=== PATIENT | female | born 1985 | race Caucasian/White ===

== ENCOUNTER 2020-02-08 09:41 | Emergency (ER) | payer OTHER, SELFPAY ==
[2020-02-08 09:49] VITALS: BP 140/61; PULSE 91; RESP 18; TEMP 36.7; O2SAT 97; BMI 43.4
--- NOTE | 2020-02-08 10:02 | XR_ITS ---
EXAMINATION: XR FOOT, RIGHT CLINICAL INFORMATION: Pain and swelling COMPARISON: None TECHNIQUE: AP, lateral, and oblique views of the right foot. FINDINGS: Bones of the midfoot are well aligned. No tarsal, metatarsal or phalangeal fracture. No significant degenerative changes are noted within the foot. No focal soft tissue swelling. No radiopaque foreign body. No gross ankle joint effusion. XR/XR foot RT min 3V IMPRESSION: Normal right foot.
--- NOTE | 2020-02-08 10:26 | ED_ITS ---
HPI - General Adult General Chief complaint: General Medical Stated complaint: R FOOT PAIN NKI Time Seen by Provider: 02/08/20 10:02 Source: patient Mode of arrival: ambulatory Limitations: no limitations History of Present Illness HPI narrative: Pain to the plantar aspect of the right foot on and off for couple months worse over the past couple of days. Denies any injury. Saw her primary care doctor several months ago got better with NSAIDs. Did not have any x-rays. Pain mostly to the plantar aspect of the foot no radiation of the pain. No calf pain. No leg swelling. No foot swelling. MD complaint: Pain to the plantar aspect of the right foot on and off for couple of month Onset (ago): month(s) Severity: moderate Relieving factors: none Exacerbating factors: none Associated symptoms: denies other symptoms Related Data Previous Rx's Medication Instructions Recorded naproxen 500 mg PO BID PRN #14 tab 02/08/20 prednisone 40 mg PO DAILY 5 Days #10 tab 02/08/20 Allergies Allergy/AdvReac Type Severity Reaction Status Date / Time No Known Allergies Allergy Verified 02/08/20 09:51 [No Known Allergies*] Review of Systems Review of Systems: Constitutional: No Weight loss, No Fever ENT/Mouth: No Hearing loss, No Ear Pain, No Nasal Congestion, No Sinus Pain, No Hoarseness, No sore throat, No Rhinorrhea, No Swallowing Difficulty Eyes: No Eye Pain, No Swelling, No Redness, No Foreign Body, No Discharge, No Vision Changes Cardiovascular: No Chest Pain Respiratory: No Cough, Musculoskeletal: No joint pain, No Myalgias, No Joint Swelling Skin: No Skin Lesions, No rash Neuro: No Weakness Psych: No Social Issues, Heme/Lymph: No Bruising, No Bleeding,No Lymphadenopathy Endocrine: No Polyuria, No Polydipsia, No Temperature Intolerance Yes all other systems are reviewed and are negative [facility] Past Medical History Attestation statement: The following information was validated with the patient. Medical History (Updated 02/08/20 @ 10:42 by Yariel Varghese NP) Arthritis Asthma Social History Social History Advance Directives: No Advance Directives Information Provided: No Physical Exam Vital Signs: Vital Signs: Last Vital Signs Temp 98.0 F 02/08/20 09:49 Pulse 91 02/08/20 09:49 Resp 18 11/14/20 09:49 BP 140/61 H 11/14/20 09:49 Pulse Ox 97 02/08/20 09:49 Body Mass Index 43.4 Reviewed Const: General: cooperative and healthy appearing; No acute distress or intoxicated appearing Nutritional Appearance: average body habitus Orientation/consciousness: patient oriented x3 HENMT: Head: Yes normal to inspection Ears: hearing grossly normal bilaterally Eyes: General: appearance normal, both eyes and all related structures Visual Perez: normal visual perez by confrontation Chest: Chest palpation & inspection: normal inspection of the chest Resp: Effort & Inspection: normal respiratory effort Skin: General skin exam: no rashes or lesions noted Neuro: General: patient oriented x3 Extrem: Other: Slight tender palpation over the mid plantar aspect of the right foot. No obvious erythema, induration or open wounds. General: Yes normal to inspection Discharge Plan Discharge Clinical Impression: Plantar fasciitis Instructions: Plantar Fasciitis (ED), Plantar Fasciitis Exercises (ED) Additional Instructions: Prescription sent to your pharmacy Prescriptions: New naproxen 500 mg tablet 500 mg PO BID PRN (Reason: pain) Qty: 14 RF: 0 prednisone 20 mg tablet 40 mg PO DAILY 5 Days Qty: 10 RF: 0
== END 2020-02-08 10:55 | disposition home or self-care (01) ==
PROVIDERS: Emergency Provider Emergency Medicine; PCP Nurse Practitioner Family
DX: M72.6 Necrotizing fasciitis (principal); M79.672 Pain in left foot; M79.671 Pain in right foot
CPT/HCPCS: 73630; 99283

== ENCOUNTER 2020-03-09 14:53 | Emergency (ER) | payer OTHER, SELFPAY ==
[2020-03-09 16:01] VITALS: BP 129/82; PULSE 99; RESP 16; TEMP 36.9; O2SAT 98; BMI 45.7
--- NOTE | 2020-03-09 16:07 | ED.BACK ---
HPI - Back Pain/Injury General Chief Complaint: Back Pain/Injury <KELLY Palmer - Last Filed: 03/09/20 18:03> Stated Complaint: back pain - work injury 03/01/20 <KELLY Palmer - Last Filed: 03/09/20 18:03> Time Seen by Provider: 03/09/20 16:07 <KELLY Palmer - Last Filed: 03/09/20 18:03> Source: patient <KELLY Palmer Last Filed: 03/09/20 18:03> Mode of arrival: ambulatory <KELLY Palmer Last Filed: 03/09/20 18:03> Limitations: no limitations <KELLY Palmer Last Filed: 03/09/20 18:03> History of Present Illness HPI Narrative: 35 y/o female presenting with work related back injury that occurred on 03/01. She states that when she went to lift a 50lb box on that day she had immediate low back pain. She has been out of work since. She states the pain has been worsening making it difficult to walk, sleep, and get comfortable. She reports new onset of urinary incontinence x3 in the last 2 days. She denies numbness or tingling but reports the pain radiates down into her buttocks and posterior legs to the knee. <KELLY Palmer - Last Filed: 03/09/20 18:03> MD elicited complaint: back pain and back injury <KELLY Palmer Last Filed: 03/09/20 18:03> Onset (ago): day(s) (8) <KELLY Palmer - Last Filed: 03/09/20 18:03> Timing: progressively worsening <KELLY Palmer Last Filed: 03/09/20 18:03> Severity: severe <KELLY Palmer Last Filed: 03/09/20 18:03> Pain scale (0-10): 10 <KELLY Palmer Last Filed: 03/09/20 18:03> Similar Symptoms Previously: No <KELLY Palmer Last Filed: 03/09/20 18:03> Quality: sharp <KELLY Palmer Last Filed: 03/09/20 18:03> Location: lumbar spine <KELLY Palmer Last Filed: 03/09/20 18:03> Radiation: buttocks, left upper leg and right upper leg <KELLY Palmer Last Filed: 03/09/20 18:03> Exacerbating factors: movement, supine positioning, walking and coughing/sneezing <KELLY Palmer Last Filed: 03/09/20 18:03> Relieving factors: immobilization <KELLY Palmer - Last Filed: 03/09/20 18:03> Context: while lifting <KELLY Palmer Last Filed: 03/09/20 18:03> Associated symptoms: difficulty walking and urinary incontinence <KELLY Palmer Last Filed: 03/09/20 18:03> Treatments prior to arrival: NSAIDS <KELLY Palmer Last Filed: 03/09/20 18:03> Work related injury: Yes <KELLY Palmer Last Filed: 03/09/20 18:03> Related Data Home Medications: Previous Rx's Medication Instructions Recorded naproxen 500 mg PO BID PRN #14 tab 02/08/20 prednisone 40 mg PO DAILY 5 Days #10 tab 02/08/20 <KELLY Palmer Last Filed: 03/09/20 18:03> Allergies/Adverse Reactions: Allergies Allergy/AdvReac Type Severity Reaction Status Date / Time No Known Allergies Allergy Verified 02/08/20 09:51 [No Known Allergies*] <KELYL Palmer Last Filed: 03/09/20 18:03> Review of Systems Review of Systems: Constitutional: No Fever, No Chills Cardiovascular: No Chest Pain, No SOB Respiratory: No Cough, No Sputum, No Wheezing, No dyspnea Gastrointestinal: No Nausea, No Vomiting, No Diarrhea, No abdominal Pain Genitourinary: No Dysuria, No Urinary Frequency, No Hematuria, +urinary incontinence Musculoskeletal: + joint pain, + Myalgias Skin: No Skin Lesions, No rash Neuro: + Weakness, No Numbness, No Dizziness, No Headache Psych: No Anxiety/Panic, No Depression Heme/Lymph: No Bruising, No Lymphadenopathy Endocrine: No Polyuria, No Polydipsia <KELLY Palmer - Last Filed: 03/09/20 18:03> FORMERLY [facility], [facility] Past Medical History Attestation statement: The following information was validated with the patient. <KELLY Palmer - Last Filed: 03/09/20 18:03> Medical History: Medical History Arthritis Asthma <KELLY Palmer - Last Filed: 03/09/20 18:03> Surgical History: Surgical History (Updated 03/09/20 @ 16:06 by Mara Gurrola) H/O knee surgery H/O tubal ligation Hx of cholecystectomy Hx of shoulder surgery S/P foot surgery <KELLY Palmer - Last Filed: 03/09/20 18:03> Social History Social History: Social History Smoking Status: Never smoker Use of substances other than those prescribed or required for medical reasons: No Advance Directives: No Advance Directives Information Provided: Yes <KELLY Palmer - Last Filed: 03/09/20 18:03> Physical Exam Vital Signs: Vital Signs: Last Vital Signs Temp 98.6 F 03/09/20 18:48 Pulse 83 03/09/20 18:48 Resp 17 03/09/20 18:48 BP 105/57 L 03/09/20 18:48 Pulse Ox 97 03/09/20 18:48 Body Mass Index 45.7 Appearance: Alert. Oriented X3. Appears uncomfortable. HEENT: normal inspection CVS: Normal heart rate and rhythm. Pulses normal. Respiratory: No respiratory distress. Skin: Skin warm and dry. Normal skin color. Normal skin turgor. No rashes. Back: lumbar tenderness throughout, with SI joint tenderness bilaterally Extremities: bilateral LE weakness due to pain, unable to assess DTR due to patient positioning and pain. Neuro: Oriented X 3. Ambulates with slow but steady gait. Normal rectal tone <KELLY Palmer - Last Filed: 03/09/20 18:03> Vital Signs: Last Vital Signs Temp 98.6 F 03/09/20 18:48 Pulse 83 03/09/20 18:48 Resp 17 03/09/20 18:48 BP 105/57 L 03/09/20 18:48 Pulse Ox 97 03/09/20 18:48 Body Mass Index 45.7 <Sheyla Willett NP - Last Filed: 03/09/20 22:03> Course Course Course Narrative: 35 y/o female presenting with severe LBP and urinary incontinence. Need to r/o cauda equina syndrome. STAT MRI ordered for now. Signed out to Sheyla MAYORGA. <KELLY Palmer - Last Filed: 03/09/20 18:03> MDM - Back Pain/Injury MDM Narrative Medical decision making narrative: r/o cauda equina <KELLY Palmer - Last Filed: 03/09/20 18:03> Differential Diagnosis Differential diagnosis: Likely lumbar radiculopathy, sciatica and strain of lumbar region <KELLY Palmer - Last Filed: 03/09/20 18:03> Likely lumbar radiculopathy, strain of lumbar region and thoracic back pain <Sheyla Willett NP - Last Filed: 03/09/20 22:03> Medical Records Attestation: I reviewed the patient's medical records. <Sheyla Willett NP - Last Filed: 03/09/20 22:03> Lab Data Attestation: I reviewed the patient's lab results. <Sheyla Willett NP - Last Filed: 03/09/20 22:03> Imaging Data Lumbar MRI: Attestation: I personally reviewed and interpreted this imaging study as follows: <Sheyla Willett NP - Last Filed: 03/09/20 22:03> Radiologist's impression: EXAMINATION: MR LUMBAR SPINE WITHOUT CONTRAST CLINICAL INFORMATION: Severe lower back pain. Incontinence. COMPARISON: CT abdomen and pelvis from 06/01/2019. TECHNIQUE: MRI of the lumbar spine was obtained using routine sequences without contrast. FINDINGS: Minimal degenerative retrolisthesis of L4 on L5 and L5 on S1. Otherwise, normal anatomic alignment. The vertebral body heights are maintained. Moderate degenerative disc disease at L5-S1 with partial loss of disc height and desiccation. The remaining intervertebral discs are of normal height and signal. Mild Modic type II discogenic endplate change at T11-T12 and T12-L1. No suspicious marrow edema. The conus medullaris terminates at the level of L1. The distal spinal cord is normal in appearance. Moderate subcutaneous edema within the soft tissues of the back from the level of T12-L5. Otherwise, no Significant abnormalities of the paraspinal musculature. There is scarring of the upper pole of the right kidney. Small T2 hyperintense physiologic follicles associated with the ovaries. Otherwise, limited evaluation of the intra-abdominal structures without significant abnormalities. The abdominal aorta is of normal contour and caliber. AXIAL SPINAL LEVELS: L1-L2: Normal annular contour. There is moderate bilateral facet joint arthropathy. There is no neural foraminal stenosis. There is no spinal canal stenosis. L2-L3: Normal annular contour. There is moderate bilateral facet joint arthropathy. There is no neural foraminal stenosis. There is no spinal canal stenosis. L3-L4: Shallow diffuse disc bulge. There is moderate bilateral facet joint arthropathy. There is mild right in the left neural foraminal stenosis. There is no spinal canal stenosis. L4-L5: Shallow diffuse disc bulge. There is moderate bilateral facet joint arthropathy. There is mild right and no left neural foraminal stenosis. There is mild spinal canal stenosis. L5-S1: Mild diffuse disc bulge. There is moderate bilateral facet joint arthropathy. There is mild left and no right neural foraminal stenosis. There is mild narrowing of the subarticular zones with no overt spinal canal stenosis centrally. MR/MR lumbar spine wo con IMPRESSION: Mild multilevel degenerative spinal arthropathy of the lumbar spine as described in detail above. No overt spinal canal stenosis or nerve root compression. Moderate subcutaneous edema within the soft tissues of the back without discrete fluid collection. Nonspecific scarring of the right kidney. <Sheyla Willett NP - Last Filed: 03/09/20 22:03> Discharge Plan Discharge Clinical Impression: Strain of lumbar region Qualifiers: Encounter type: initial encounter Qualified Code(s): S39.012A - Strain of muscle, fascia and tendon of lower back, initial encounter <KELLY Palmer - Last Filed: 03/09/20 18:03> Patient Disposition: Home, Self-Care <KELLY Palmer - Last Filed: 03/09/20 18:03> Instructions: Low Back Strain (ED), Lower Back Exercises (ED), Core Strengthening Exercises (ED) <KELLY Palmer - Last Filed: 03/09/20 18:03> Additional Instructions: You were evaluated for lower back pain with an episode of bladder incontinence. MRI of the lower spine shows some swelling consistent with muscular strain. There is no indication of infection or abscess at this time. Please follow-up with your primary care physician, you may need physical therapy to help alleviate your symptoms. If symptoms get worse please return to the emergency department immeditley. you were prescribed naproxen and prednisone to help decrease the swelling and pain. You may consider using ice, heat, massage therapy to help alleviate symptoms. Thank you for choosing this emergency department for evaluation. Please follow-up with primary care physician as needed. Return to the emergency department for any new, concerning, or worsening symptoms. <KELLY Palmer - Last Filed: 03/09/20 18:03> Prescriptions: No Action naproxen 500 mg tablet 500 mg PO BID PRN (Reason: pain) Qty: 14 RF: 0 prednisone 20 mg tablet 40 mg PO DAILY 5 Days Qty: 10 RF: 0 <KELLY Palmer - Last Filed: 03/09/20 18:03> Referrals: Loy Harris MD [Physician] - 2 days (Lower back pain) <KELLY Palmer - Last Filed: 03/09/20 18:03> Interventions: ED Discharge Assessment Last Done: 03/09/20 19:45 <KELLY Palmer - Last Filed: 03/09/20 18:03> Discharge Date/Time: 03/09/20 19:46 <KELLY Palmer - Last Filed: 03/09/20 18:03>
--- NOTE | 2020-03-09 16:24 | MR_ITS ---
EXAMINATION: MR LUMBAR SPINE WITHOUT CONTRAST CLINICAL INFORMATION: Severe lower back pain. Incontinence. COMPARISON: CT abdomen and pelvis from 06/01/2019. TECHNIQUE: MRI of the lumbar spine was obtained using routine sequences without contrast. FINDINGS: Minimal degenerative retrolisthesis of L4 on L5 and L5 on S1. Otherwise, normal anatomic alignment. The vertebral body heights are maintained. Moderate degenerative disc disease at L5-S1 with partial loss of disc height and desiccation. The remaining intervertebral discs are of normal height and signal. Mild Modic type II discogenic endplate change at T11-T12 and T12-L1. No suspicious marrow edema. The conus medullaris terminates at the level of L1. The distal spinal cord is normal in appearance. Moderate subcutaneous edema within the soft tissues of the back from the level of T12-L5. Otherwise, no Significant abnormalities of the paraspinal musculature. There is scarring of the upper pole of the right kidney. Small T2 hyperintense physiologic follicles associated with the ovaries. Otherwise, limited evaluation of the intra-abdominal structures without significant abnormalities. The abdominal aorta is of normal contour and caliber. AXIAL SPINAL LEVELS: L1-L2: Normal annular contour. There is moderate bilateral facet joint arthropathy. There is no neural foraminal stenosis. There is no spinal canal stenosis. L2-L3: Normal annular contour. There is moderate bilateral facet joint arthropathy. There is no neural foraminal stenosis. There is no spinal canal stenosis. L3-L4: Shallow diffuse disc bulge. There is moderate bilateral facet joint arthropathy. There is mild right in the left neural foraminal stenosis. There is no spinal canal stenosis. L4-L5: Shallow diffuse disc bulge. There is moderate bilateral facet joint arthropathy. There is mild right and no left neural foraminal stenosis. There is mild spinal canal stenosis. L5-S1: Mild diffuse disc bulge. There is moderate bilateral facet joint arthropathy. There is mild left and no right neural foraminal stenosis. There is mild narrowing of the subarticular zones with no overt spinal canal stenosis centrally. MR/MR lumbar spine wo con IMPRESSION: Mild multilevel degenerative spinal arthropathy of the lumbar spine as described in detail above. No overt spinal canal stenosis or nerve root compression. Moderate subcutaneous edema within the soft tissues of the back without discrete fluid collection. Nonspecific scarring of the right kidney.
[2020-03-09] MEDS: oxyCODONE HCl Immed Release 5 MG TABLET PO (16:38)
[2020-03-09] MEDS: Acetaminophen 325 MG TABLET 975 MG PO (16:39)
--- NOTE | 2020-03-09 17:19 | PC.NURSE ---
MRI SCREENING FORM FAXED TO MRI BY NICOLE Stewart RN.
[2020-03-09 18:48] VITALS: BP 105/57; PULSE 83; RESP 17; TEMP 37; O2SAT 97
== END 2020-03-09 19:46 | disposition home or self-care (01) ==
PROVIDERS: Emergency Provider Internal Medicine; PCP Nurse Practitioner Family
DX: S39.012A Strain of muscle, fascia and tendon of lower back, initial encounter (principal); X50.0XXA Overexertion from strenuous movement or load, initial encounter; R32 Unspecified urinary incontinence; Y93.9 Activity, unspecified; Y92.9 Unspecified place or not applicable; Y99.0 Civilian activity done for income or pay
CPT/HCPCS: 72148; 99284; 99285

== ENCOUNTER 2020-03-21 18:42 | Emergency (ER) | payer OTHER, SELFPAY ==
[2020-03-21 19:11] VITALS: BP 134/88; PULSE 90; RESP 16; TEMP 37.1; O2SAT 98; BMI 44.2
--- NOTE | 2020-03-21 20:20 | ED.BACK ---
HPI - Back Pain/Injury General Chief Complaint: Back Pain/Injury Stated Complaint: back pain Time Seen by Provider: 03/21/20 20:14 Source: patient Mode of arrival: ambulatory Limitations: no limitations History of Present Illness HPI Narrative: Patient comes to emergency room complaining of chronic back pain. Patient states on March 01 she injured her back lifting a heavy box, approximately 50 lb, she heard a pop. Patient was seen here on March 07, patient came in complaining on that day for urinary incontinence and back pain, an MRI was done, which showed no spinal canal stenosis or nerve root compression. Patient states her symptoms have been unchanged since March 01. Patient denies any new symptoms, no stool retention or incontinence MD elicited complaint: back pain Related Data Previous Rx's Medication Instructions Recorded naproxen 500 mg PO BID PRN #14 tab 02/08/20 prednisone 40 mg PO DAILY 5 Days #10 tab 02/08/20 tramadol 50 mg PO Q8H PRN #10 tab 03/21/20 Allergies Allergy/AdvReac Type Severity Reaction Status Date / Time No Known Allergies Allergy Verified 02/08/20 09:51 [No Known Allergies*] Review of Systems Review of Systems: Constitutional : No Weight loss, No Fever, No Chills, No Night Sweats, No Fatigue, No Malaise ENT/Mouth : No Hearing loss, No Ear Pain, No Nasal Congestion, No Sinus Pain, No Hoarseness, No sore throat, No Rhinorrhea, No Swallowing Difficulty Eyes: No Eye Pain, No Swelling, No Redness, No Foreign Body, No Discharge, No Vision Changes Cardiovascular : No Chest Pain, No SOB, No Dyspnea on Exertion, No Orthopnea, No Edema, No Palpitations Respiratory : No Cough, No Sputum, No Wheezing, No Smoke Exposure, No Dyspnea Gastrointestinal : No Nausea, No Vomiting, No Diarrhea, No Constipation, No abdominal Pain, No Hematochezia, No Melena Genitourinary : no irregular bleeding, No Dysuria, No Urinary Frequency, No Hematuria, Reports urinary incontinence since March 01 which remains unchanged since then, No Urgency, No Flank Pain, No Urinary Flow Changes, No Hesitancy Musculoskeletal : Complaining of back pain radiating towards both legs Skin : No Skin Lesions, No rash Neuro : No Weakness, No Numbness, No Paresthesias, No Loss of Consciousness, No Dizziness, No Headache Psych : No Anxiety/Panic, No Depression, No SI/HI/AH/VH, No Social Issues, Heme/Lymph: No Bruising, No Bleeding,No Lymphadenopathy Endocrine : No Polyuria, No Polydipsia, No Temperature Intolerance [facility] Past Medical History Medical History Arthritis Asthma Surgical History H/O knee surgery H/O tubal ligation Hx of cholecystectomy Hx of shoulder surgery S/P foot surgery Social History Social History Smoking Status: Never smoker Advance Directives: No Advance Directives Information Provided: No Physical Exam Vital Signs: Vital Signs: Last Vital Signs Temp 98.8 F 03/21/20 19:11 Pulse 90 03/21/20 19:11 Resp 16 03/21/20 19:11 BP 134/88 03/21/20 19:11 Pulse Ox 98 03/21/20 19:11 Body Mass Index 44.2 Appearance: Alert. Oriented X3. No acute distress. Eyes: Pupils equal, round and reactive to light. ENT: Pharynx normal. Neck: Normal inspection. Neck supple. No lymph nodes noted. No crepitus CVS: Normal heart rate and rhythm. Pulses normal. Normal S1 and S2 Respiratory: No respiratory distress. Breath sounds normal. No Wheezing. No rales Abdomen: Soft and nontender. No rigidity. No distention. good BS x4 Back: Pain to palpation over lumbar area, positive bilateral straight leg leg raise test Skin: Skin warm and dry. Normal skin color. Normal skin turgor. Extremities: No lower extremity edema. No lower extremity edema. No Lacerations. No Rash, patient is ambulatory Neuro: Oriented X 3. No motor deficit. No sensory deficit. Moving all extermities. No slurred speech. Course Course Course Narrative: Patient's symptoms are unchanged for the last 20 days. MRI done on March 07 showed no acute pathology. I discussed with the patient that she needs to follow up with her primary care physician, she will likely need physical therapy MRI of March 07: Mild multilevel degenerative spinal arthropathy of the lumbar spine as described in detail above. No overt spinal canal stenosis or nerve root compression. Moderate subcutaneous edema within the soft tissues of the back without discrete fluid collection. Nonspecific scarring of the right kidney. I discussed the patient to discontinue taking naproxen, as she received 1 shot of Toradol. MDM - Back Pain/Injury Differential Diagnosis Differential diagnosis: Likely lumbar radiculopathy, sciatica and strain of lumbar region Discharge Plan Discharge Clinical Impression: Lumbar radiculopathy Patient Disposition: Home, Self-Care Instructions: Lumbar Radiculopathy (ED) Additional Instructions: Please follow-up with your primary care physician. Please stop taking naproxen Prescriptions: New tramadol 50 mg tablet 50 mg PO Q8H PRN (Reason: pain) Qty: 10 RF: 0 No Action naproxen 500 mg tablet 500 mg PO BID PRN (Reason: pain) Qty: 14 RF: 0 prednisone 20 mg tablet 40 mg PO DAILY 5 Days Qty: 10 RF: 0
[2020-03-21] MEDS: dexAMETHasone sod phosphate 4 MG/ML VIAL IM (20:44)
[2020-03-21] MEDS: Ketorolac Tromethamine 60 MG/2 ML VIAL IM (20:44)
== END 2020-03-21 20:57 | disposition home or self-care (01) ==
PROVIDERS: Emergency Provider Emergency Medicine; PCP Nurse Practitioner Family
DX: M54.16 Radiculopathy, lumbar region (principal)
CPT/HCPCS: 96372; 99284; J1100; J1885

== ENCOUNTER 2020-04-26 09:53 | Emergency (ER) | payer OTHER, SELFPAY ==
[2020-04-26 10:18] VITALS: BP 140/84; PULSE 94; RESP 16; TEMP 36.8; O2SAT 96; BMI 46.0
[2020-04-26 10:41] LABS: Glucose Urine UA NEG (NEG); Leukocyte Esterase Urine 2+ (NEG); Nitrite Urine NEG (NEG); UACC Culture Trigger YES; Urine Blood NEG (NEG); Urine Ketones NEG (NEG); Urine Protein NEG (NEG-TRACE)
[2020-04-26 10:43] LABS: Appearance Urine HAZY; Color Urine STRAW; UPreg QC Valid YES
[2020-04-26 10:44] LABS: Urine Pregnancy NEGATIVE (NEGATIVE)
--- NOTE | 2020-04-26 10:47 | ED_ITS ---
HPI - Female Genitourinary General Chief complaint: Urogenital-Female Stated complaint: ?UTI Time Seen by Provider: 04/26/20 10:18 Source: patient Mode of arrival: ambulatory Limitations: no limitations History of Present Illness HPI Narrative: Burning and discomfort with urine ?I think I have a UTI again.... It feels like it? elicited complaint: UTI Onset (ago): day(s) Severity: moderate Quality of pain: burning Consistency: intermittent Vaginal discharge: none Vaginal bleeding: none Urinary symptoms: Dysuria Exacerbating factors: urination Associated symptoms: denies other symptoms Treatment prior to arrival: none Sexual activity: No Patient : No Related Data Previous Rx's Medication Instructions Recorded naproxen 500 mg PO BID PRN #14 tab 02/08/20 prednisone 40 mg PO DAILY 5 Days #10 tab 02/08/20 tramadol 50 mg PO Q8H PRN #10 tab 03/21/20 nitrofurantoin monohyd/m-cryst 100 mg PO Q12H 7 Days #14 cap 04/26/20 [Macrobid] phenazopyridine [Pyridium] 100 mg PO TID PRN #6 tab 04/26/20 Allergies Allergy/AdvReac Type Severity Reaction Status Date / Time No Known Allergies Allergy Verified 02/08/20 09:51 [No Known Allergies*] Review of Systems Review of Systems: Constitutional: No Weight loss, No Fever, No Chills, No Night Sweats, No Fatigue, No Malaise ENT/Mouth: No Hearing loss, No Ear Pain, No Nasal Congestion, No Sinus Pain, No Hoarseness, No sore throat, No Rhinorrhea, No Swallowing Difficulty Eyes: No Eye Pain, No Swelling, No Redness, No Foreign Body, No Discharge, No Vision Changes Cardiovascular: No Chest Pain, No SOB, No Dyspnea on Exertion, No Orthopnea, No Edema, No Palpitations Respiratory: No Cough, No Sputum, No Wheezing, No Smoke Exposure, No Dyspnea Gastrointestinal: No Nausea, No Vomiting, No Diarrhea, No Constipation, No abdominal Pain, No Hematochezia, No Melena Genitourinary: no irregular bleeding, + Dysuria, No Urinary Frequency, No Hematuria, No Urinary Incontinence, No Urgency, No Flank Pain Musculoskeletal: No joint pain, No Myalgias, No Joint Swelling Skin: No Skin Lesions, No rash Neuro: No Weakness, No Numbness, No Paresthesias, No Loss of Consciousness, No Dizziness, No Headache Psych: No Social Issues Heme/Lymph: No Bruising, No Bleeding,No Lymphadenopathy Endocrine: No Polyuria, No Polydipsia, No Temperature Intolerance Yes all other systems are reviewed and are negative [facility] Past Medical History Medical History (Updated 04/26/20 @ 11:29 by Yariel Varghese NP) Anxiety Arthritis Asthma Depression PTSD (post-traumatic stress disorder) Surgical History H/O knee surgery H/O tubal ligation Hx of cholecystectomy Hx of shoulder surgery S/P foot surgery Social History Social History Smoking Status: Never smoker Smoked in Last 30 Days: No Use of substances other than those prescribed or required for medical reasons: No Advance Directives: No Advance Directives Information Provided: Yes Physical Exam Vital Signs: Vital Signs: Last Vital Signs Temp 98.2 F 04/26/20 10:18 Pulse 94 04/26/20 10:18 Resp 16 04/26/20 10:18 BP 140/84 H 04/26/20 10:18 Pulse Ox 96 04/26/20 10:18 Body Mass Index 46.0 Reviewed Const: General: cooperative and healthy appearing; No acute distress or intoxicated appearing Nutritional Appearance: average body habitus Orientation/consciousness: patient oriented x3 HENMT: Head: Yes normal to inspection Ears: hearing grossly normal bi laterally Eyes: General: appearance normal, both eyes and all related structures Visual Perez: normal visual perez by confrontation Neck: Neck: Yes normal visual inspection, No positive Brudzinski's sign, No positive Kernig's sign and No tender Thyroid: Thyroid normal Chest: Chest palpation & inspection: normal inspection of the chest Resp: Effort & Inspection: normal respiratory effort Cardio: Jugular venous distension: no JVD Rhythm: regular rhythm Heart sounds: S1 normal heart sound present and S2 normal heart sound present GI: Inspection: Yes normal to inspection Percussion: Yes normal to percussion Auscultation: normal bowel sounds : General: Yes no CVA tenderness Back/Spine/Pelvis: Back: no CVA tenderness Skin: General skin exam: no rashes or lesions noted Neuro: General: patient oriented x3 Extrem: General: Yes normal to inspection Course Course Course Narrative: AP an exam consistent with acute UTI urine with positive leukocyte esterase with WBC though there is epithelial and bacterial cells. Previous culture from July 2019 mixed yas no sensitivity. negative. No systemic symptoms. Hemodynamically stable. Will give her short course Macrobid and Pyridium culture the urine and follow up. She feels comfortable plan. Stable for discharge. MDM - Female Genitourinary Lab Data Labs: Lab Results 04/26/20 Range/Units 10:31 Urine Color STRAW Urine Appearance HAZY Urine pH 7.0 (5.0-8.0) Ur Specific [place] 1.010 (1.005-1.025) Urine Protein NEG (NEG-TRACE) MG/DL Urine Glucose (UA) NEG (NEG) MG/DL Urine Ketones NEG (NEG) MG/DL Urine Blood NEG (NEG) Urine Nitrite NEG (NEG) Ur Leukocyte Esterase 2+ H (NEG) Urine RBC 0 (0) /HPF Urine WBC 5-9 H (0-4) /HPF Ur Squamous Epith Cells 2+ /LPF Urine Bacteria 1+ /LPF Urine Test NEGATIVE (NEGATIVE) Discharge Plan Discharge Clinical Impression: Urinary tract infection Patient Disposition: Home, Self-Care Instructions: Urinary Tract Infection in Women (ED) Prescriptions: New nitrofurantoin monohyd/m-cryst [Macrobid] 100 mg capsule 100 mg PO Q12H 7 Days Qty: 14 RF: 0 phenazopyridine [Pyridium] 100 mg tablet 100 mg PO TID PRN (Reason: pain) Qty: 6 RF: 0 No Action naproxen 500 mg tablet 500 mg PO BID PRN (Reason: pain) Qty: 14 RF: 0 prednisone 20 mg tablet 40 mg PO DAILY 5 Days Qty: 10 RF: 0 tramadol 50 mg tablet 50 mg PO Q8H PRN (Reason: pain) Qty: 10 RF: 0 Referrals: Charissa Singh NP [Primary Care Provider] - 5 days
[2020-04-26 11:02] LABS: Bacteria Urine 1+ /LPF; RBC Urine 0 /HPF (0); Squamous Epithelial Cell Urine 2+ /LPF
== END 2020-04-26 11:46 | disposition home or self-care (01) ==
PROVIDERS: Nurse Practitioner Primary Care; Emergency Provider Emergency Medicine; PCP Nurse Practitioner Family
DX: N39.0 Urinary tract infection, site not specified (principal); R30.0 Dysuria; Z79.899 Other long term (current) drug therapy
CPT/HCPCS: 81001; 81003; 81025; 87086; 99283

== ENCOUNTER 2020-05-01 08:34 | Emergency (ER) | payer OTHER, SELFPAY ==
--- NOTE | ~2020-05-01 | CT_ITS ---
EXAMINATION: CT ABDOMEN AND PELVIS WITH CONTRAST CLINICAL INFORMATION: Flank pain. COMPARISON: None TECHNIQUE: Multidetector volumetric images were obtained from the superior aspect of the liver through the pubic symphysis following administration 85 mL of Omnipaque 350 intravenous contrast. Sagittal and coronal reformatted images were obtained on the technologist's workstation. Oral contrast: No This CT examination was performed using dose optimization techniques as appropriate, variously including the following: *Automated exposure control *Adjustment of mA and/or kV according to patient size (this includes techniques or standardized protocols for targeted exams where dose is matched to indication/reason for exam; i.e. extremities or head) *Use of iterative reconstruction technique DLP: 1134 mGy-cm FINDINGS: LUNG BASES: The visualized lung bases are unremarkable. LIVER, GALLBLADDER, AND BILIARY TREE: The liver is normal in size, shape, and attenuation. No focal hepatic lesion or biliary ductal dilatation is present. The gallbladder has been surgically removed. PANCREAS: Unremarkable. SPLEEN: Unremarkable. ADRENAL GLANDS: Unremarkable. KIDNEYS AND URETERS: Both kidneys are normal size, shape and position. There is a small cortical defect along the midpole right kidney likely old scar. There are punctate hypodense areas in the cortices bilaterally likely small cysts. No radiopaque calculi seen. There is no hydronephrosis. BLADDER: Unremarkable. GASTROINTESTINAL TRACT: There is scattered stool and gas seen throughout the colon without any significant distention. The small bowel loops are normal caliber. The appendix is normal caliber. No free air or free fluid. ABDOMINAL WALL: There is small umbilical hernia containing fat. LYMPH NODES: Small shotty lymph nodes are seen in the retroperitoneum of which the largest lymph node measures 9 mm axial image 39/3 VASCULAR: Unremarkable. PELVIC VISCERA: The uterus is anteverted and appears unremarkable. There is no free fluid or free air OSSEOUS STRUCTURES: No lytic or sclerotic process seen. CT/CT abdomen pelvis w con IMPRESSION: No acute intra-abdominal process seen. There is no radiopaque urolith. However there are small bilateral cortical cysts with a right mid pole cortical scar from and thinning of cortex. Nonspecific small retrocrural lymph nodes
[2020-05-01 10:06] VITALS: BP 142/85; PULSE 98; RESP 18; TEMP 37.1; O2SAT 97; BMI 46.0
[2020-05-01] MEDS: 0.9 % Sodium Chloride 1,000 ML 999 ML IV (10:19)
[2020-05-01 10:24] LABS: MANUAL DIFF FLAG NO
[2020-05-01 10:25] LABS: Basophils Percent Auto 0.5 % (0-2); Eosinophils Absolute Auto 0.3 X10*3/uL (0.0-0.4); Hematocrit 39.1 % (37-47); Imm Gran Abs Auto 0.03 X10*3/uL (0.00-0.03); Imm Gran Pct Auto 0.5 % (0.0-0.4); Lymphocytes Absolute Auto 2.1 X10*3/uL (1.2-4.9); Lymphocytes Percent Auto 33.7 % (20-40); Mean Corpuscular HGB Conc 33.2 g/dl (31.0-35.0); Mean Corpuscular Hemoglobin 28.1 pg (27.0-33.0); Mean Corpuscular Volume 84.4 fL (80-98); Mean Platelet Volume 9.5 fL (9.4-12.3); Monocytes Absolute Auto 0.3 X10*3/uL (0.1-1.2); Monocytes Percent Auto 5.1 % (2-11); Neutrophils Absolute Auto 3.5 X10*3/uL (2.0-8.3); Neutrophils Percent Auto 56.2 % (45-73); Platelet Count 247 X10*3/uL (160-400); Red Blood Count 4.63 X10*6/uL (4.20-5.50); Red Cell Distribution Width 13.6 % (11.0-16.0); White Blood Count 6.2 X10*3/uL (4.8-10.8)
[2020-05-01 10:28] LABS: Appearance Urine HAZY; Color Urine AMBER; Glucose Urine UA NEG (NEG); Leukocyte Esterase Urine TRACE (NEG); Nitrite Urine POS (NEG); UACC Culture Trigger YES; Urine Blood NEG (NEG); Urine Ketones NEG (NEG); Urine Protein NEG (NEG-TRACE)
[2020-05-01 10:30] LABS: UPreg QC Valid YES; Urine Pregnancy NEGATIVE (NEGATIVE)
[2020-05-01 10:41] LABS: Bacteria Urine TRACE /LPF; RBC Urine 0-2 /HPF (0); Squamous Epithelial Cell Urine 2+ /LPF; UACC CULT YES
[2020-05-01 10:42] LABS: Mucus Urine TRACE /LPF
[2020-05-01 11:02] LABS: Alanine Aminotransferase 23 U/L (0-31); Albumin Level 3.9 g/dL (3.5-5.0); Alkaline Phosphatase 87 U/L (39-117); Anion Gap 11 (12-20); Aspartate Amino Transferase 23 U/L (5-31); Bilirubin Total 0.2 mg/dL (0.0-1.0); Blood Urea Nitrogen 10 mg/dL (9-16); Calcium 8.8 mg/dL (8.4-10.2); Carbon Dioxide 25 mmol/L (22-29); Chloride 107 mmol/L (96-108); Creatinine Clr Calc Pharmacy 115.4; Estimated Glomerular Filt Rate > 60; Glucose Random 133 mg/dL (60-115); Potassium 3.9 mmol/L (3.3-5.1); Sodium 139 mmol/L (135-145); Total Protein 6.9 g/dL (6.5-8.0)
[2020-05-01] MEDS: iohexoL 350 MG/ML 100 ML INFUS..BTL IV (12:45)
--- NOTE | 2020-05-01 12:48 | ED.FEMALEGU ---
HPI - Female Genitourinary General Chief complaint: Urogenital-Female Stated complaint: FLANK PAIN Time Seen by Provider: 05/01/20 09:52 Source: patient Mode of arrival: ambulatory Limitations: no limitations History of Present Illness HPI Narrative: 35-year-old female blood noted past medical history presenting with complaint of bilateral flank pain states she was recently seen here and diagnosed with a UTI states those symptoms have improved now having bilateral flank pain. Denies any fever or chills. MD elicited complaint: UTI Quality of pain: aching Sexual activity: No Patient : No Related Data Previous Rx's Medication Instructions Recorded naproxen 500 mg PO BID PRN #14 tab 02/08/20 prednisone 40 mg PO DAILY 5 Days #10 tab 02/08/20 tramadol 50 mg PO Q8H PRN #10 tab 03/21/20 nitrofurantoin monohyd/m-cryst 100 mg PO Q12H 7 Days #14 cap 04/26/20 [Macrobid] ciprofloxacin HCl 500 mg PO Q12H 3 Days #6 tab 05/01/20 naproxen 500 mg PO BID PRN #14 tab 05/01/20 Allergies Allergy/AdvReac Type Severity Reaction Status Date / Time No Known Allergies Allergy Verified 02/08/20 09:51 [No Known Allergies*] Review of Systems Review of Systems: Yes all other systems are reviewed and are negative PMFSH Past Medical History Medical History Anxiety Arthritis Asthma Depression PTSD (post-traumatic stress disorder) Surgical History H/O knee surgery H/O tubal ligation Hx of cholecystectomy Hx of shoulder surgery S/P foot surgery Social History Social History Alcohol intake: never Smoking Status: Never smoker Use of substances other than those prescribed or required for medical reasons: No Advance Directives: No Advance Directives Information Provided: Yes Physical Exam Vital Signs: Vital Signs: Last Vital Signs Temp 98.7 F 05/01/20 10:06 Pulse 98 05/01/20 10:06 Resp 18 05/01/20 10:06 BP 142/85 H 05/01/20 10:06 Pulse Ox 97 05/01/20 10:06 Body Mass Index 46.0 Reviewed Const: General: cooperative and healthy appearing; No acute distress or intoxicated appearing Nutritional Appearance: average body habitus Orientation/consciousness: patient oriented x3 HENMT: Head: Yes normal to inspection Ears: hearing grossly normal bilaterally Eyes: General: appearance normal, both eyes and all related structures Visual Christiansen: normal visual christiansen by confrontation Neck: Neck: Yes normal visual inspection, No positive Brudzinski's sign, No positive Kernig's sign and No tender Thyroid: Thyroid normal Chest: Chest palpation & inspection: normal inspection of the chest Resp: Effort & Inspection: normal respiratory effort Auscultation: clear to auscultation bilaterally Cardio: Jugular venous distension: no JVD Rhythm: regular rhythm Heart sounds: S1 normal heart sound present and S2 normal heart sound present GI: Inspection: Yes normal to inspection Percussion: Yes normal to percussion Auscultation: normal bowel sounds : General: Yes no CVA tenderness Back/Spine/Pelvis: Back: no CVA tenderness Thoracic/Lumbar Spine: paraspinal muscle tenderness (No rash, swelling, pain with movement and sitting up) bilaterally Skin: General skin exam: no rashes or lesions noted Neuro: General: patient oriented x3 Extrem: General: Yes normal to inspection Course Course Course Narrative: Urine culture from previous visit grew out mixed yas consistent with your general contamination. Clinically pain for positional and with movement. UA noninfected. No leukocytosis. Hemodynamically stable. CT without evidence of acute finding specifically no stone. There is nonspecific small retrocrural lymph nodes. Exam were consistent with musculoskeletal in etiology. She finished a course of Macrobid no need for any additional antibiotics at this time. Will discharge home with NSAIDs, muscle relaxants she feels better after Toradol. Stable for discharge. MDM - Female Genitourinary Lab Data Result diagrams: 05/01/20 10:17 05/01/20 10:17 Labs: Lab Results 05/01/20 05/01/20 05/01/20 Range/Units 10:17 10:17 10:17 WBC 6.2 (4.8-10.8) X10*3/uL RBC 4.63 (4.20-5.50) X10*6/uL Hgb 13.0 (12.0-16.0) g/dl Hct 39.1 (37-47) % MCV 84.4 (80-98) fL MCH 28.1 (27.0-33.0) pg MCHC 33.2 (31.0-35.0) g/dl RDW 13.6 (11.0-16.0) % Plt Count 247 (160-400) X10*3/uL MPV 9.5 (9.4-12.3) fL Immature Gran % (Auto) 0.5 H (0.0-0.4) % Neut % (Auto) 56.2 (45-73) % Lymph % (Auto) 33.7 (20-40) % [place] % (Auto) 5.1 (2-11) % Eos % (Auto) 4.0 (0-4) % Baso % (Auto) 0.5 (0-2) % Lymph # (Auto) 2.1 (1.2-4.9) X10*3/uL [place] # (Auto) 0.3 (0.1-1.2) X10*3/uL Eos # (Auto) 0.3 (0.0-0.4) X10*3/uL Baso # (Auto) 0.0 (0.0-0.2) X10*3/uL Abs Immat Gran (auto) 0.03 (0.00-0.03) X10*3/uL Absolute Neuts (auto) 3.5 (2.0-8.3) X10*3/uL Absolute Nucleated RBC 0.000 (0.0-0.012) X10*3/uL Nucleated RBC % (auto) 0.0 (0.0-0.2) /100WBC Sodium 139 (135-145) mmol/L Potassium 3.9 (3.3-5.1) mmol/L Chloride 107 (96-108) mmol/L Carbon Dioxide 25 (22-29) mmol/L Anion Gap 11 L (12-20) BUN 10 (9-16) mg/dL Creatinine 0.86 (0.5-1.4) mg/dL Estim Creat Clear Calc 115.4 Estimated GFR > 60 Random Glucose 133 H (60-115) mg/dL Calcium 8.8 (8.4-10.2) mg/dL Total Bilirubin 0.2 (0.0-1.0) mg/dL AST 23 (5-31) U/L ALT 23 (0-31) U/L Alkaline Phosphatase 87 (39-117) U/L Total Protein 6.9 (6.5-8.0) g/dL Albumin 3.9 (3.5-5.0) g/dL Urine Color MADDY Urine Appearance HAZY Urine pH 6.0 (5.0-8.0) Ur Specific [place] 1.010 (1.005-1.025) Urine Protein NEG (NEG-TRACE) MG/DL Urine Glucose (UA) NEG (NEG) MG/DL Urine Ketones NEG (NEG) MG/DL Urine Blood NEG (NEG) Urine Nitrite POS H (NEG) Ur Leukocyte Esterase TRACE H (NEG) Urine RBC 0-2 (0) /HPF Urine WBC 5-9 H (0-4) /HPF Ur Squamous Epith Cells 2+ /LPF Urine Bacteria TRACE /LPF Urine Mucus TRACE /LPF Urine Test NEGATIVE (NEGATIVE) Discharge Plan Discharge Clinical Impression: Urinary tract infection, Back pain Patient Disposition: Home, Self-Care Instructions: Urinary Tract Infection in Women (ED) Additional Instructions: The blood work was overall stable The CT scan of the abdomen pelvis did not show any acute abnormality Your previous urine culture from the last visit did not show specific bacteria causing your urine infection however today's urine sample shows more infection than previous and for this we have changed her antibiotic for 3 days of the new antibiotic called Cipro. Drink plenty of fluids Will call you if we need to change her antibiotics Follow with primary care doctor discussed Thank you Prescriptions: New ciprofloxacin HCl 500 mg tablet 500 mg PO Q12H 3 Days Qty: 6 RF: 0 naproxen 500 mg tablet 500 mg PO BID PRN (Reason: pain) Qty: 14 RF: 0 Discontinued phenazopyridine [Pyridium] 100 mg tablet 100 mg PO TID PRN (Reason: pain) Qty: 6 RF: 0 No Action naproxen 500 mg tablet 500 mg PO BID PRN (Reason: pain) Qty: 14 RF: 0 prednisone 20 mg tablet 40 mg PO DAILY 5 Days Qty: 10 RF: 0 tramadol 50 mg tablet 50 mg PO Q8H PRN (Reason: pain) Qty: 10 RF: 0 nitrofurantoin monohyd/m-cryst [Macrobid] 100 mg capsule 100 mg PO Q12H 7 Days Qty: 14 RF: 0 Referrals: Charissa Singh PIPE CAULKER [Primary Care Provider] - 3 days Interventions: ED Discharge Assessment Last Done: 05/01/20 14:16 Discharge Date/Time: 05/01/20 14:18
== END 2020-05-01 14:18 | disposition home or self-care (01) ==
PROVIDERS: Nurse Practitioner Primary Care; Emergency Provider Emergency Medicine Emergency Medical Services; PCP Nurse Practitioner Family
DX: N30.00 Acute cystitis without hematuria (principal)
CPT/HCPCS: 36415; 74177; 80053; 81001; 81025; 85025; 87086; 96360; 99283; 99284; Q9967

== ENCOUNTER 2020-05-07 20:24 | Emergency (ER) | payer OTHER, SELFPAY ==
--- NOTE | ~2020-05-07 | CT_ITS ---
EXAMINATION: CT ABDOMEN AND PELVIS WITH CONTRAST CLINICAL INFORMATION: Bilateral flank pain. COMPARISON: 05/01/2020. TECHNIQUE: Contiguous axial thin section helical images of the abdomen and pelvis were performed following the administration of 85 mL of intravenous Omnipaque 350. The data set was reformatted in the coronal and sagittal planes and reviewed on an independent workstation. DLP: 987 mGy-cm. FINDINGS: The visualized lung bases are clear. The visualized portions of the heart are unremarkable. The liver is of normal size and attenuation without focal lesions nor intrahepatic biliary ductal dilation. The patient is status post cholecystectomy. Surgical clips are identified. The spleen, pancreas, adrenal glands are unremarkable. Both kidneys are of normal size and attenuation without hydronephrosis. There is a nonobstructive 3 mm calculus within the upper pole of the left kidney. Cortical scarring within the upper poles of each kidney is stable. Following the administration of IV contrast, prompt symmetric nephrograms are displayed. There is no abdominal free fluid. There is neither mesenteric nor retroperitoneal lymphadenopathy. There is a fat-containing umbilical hernia. Normal unopacified loops of small and large bowel are identified. A normal appendix is identified. There is a 2.5 cm right adnexal low-attenuation lesion, possibly instruments sales representative of a cyst, unchanged from prior exam. There is no pelvic free fluid. The urinary bladder is unremarkable. There is neither pelvic nor inguinal lymphadenopathy. Bone windows: Neither sclerotic nor lytic bone lesions are identified. CT/CT abdomen pelvis w con IMPRESSION: No acute abdominal or pelvic inflammatory or infectious processes. Stable 2.5 cm right adnexal cyst. Automated exposure control (Care Dose) Adjustment of the mA and/or kv according to patient size (this includes techniques or standardized protocols for targeted exams where dose is matched to indication / reason for exam; i.e. extremities or head).
[2020-05-07 21:07] VITALS: BP 108/60; PULSE 93; RESP 18; TEMP 36.8; O2SAT 97; BMI 46.0
[2020-05-07 22:23] LABS: MANUAL DIFF FLAG NO
[2020-05-07 22:25] LABS: Basophils Percent Auto 0.5 % (0-2); Eosinophils Absolute Auto 0.3 X10*3/uL (0.0-0.4); Eosinophils Percent Auto 3.7 % (0-4); Hematocrit 38.7 % (37-47); Hemoglobin 12.5 g/dl (12.0-16.0); Imm Gran Abs Auto 0.04 X10*3/uL (0.00-0.03); Imm Gran Pct Auto 0.5 % (0.0-0.4); Lymphocytes Absolute Auto 2.7 X10*3/uL (1.2-4.9); Lymphocytes Percent Auto 34.1 % (20-40); Mean Corpuscular HGB Conc 32.3 g/dl (31.0-35.0); Mean Corpuscular Hemoglobin 27.6 pg (27.0-33.0); Mean Corpuscular Volume 85.4 fL (80-98); Mean Platelet Volume 9.4 fL (9.4-12.3); Monocytes Absolute Auto 0.4 X10*3/uL (0.1-1.2); Monocytes Percent Auto 5.6 % (2-11); Neutrophils Absolute Auto 4.4 X10*3/uL (2.0-8.3); Neutrophils Percent Auto 55.6 % (45-73); Platelet Count 255 X10*3/uL (160-400); Red Blood Count 4.53 X10*6/uL (4.20-5.50); White Blood Count 7.9 X10*3/uL (4.8-10.8)
--- NOTE | 2020-05-07 22:27 | ED_ITS ---
HPI - Female Genitourinary General Chief complaint: Urogenital-Female Stated complaint: Flank pain Time Seen by Provider: 05/07/20 22:04 Source: patient Mode of arrival: ambulatory History of Present Illness HPI Narrative: This is a 35-year-old female with a history of asthma and presents with bilateral CVA tenderness that is associated with significant nausea as well as pain on urination. She states her LMP is 04/09/2020 and that there is ?no chance that she is ?. She says that she was recently treated for a UTI with Macrobid, but continued to have symptoms and then was treated with a 3 day course of Cipro, but continues to have urinary burning and has now developed the bilateral back pain/flank pain. However, she denies any fevers, chills, shortness of breath, worsening of pain with deep inspiration, food associations, cough. Related Data Previous Rx's Medication Instructions Recorded naproxen 500 mg PO BID PRN #14 tab 02/08/20 prednisone 40 mg PO DAILY 5 Days #10 tab 02/08/20 tramadol 50 mg PO Q8H PRN #10 tab 03/21/20 nitrofurantoin monohyd/m-cryst 100 mg PO Q12H 7 Days #14 cap 04/26/20 [Macrobid] ciprofloxacin HCl 500 mg PO Q12H 3 Days #6 tab 05/01/20 naproxen 500 mg PO BID PRN #14 tab 05/01/20 Allergies Allergy/AdvReac Type Severity Reaction Status Date / Time No Known Allergies Allergy Verified 02/08/20 09:51 [No Known Allergies*] Review of Systems Review of Systems: Pertinent positives and negatives as stated in HPI 10 point review of systems is otherwise negative. [facility] Past Medical History Source: nursing notes reviewed Medical History Anxiety Arthritis Asthma Depression PTSD (post-traumatic stress disorder) Surgical History H/O knee surgery H/O tubal ligation Hx of cholecystectomy Hx of shoulder surgery S/P foot surgery Social History Social History Alcohol intake: never Smoking Status: Never smoker Use of substances other than those prescribed or required for medical reasons: No Advance Directives: No Advance Directives Information Provided: Yes Physical Exam Vital Signs: Vital Signs: Last Vital Signs Temp 98.2 F 05/07/20 21:07 Pulse 90 05/07/20 23:11 Resp 16 05/07/20 23:11 BP 106/58 L 05/07/20 23:11 Pulse Ox 96 05/07/20 23:11 Body Mass Index 46.0 VITAL SIGNS: Reviewed. GENERAL: Well developed, well nourished, in no acute distress. NOSE: Nares patent bilateral OROPHARYNX: no oral lesions noted, posterior pharynx clear NECK: Supple, no adenopathy LUNGS: Normal breath sounds. No adventitious sounds or accessory muscle use. SpO2<97> CARDIOVASCULAR: Regular rate and rhythm without noted murmurs ABDOMEN: Soft, non-tender, non-distended with bowel sounds. Bilateral CVA tenderness NEUROLOGIC: Alert and oriented x 4. Strength and sensation to light touch were grossly intact x 4. Course Course Course Narrative: This is a 35-year-old female with history and clinical presentation suggestive of possible pyelonephritis, although bilateral would be unusual. Patient is status post cholecystectomy. Review of all investigations is without acute findings. No evidence to suggest pancreatitis, pyelonephritis, UTI. All results and findings were discussed with patient at bedside and she was discharged in stable conditions with instructions to follow-up with her primary care provider. MDM - Female Genitourinary Lab Data Result diagrams: 05/07/20 22:16 05/07/20 22:16 Labs: Lab Results 05/07/20 05/07/20 05/07/20 Range/Units 22:16 22:16 22:16 WBC 7.9 (4.8-10.8) X10*3/uL RBC 4.53 (4.20-5.50) X10*6/uL Hgb 12.5 (12.0-16.0) g/dl Hct 38.7 (37-47) % MCV 85.4 (80-98) fL MCH 27.6 (27.0-33.0) pg MCHC 32.3 (31.0-35.0) g/dl RDW 14.0 (11.0-16.0) % Plt Count 255 (160-400) X10*3/uL MPV 9.4 (9.4-12.3) fL Immature Gran % (Auto) 0.5 H (0.0-0.4) % Neut % (Auto) 55.6 (45-73) % Lymph % (Auto) 34.1 (20-40) % [place] % (Auto) 5.6 (2-11) % Eos % (Auto) 3.7 (0-4) % Baso % (Auto) 0.5 (0-2) % Lymph # (Auto) 2.7 (1.2-4.9) X10*3/uL [place] # (Auto) 0.4 (0.1-1.2) X10*3/uL Eos # (Auto) 0.3 (0.0-0.4) X10*3/uL Baso # (Auto) 0.0 (0.0-0.2) X10*3/uL Abs Immat Gran (auto) 0.04 H (0.00-0.03) X10*3/uL Absolute Neuts (auto) 4.4 (2.0-8.3) X10*3/uL Absolute Nucleated RBC 0.000 (0.0-0.012) X10*3/uL Nucleated RBC % (auto) 0.0 (0.0-0.2) /100WBC Sodium 143 (135-145) mmol/L Potassium 4.0 (3.3-5.1) mmol/L Chloride 111 H (96-108) mmol/L Carbon Dioxide 24 (22-29) mmol/L Anion Gap 12 (12-20) BUN 8 L (9-16) mg/dL Creatinine 0.88 (0.5-1.4) mg/dL Estim Creat Clear Calc 112.8 Estimated GFR > 60 Random Glucose 111 (60-115) mg/dL Calcium 8.9 (8.4-10.2) mg/dL Total Bilirubin 0.2 (0.0-1.0) mg/dL AST 23 (5-31) U/L ALT 25 (0-31) U/L Alkaline Phosphatase 78 (39-117) U/L Total Protein 6.9 (6.5-8.0) g/dL Albumin 4.0 (3.5-5.0) g/dL Lipase 32 (8-78) U/L Urine Color Urine Appearance Urine pH (5.0-8.0) Ur Specific [place] (1.005-1.025) Urine Protein (NEG-TRACE) MG/DL Urine Glucose (UA) (NEG) MG/DL Urine Ketones (NEG) MG/DL Urine Blood (NEG) Urine Nitrite (NEG) Ur Leukocyte Esterase (NEG) Urine Test (NEGATIVE) 05/07/20 Range/Units 22:16 WBC (4.8-10.8) X10*3/uL RBC (4.20-5.50) X10*6/uL Hgb (12.0-16.0) g/dl Hct (37-47) % MCV (80-98) fL MCH (27.0-33.0) pg MCHC (31.0-35.0) g/dl RDW (11.0-16.0) % Plt Count (160-400) X10*3/uL MPV (9.4-12.3) fL Immature Gran % (Auto) (0.0-0.4) % Neut % (Auto) (45-73) % Lymph % (Auto) (20-40) % [place] % (Auto) (2-11) % Eos % (Auto) (0-4) % Baso % (Auto) (0-2) % Lymph # (Auto) (1.2-4.9) X10*3/uL [place] # (Auto) (0.1-1.2) X10*3/uL Eos # (Auto) (0.0-0.4) X10*3/uL Baso # (Auto) (0.0-0.2) X10*3/uL Abs Immat Gran (auto) (0.00-0.03) X10*3/uL Absolute Neuts (auto) (2.0-8.3) X10*3/uL Absolute Nucleated RBC (0.0-0.012) X10*3/uL Nucleated RBC % (auto) (0.0-0.2) /100WBC Sodium (135-145) mmol/L Potassium (3.3-5.1) mmol/L Chloride (96-108) mmol/L Carbon Dioxide (22-29) mmol/L Anion Gap (12-20) BUN (9-16) mg/dL Creatinine (0.5-1.4) mg/dL Estim Creat Clear Calc Estimated GFR Random Glucose (60-115) mg/dL Calcium (8.4-10.2) mg/dL Total Bilirubin (0.0-1.0) mg/dL AST (5-31) U/L ALT (0-31) U/L Alkaline Phosphatase (39-117) U/L Total Protein (6.5-8.0) g/dL Albumin (3.5-5.0) g/dL Lipase (8-78) U/L Urine Color YELLOW Urine Appearance HAZY Urine pH 7.0 (5.0-8.0) Ur Specific [place] 1.025 (1.005-1.025) Urine Protein NEG (NEG-TRACE) MG/DL Urine Glucose (UA) NEG (NEG) MG/DL Urine Ketones NEG (NEG) MG/DL Urine Blood NEG (NEG) Urine Nitrite NEG (NEG) Ur Leukocyte Esterase NEG (NEG) Urine Test NEGATIVE (NEGATIVE) Discharge Plan Discharge Clinical Impression: Back pain Qualifiers: Back pain location: low back pain Chronicity: unspecified Back pain laterality: unspecified Sciatica presence: without sciatica Qualified Code(s): M54.5 - Low back pain Gastritis Qualifiers: Gastritis type: unspecified gastritis Chronicity: unspecified Gastritis ble eding: without bleeding Qualified Code(s): K29.70 - Gastritis, unspecified, without bleeding Patient Disposition: Home, Self-Care Instructions: Back Pain (ED) Additional Instructions: 1. Tylenol 1000 mg, orally, every 6 hours as needed for pain control. Do not exceed 4000 mg within 24 hours. 2. Would avoid ibuprofen/Motrin/Aleve/naproxen as you may be experiencing discomfort from these medications irritating her stomach. 3. Recommend using [id number] and acids for additional symptom relief. 4. Follow-up with your primary care provider by calling the office in the morning. Do not hesitate to return to the emergency department should you experience any worsening of her symptoms. Prescriptions: No Action naproxen 500 mg tablet 500 mg PO BID PRN (Reason: pain) Qty: 14 RF: 0 prednisone 20 mg tablet 40 mg PO DAILY 5 Days Qty: 10 RF: 0 tramadol 50 mg tablet 50 mg PO Q8H PRN (Reason: pain) Qty: 10 RF: 0 ciprofloxacin HCl 500 mg tablet 500 mg PO Q12H 3 Days Qty: 6 RF: 0 naproxen 500 mg tablet 500 mg PO BID PRN (Reason: pain) Qty: 14 RF: 0 nitrofurantoin monohyd/m-cryst [Macrobid] 100 mg capsule 100 mg PO Q12H 7 Days Qty: 14 RF: 0 Referrals: Physician,Unknown [Primary Care Provider] - 2 days (Re-evaluation for suspected NSAID gastritis)
[2020-05-07 22:30] LABS: Glucose Urine UA NEG (NEG); Leukocyte Esterase Urine NEG (NEG); Nitrite Urine NEG (NEG); Specific Gravity - Urine 1.025 (1.005-1.025); Urine Blood NEG (NEG); Urine Ketones NEG (NEG); Urine Protein NEG (NEG-TRACE)
[2020-05-07 22:31] LABS: Appearance Urine HAZY; Color Urine YELLOW
[2020-05-07] MEDS: 0.9 % Sodium Chloride 1,000 ML 999 ML IV (22:47)
[2020-05-07 22:53] LABS: Lipase 32 U/L (8-78)
[2020-05-07 22:58] LABS: Alanine Aminotransferase 25 U/L (0-31); Alkaline Phosphatase 78 U/L (39-117); Anion Gap 12 (12-20); Aspartate Amino Transferase 23 U/L (5-31); Bilirubin Total 0.2 mg/dL (0.0-1.0); Blood Urea Nitrogen 8 mg/dL (9-16); Calcium 8.9 mg/dL (8.4-10.2); Carbon Dioxide 24 mmol/L (22-29); Chloride 111 mmol/L (96-108); Creatinine Clr Calc Pharmacy 112.8; Estimated Glomerular Filt Rate > 60; Glucose Random 111 mg/dL (60-115); Sodium 143 mmol/L (135-145); Total Protein 6.9 g/dL (6.5-8.0)
[2020-05-07 23:11] VITALS: BP 106/58; PULSE 90; RESP 16; O2SAT 96
[2020-05-07 23:33] LABS: UPreg QC Valid YES; Urine Pregnancy NEGATIVE (NEGATIVE)
[2020-05-07] MEDS: iohexoL 350 MG/ML 100 ML INFUS..BTL 85 ML IV (23:57)
[2020-05-08] MEDS: Magnesium Hydrox/Alum Hydrox 30 ML ORAL.SUSP PO (01:10)
[2020-05-08] MEDS: Lidocaine HCl Viscous 2 % 15 ML SOLUTION 10 ML MUCOUS MEM (01:10)
[2020-05-08 01:45] VITALS: BP 101/68; PULSE 86; RESP 18; O2SAT 96
== END 2020-05-08 01:48 | disposition home or self-care (01) ==
PROVIDERS: Emergency Provider Student in an Organized Health Care Education/Training Program
DX: K29.70 Gastritis, unspecified, without bleeding (principal); R10.9 Unspecified abdominal pain; M54.5 Low back pain; Z79.899 Other long term (current) drug therapy
CPT/HCPCS: 36415; 74177; 80053; 81003; 81025; 83690; 85025; 96360; 99284; Q9967

== ENCOUNTER 2020-05-24 18:44 | Emergency (ER) | payer OTHER, SELFPAY ==
--- NOTE | ~2020-05-24 | XR_ITS ---
EXAMINATION: XR KNEE, RIGHT CLINICAL INFORMATION: 35-year-old female with knee injury. COMPARISON: None TECHNIQUE: Four views of the right knee. FINDINGS: No fracture or dislocation. No suprapatellar joint effusion. Joint spaces are well-maintained. Small marginal osteophytes involving the medial joint compartment. XR/XR knee RT 2V IMPRESSION: Minimal degenerative changes.
[2020-05-24 18:59] VITALS: BP 151/94; PULSE 102; RESP 15; TEMP 36.1; O2SAT 95; BMI 46.0
--- NOTE | 2020-05-24 20:13 | ED_ITS ---
HPI - Extremity Injury (Lower) General Chief Complaint: Extremity Injury, Lower Stated Complaint: Knee pain Time Seen by Provider: 05/24/20 19:19 Source: patient Mode of arrival: ambulatory Limitations: no limitations History of Present Illness HPI Narrative: Patient presents to ED for right knee pain. Patient states needs evening she got up from her bed and stood up and then felt her right knee lock up and then heard a pop which caused her to fall to the ground. Patient denies hitting head or loss of consciousness. Patient has history of medial meniscus tear on the same knee and states pain is in the same area. Patient denies feeling dizzy head, chest pain, shortness of breath, headache or abdominal pain before falling to the ground. Related Data Previous Rx's Medication Instructions Recorded naproxen 500 mg PO BID PRN #14 tab 02/08/20 prednisone 40 mg PO DAILY 5 Days #10 tab 02/08/20 tramadol 50 mg PO Q8H PRN #10 tab 03/21/20 nitrofurantoin monohyd/m-cryst 100 mg PO Q12H 7 Days #14 cap 04/26/20 [Macrobid] ciprofloxacin HCl 500 mg PO Q12H 3 Days #6 tab 05/01/20 naproxen 500 mg PO BID PRN #14 tab 05/01/20 tramadol 50 mg PO TID PRN #9 tab 05/24/20 Allergies Allergy/AdvReac Type Severity Reaction Status Date / Time No Known Allergies Allergy Verified 02/08/20 09:51 [No Known Allergies*] Review of Systems Review of Systems: Yes all other systems are reviewed and are negative Constitutional: Constitutional: Reports as per HPI and Reports no additional constitutional complaints Eyes: Eyes: Reports as per HPI and Reports no additional eye complaints ENT: Reports system reviewed and no additional complaints, except as documented and Reports as per HPI Cardiovascular: Cardiovascular: Reports as per HPI and Reports no additional cardiovascular complaints Respiratory: Respiratory: Reports as per HPI and Reports no additional respiratory complaints Gastrointestinal: Gastrointestinal: Reports as per HPI Genitourinary: Genitourinary: Reports no additional female genitourinary complaints and Reports as per HPI Musculoskeletal: Musculoskeletal: Reports no additional musculoskeletal complaints, Reports as per HPI and Reports arthralgias Comments: Right knee pain Neurologic: Reports system reviewed and no additional complaints, except as documented and Reports as per HPI Psychiatric: Psychiatric: Reports no additional psychiatric complaints and Reports as per HPI [facility] Past Medical History Medical History Anxiety Arthritis Asthma Depression PTSD (post-traumatic stress disorder) Surgical History H/O knee surgery H/O tubal ligation Hx of cholecystectomy Hx of shoulder surgery S/P foot surgery Social History Social History Alcohol intake: never Smoking Status: Never smoker Smoked in Last 30 Days: No Use of substances other than those prescribed or required for medical reasons: No Any prior treatment program specific to substance use: No Advance Directives: No Advance Directives Information Provided: No Physical Exam Vital Signs: Vital Signs: Last Vital Signs Temp 97 F 05/24/20 18:59 Pulse 102 H 05/24/20 18:59 Resp 15 05/24/20 18:59 BP 151/94 H 05/24/20 18:59 Pulse Ox 95 05/24/20 18:59 Body Mass Index 46.0 Const: General: cooperative, healthy appearing, comfortable, no acute distress, well developed, alert, awake and Physically active Orientation/consciousness: patient oriented x3 HENMT: Head: Yes normal to inspection, Yes No palpable skull fracture present, Yes normocephalic, Yes atraumatic, No abrasion, No Acrocyanosis present, No Marcos's sign, No contusion, No cranial bruits, No hematoma, No laceration, No occipital foramen tenderness, No palpable skull fracture, No raccoon eyes, No scalp lesion, No scalp tenderness, No Temporal artery tenderness present and No periorbital ecchymosis Eyes: General: appearance normal, both eyes and all related structures Neck: Neck: Yes normal visual inspection, Yes full ROM, Yes no lymphadenopathy, Yes no meningeal signs, Yes trachea midline, Yes supple and No tender Chest: Chest palpation & inspection: normal inspection of the chest and normal palpation of entire chest wall Resp: Effort & Inspection: normal respiratory effort and able to speak in complete sentences Auscultation: clear to auscultation bilaterally Cardio: Jugular venous distension: no JVD Heart sounds: S1 normal heart sound present and S2 normal heart sound present GI: Inspection: Yes normal to inspection Palpation (GI): Soft to palpation, not firm, nontender, no guarding and not rigid : General: No CVA tenderness and Yes no CVA tenderness Back/Spine/Pelvis: Back: no CVA tenderness, No CVA tenderness and No back tenderness Skin: General skin exam: no rashes or lesions noted and elasticity normal Neuro: General: patient oriented x3, no meningeal signs and CN's II-XI intact bilaterally Cranial nerves: Yes CN's II-XII intact bilaterally Extrem: Other: Right lower extremity: Positive for tenderness on medial aspect of right knee. Negative for any bone tenderness. Negative for deformity, redness. Pulses of foot and intact. Negative for leg deformity. Neuro exam is intact. Left lower extremity normal and motor/neuro/vascular exam intact Psych: Appearance: grossly normal, well kempt and not disheveled Course Course Course Narrative: Patient sent for right knee x-ray Reevaluation(s) Reevaluation #1: Right knee x-ray shows arthritis negative for fracture or dislocation. Patient informed that she should call her [facility] for early appointment to get an MRI to make sure there is not another meniscus tear. Patient placed in knee immobilizer, and crutches. Time: 20:22 MDM - Extremity Injury (Lower) MDM Narrative Medical decision making narrative: Right knee sprain Discharge Plan Discharge Clinical Impression: Knee sprain Patient Disposition: Home, Self-Care Instructions: Knee Sprain (ED) Additional Instructions: Return to the ED immediately for swelling of knee, redness, paralysis of lower extremity, numbness,/tingling, fever, chills, or any other concerning symptoms. Please call your doctor at [facility] for an early appointment to get MRI on right knee to rule out a new meniscus tear. Prescriptions: New tramadol 50 mg tablet 50 mg PO TID PRN (Reason: pain) Qty: 9 RF: 0 No Action naproxen 500 mg tablet 500 mg PO BID PRN (Reason: pain) Qty: 14 RF: 0 prednisone 20 mg tablet 40 mg PO DAILY 5 Days Qty: 10 RF: 0 tramadol 50 mg tablet 50 mg PO Q8H PRN (Reason: pain) Qty: 10 RF: 0 ciprofloxacin HCl 500 mg tablet 500 mg PO Q12H 3 Days Qty: 6 RF: 0 naproxen 500 mg tablet 500 mg PO BID PRN (Reason: pain) Qty: 14 RF: 0 nitrofurantoin monohyd/m-cryst [Macrobid] 100 mg capsule 100 mg PO Q12H 7 Days Qty: 14 RF: 0 Stand Alone Forms: Work/School Release Interventions: ED Discharge Assessment Last Done: 05/24/20 21:11 Discharge Date/Time: 05/24/20 21:14 Print Language: Congolese
[2020-05-24] MEDS: Ketorolac Tromethamine 30 MG/ML VIAL IM (20:39)
== END 2020-05-24 21:14 | disposition home or self-care (01) ==
PROVIDERS: PCP Nurse Practitioner Family
DX: S83.91XA Sprain of unspecified site of right knee, initial encounter (principal); M25.561 Pain in right knee; W01.0XXA Fall on same level from slipping, tripping and stumbling without subsequent striking against object, initial encounter; Y93.9 Activity, unspecified; Y92.003 Bedroom of unspecified non-institutional (private) residence as the place of occurrence of the external cause; Y99.9 Unspecified external cause status; Z79.899 Other long term (current) drug therapy
CPT/HCPCS: 73560; 96372; 99284; J1885

== ENCOUNTER 2020-05-28 20:40 | Emergency (ER) | payer OTHER, SELFPAY ==
[2020-05-28 21:22] VITALS: BP 104/55; PULSE 87; RESP 16; TEMP 36.8; O2SAT 99; BMI 46.0
--- NOTE | 2020-05-28 21:30 | ED_ITS ---
HPI - Extremity Injury (Lower) General Chief Complaint: Extremity Injury, Lower Stated Complaint: KNEE PAIN Time Seen by Provider: 05/28/20 21:29 Related Data Previous Rx's Medication Instructions Recorded naproxen 500 mg PO BID PRN #14 tab 02/08/20 prednisone 40 mg PO DAILY 5 Days #10 tab 02/08/20 tramadol 50 mg PO Q8H PRN #10 tab 03/21/20 nitrofurantoin monohyd/m-cryst 100 mg PO Q12H 7 Days #14 cap 04/26/20 [Macrobid] ciprofloxacin HCl 500 mg PO Q12H 3 Days #6 tab 05/01/20 naproxen 500 mg PO BID PRN #14 tab 05/01/20 tramadol 50 mg PO TID PRN #9 tab 05/24/20 cyclobenzaprine 10 mg PO TID PRN #20 tab 05/28/20 nitrofurantoin monohyd/m-cryst 100 mg PO Q12H 7 Days #14 cap 07/04/20 [Macrobid] phenazopyridine [Pyridium] 200 mg PO TID PRN #6 tab 07/04/20 Allergies Allergy/AdvReac Type Severity Reaction Status Date / Time No Known Allergies Allergy Verified 07/04/20 14:36 [No Known Allergies*] [facility] Past Medical History Medical History (Updated 07/05/20 @ 00:01 by Greta Campuzano) Anxiety Arthritis Asthma Chronic cystitis Depression PTSD (post-traumatic stress disorder) Surgical History H/O knee surgery H/O tubal ligation Hx of cholecystectomy Hx of shoulder surgery S/P foot surgery Social History Social History Alcohol intake: never Use of substances other than those prescribed or required for medical reasons: No Advance Directives: No Advance Directives Information Provided: Yes Patient : No Physical Exam Vital Signs: Vital Signs: Last Vital Signs Temp 98.3 F 05/28/20 21:22 Pulse 87 05/28/20 21:22 Resp 16 05/28/20 21:22 BP 104/55 L 05/28/20 21:22 Pulse Ox 99 05/28/20 21:22 Body Mass Index 46.0 Discharge Plan Discharge Clinical Impression: Knee meniscus pain Patient Disposition: Home, Self-Care Instructions: Meniscus Tear (ED) Additional Instructions: You were evaluated for knee pain. You were seen here 3 days ago for the same concern. You must wear your knee immobilizer to prevent further injury. Please call Orthopedics for follow-up. We cannot order an MRI for you, this is a test that needs to be ordered as an outpatient. Again, please wear your knee immobilizer to prevent further injury. Thank you for choosing this emergency department for evaluation. Please follow-up with primary care physician as needed. Return to the emergency department for any new, concerning, or worsening symptoms. Prescriptions: New cyclobenzaprine 10 mg tablet 10 mg PO TID PRN (Reason: muscle spasm) Qty: 20 RF: 0 No Action naproxen 500 mg tablet 500 mg PO BID PRN (Reason: pain) Qty: 14 RF: 0 prednisone 20 mg tablet 40 mg PO DAILY 5 Days Qty: 10 RF: 0 tramadol 50 mg tablet 50 mg PO Q8H PRN (Reason: pain) Qty: 10 RF: 0 ciprofloxacin HCl 500 mg tablet 500 mg PO Q12H 3 Days Qty: 6 RF: 0 naproxen 500 mg tablet 500 mg PO BID PRN (Reason: pain) Qty: 14 RF: 0 nitrofurantoin monohyd/m-cryst [Macrobid] 100 mg capsule 100 mg PO Q12H 7 Days Qty: 14 RF: 0 phenazopyridine [Pyridium] 200 mg tablet 200 mg PO TID PRN (Reason: pain) Qty: 6 RF: 0 nitrofurantoin monohyd/m-cryst [Macrobid] 100 mg capsule 100 mg PO Q12H 7 Days Qty: 14 RF: 0 tramadol 50 mg tablet 50 mg PO TID PRN (Reason: pain) Qty: 9 RF: 0 Interventions: ED Discharge Assessment Last Done: 05/28/20 22:22 Discharge Date/Time: 05/28/20 22:25
--- NOTE | 2020-05-28 21:35 | PC.NURSE ---
COLD PACK PLACED TO RIGHT KNEE
[2020-05-28] MEDS: Cyclobenzaprine HCl 10 MG TABLET PO (21:57)
== END 2020-05-28 22:25 | disposition home or self-care (01) ==
PROVIDERS: Emergency Provider Internal Medicine; PCP Nurse Practitioner Family
DX: M25.561 Pain in right knee (principal)
CPT/HCPCS: 99283; 99284

== ENCOUNTER 2020-06-24 20:16 | Emergency (ER) | payer OTHER, SELFPAY | END 2020-06-24 21:21 | disposition left against medical advice (07) | LOC: HO.ED 21:20 | PROVIDERS: Emergency Provider Emergency Medicine Emergency Medical Services; PCP Nurse Practitioner Family | DX: R10.9 Unspecified abdominal pain (principal) ==

== ENCOUNTER 2020-07-04 14:03 | Emergency (ER) | payer OTHER, SELFPAY ==
--- NOTE | ~2020-07-04 | US_ITS ---
EXAMINATION: RENAL ULTRASOUND. CLINICAL INFORMATION: Severe left flank pain and hematuria. COMPARISON: CT abdomen and pelvis with contrast 05/07/2020. TECHNIQUE: Retroperitoneal ultrasound imaging was performed. FINDINGS: The right kidney is normal size measuring 10.8 cm in length, 5.7 cm in AP and 5.1 cm in transverse dimension. There is a small cortical defect likely a scar along the midpole. No echogenic calculi, cyst, solid mass or hydronephrosis. The left kidney is normal size measuring 11.2 cm in length, 5.7 cm in AP and 5.1 cm in transverse dimension. There is a small anechoic cyst upper pole measuring 1.6 x 1.1 x 1.2 cm. No echogenic stones or hydronephrosis seen. US/US renal LT IMPRESSION: Small cyst upper pole left kidney. There are no echogenic stones or hydronephrosis in either kidney. Likely small scar along the midpole lateral cortex right kidney.
[2020-07-04 14:36] VITALS: BP 116/75; PULSE 84; RESP 16; TEMP 37; O2SAT 100; BMI 47.8
[2020-07-04 14:57] LABS: Glucose Urine UA NEG (NEG); Leukocyte Esterase Urine 1+ (NEG); Nitrite Urine NEG (NEG); Specific Gravity - Urine 1.025 (1.005-1.025); UACC Culture Trigger YES; Urine Blood 3+ (NEG); Urine Ketones NEG (NEG); Urine Protein TRACE MG/DL (NEG-TRACE)
[2020-07-04 15:02] LABS: Appearance Urine CLOUDY; Color Urine YELLOW
[2020-07-04 15:05] LABS: Mucus Urine 3+ /LPF; RBC Urine TNTC /HPF (0); Squamous Epithelial Cell Urine 3+ /LPF
[2020-07-04 15:40] LABS: MANUAL DIFF FLAG NO
[2020-07-04] MEDS: Ketorolac Tromethamine 30 MG/ML VIAL IVPUSH (15:40)
[2020-07-04] MEDS: ondansetron HCL 4 MG/2 ML VIAL IVPUSH (15:40)
[2020-07-04] MEDS: 0.9 % Sodium Chloride 1,000 ML 999 ML IV (15:41)
[2020-07-04 15:42] LABS: Basophils Percent Auto 0.4 % (0-2); Eosinophils Absolute Auto 0.1 X10*3/uL (0.0-0.4); Eosinophils Percent Auto 1.3 % (0-4); Hematocrit 41.7 % (37-47); Hemoglobin 13.1 g/dl (12.0-16.0); Imm Gran Abs Auto 0.07 X10*3/uL (0.00-0.03); Imm Gran Pct Auto 0.7 % (0.0-0.4); Lymphocytes Absolute Auto 1.5 X10*3/uL (1.2-4.9); Lymphocytes Percent Auto 15.2 % (20-40); Mean Corpuscular HGB Conc 31.4 g/dl (31.0-35.0); Mean Corpuscular Hemoglobin 27.3 pg (27.0-33.0); Mean Corpuscular Volume 87.1 fL (80-98); Mean Platelet Volume 9.4 fL (9.4-12.3); Monocytes Absolute Auto 0.4 X10*3/uL (0.1-1.2); Monocytes Percent Auto 4.2 % (2-11); Neutrophils Absolute Auto 7.9 X10*3/uL (2.0-8.3); Neutrophils Percent Auto 78.2 % (45-73); Platelet Count 263 X10*3/uL (160-400); Red Blood Count 4.79 X10*6/uL (4.20-5.50); Red Cell Distribution Width 13.5 % (11.0-16.0); White Blood Count 10.1 X10*3/uL (4.8-10.8)
--- NOTE | 2020-07-04 15:44 | PC.NURSE ---
patient a&ox3, c/o 12/04 lt flank pain pt states it feels as if somebody is stabbing her and the pain radiates down towards her groin, iv inserted, labs drawn, pt medicated for pain and nausea, urine was obtained in triage, ss, will continue to monitor
[2020-07-04 15:45] LABS: UPreg QC Valid YES; Urine Pregnancy NEGATIVE (NEGATIVE)
[2020-07-04 16:03] LABS: Alanine Aminotransferase 29 U/L (0-31); Albumin Level 4.3 g/dL (3.5-5.0); Alkaline Phosphatase 93 U/L (39-117); Anion Gap 15 (12-20); Aspartate Amino Transferase 25 U/L (5-31); Bilirubin Total 0.3 mg/dL (0.0-1.0); Blood Urea Nitrogen 14 mg/dL (9-16); Calcium 9.2 mg/dL (8.4-10.2); Carbon Dioxide 26 mmol/L (22-29); Chloride 106 mmol/L (96-108); Creatinine Clr Calc Pharmacy 98.6; Estimated Glomerular Filt Rate > 60; Glucose Random 121 mg/dL (60-115); Potassium 4.6 mmol/L (3.3-5.1); Sodium 142 mmol/L (135-145); Total Protein 7.2 g/dL (6.5-8.0)
[2020-07-04] MEDS: Morphine Sulfate 4 MG/ML CARTRIDGE IVPUSH (16:27)
[2020-07-04 16:28] VITALS: BP 125/82; PULSE 88; RESP 20; O2SAT 100
--- NOTE | 2020-07-04 16:30 | ED_ITS ---
HPI - Abdominal Pain General Chief Complaint: Abdominal Pain <KELLY Palmer - Last Filed: 07/04/20 17:13> Stated Complaint: flank pain - nausea <KELLY Palmer - Last Filed: 07/04/20 17:13> Time Seen by Provider: 07/04/20 15:31 <KELLY Palmer - Last Filed: 07/04/20 17:13> Source: patient <KELLY Palmer - Last Filed: 07/04/20 17:13> Mode of arrival: ambulatory <KELLY Palmer - Last Filed: 07/04/20 17:13> Limitations: no limitations <KELLY Palmer Last Filed: 07/04/20 17:13> History of Present Illness HPI narrative: 35 y/o female with history of morbid obesity, chronic low back pain, migraines, chronic cystitis, asthma, arthritis who presents to the ED c/o severe sharp left sided flank pain that started yesterday and escalated today. She developed severe nausea and vomited 6x this afternoon before coming to the ER. She states the pain is in her middle back and radiates to her left lower abdomen and left pelvic area. She reports chronic dysuria which is currently unchanged from her baseline. She denies history of kidney stones. No fever or chills at home. No hematuria or urinary frequency. Not sexually active, no vaginal discharge. <KELLY Palmer - Last Filed: 07/04/20 17:13> MD elicited complaint: flank pain <KELLY Palmer - Last Filed: 07/04/20 17:13> Pertinent past history: none <KELLY Palmer - Last Filed: 07/04/20 17:13> Onset (ago): day(s) (1) <KELLY Palmer - Last Filed: 07/04/20 17:13> Pain Consistency: constant <KELLY Palmer Last Filed: 07/04/20 17:13> Location: L flank <KELLY Palmer Last Filed: 07/04/20 17:13> Severity: severe <KELLY Palmer Last Filed: 07/04/20 17:13> Quality: stabbing <KELLY Palmer - Last Filed: 07/04/20 17:13> Radiation: LLQ <KELLY Palmer Last Filed: 07/04/20 17:13> Exacerbating factors: nothing <KELLY Palmer Last Filed: 07/04/20 17:13> Relieving factors: nothing <KELLY Palmer - Last Filed: 07/04/20 17:13> Context: history of similar episodes <KELLY Palmer Last Filed: 07/04/20 17:13> Associated symptoms: nausea, vomiting and dysuria <KELLY Palmer Last Filed: 07/04/20 17:13> Related Data Home Medications: Previous Rx's Medication Instructions Recorded naproxen 500 mg PO BID PRN #14 tab 02/08/20 prednisone 40 mg PO DAILY 5 Days #10 tab 02/08/20 tramadol 50 mg PO Q8H PRN #10 tab 03/21/20 nitrofurantoin monohyd/m-cryst 100 mg PO Q12H 7 Days #14 cap 04/26/20 [Macrobid] ciprofloxacin HCl 500 mg PO Q12H 3 Days #6 tab 05/01/20 naproxen 500 mg PO BID PRN #14 tab 05/01/20 tramadol 50 mg PO TID PRN #9 tab 05/24/20 cyclobenzaprine 10 mg PO TID PRN #20 tab 05/28/20 nitrofurantoin monohyd/m-cryst 100 mg PO Q12H 7 Days #14 cap 07/04/20 [Macrobid] phenazopyridine [Pyridium] 200 mg PO TID PRN #6 tab 07/04/20 <KELLY Palmer - Last Filed: 07/04/20 17:13> Allergies/Adverse Reactions: Allergies Allergy/AdvReac Type Severity Reaction Status Date / Time No Known Allergies Allergy Verified 07/04/20 14:36 [No Known Allergies*] <KELLY Palmer Last Filed: 07/04/20 17:13> Review of Systems Review of Systems Constitutional: No Fever, No Chills ENT/Mouth: No sore throat, No Rhinorrhea, No Swallowing Difficulty Eyes: No Eye Pain, No Swelling, No Redness Cardiovascular: No Chest Pain, No SOB, No Orthopnea, No Edema Respiratory: No Cough, No Sputum, No Wheezing, No dyspnea Gastrointestinal: + Nausea, + Vomiting, No Diarrhea, + abdominal Pain, No Hematochezia, No Melena Genitourinary: + Dysuria, No Urinary Frequency, No Hematuria Musculoskeletal: No joint pain, No Myalgias Skin: No Skin Lesions, No rash Neuro: No Weakness, No Numbness, No Dizziness, + Headache Psych: + Anxiety/Panic, No Depression Heme/Lymph: No Bruising, No Lymphadenopathy Endocrine: No Polyuria, No Polydipsia <KELLY Palmer - Last Filed: 07/04/20 17:13> Physical Exam Vital Signs: Vital Signs: Last Vital Signs Temp 98.2 F 07/04/20 18:04 Pulse 83 07/04/20 18:04 Resp 18 07/04/20 18:04 BP 126/80 07/04/20 18:04 Pulse Ox 99 07/04/20 18:04 Body Mass Index 47.8 Appearance: Alert. Oriented X3. Appears uncomfortable. Eyes: Pupils equal, round and reactive to light. ENT: Pharynx normal. Neck: Normal inspection. Neck supple. CVS: Normal heart rate and rhythm. Pulses normal. Respiratory: No respiratory distress. Breath sounds normal. Abdomen: Obsese, Soft with LLQ pain to deep palpation, normal +BS x4, +CVA tenderness on the left. Pelvic exam deferred. Skin: Skin warm and dry. Normal skin color. Normal skin turgor. No rashes. Extremities: No lower extremity edema. Neuro: Oriented X 3. Non-focal, moves all 4 extremities, speaks in clear sentences. <KELLY Palmer - Last Filed: 07/04/20 17:13> Vital Signs: Last Vital Signs Temp 98.2 F 07/04/20 18:04 Pulse 83 07/04/20 18:04 Resp 18 07/04/20 18:04 BP 126/80 07/04/20 18:04 Pulse Ox 99 07/04/20 18:04 Body Mass Index 47.8 <Sheyla Willett NP - Last Filed: 07/04/20 18:30> Course Course Course Narrative: 35 y/o female presenting with acute onset of severe left sided flank pain that radiates to her LLQ and left pelvic area as well as persistent vomiting. Clinical picture is consistent with kidney stones. Her UA has blood. She is not due for her menses for another 2+ weeks. She denies vaginal bleeding. She recently had 2 CT scans of her abdomen/pelvis in April for flank pain which were both negative. Will start with renal U/S to assess for hydronephrosis and hold off on further radiation for now. She is afebrile and hemodynamically stable. Will treat with Zofran and Toradol and reassess. <KELLY Palmer - Last Filed: 07/04/20 17:13> Ultrasound negative for renal stone, pyelo, hydro. Urine is suspicious of UTI. Will treat for UTI with Macrobid and Pyridium. Discussion with patient regarding plan of care and discharge home. Patient verbalized understanding of and agrees to plan. <Sheyla Willett NP - Last Filed: 07/04/20 18:30> Reevaluation(s) Reevaluation #1: No leukocytosis on blood work. Normal renal function. She continues to report flank pain after Toradol, will try Morphine for pain. Renal U/S pending. <KELLY Palmer - Last Filed: 07/04/20 17:13> MDM - Abdominal Pain Medical Records Attestation: I reviewed the patient's medical records. <Sheyla Willett NP - Last Filed: 07/04/20 18:30> Lab Data Attestation: I reviewed the patient's lab results. <Sheyla Willett NP - Last Filed: 07/04/20 18:30> Result diagrams: : 07/04/20 15:37 07/04/20 15:37 <KELLY Palmer - Last Filed: 07/04/20 17:13> Labs: Lab Results 07/04/20 07/04/20 07/04/20 Range/Units 14:45 14:45 15:37 WBC 10.1 (4.8-10.8) X10*3/uL RBC 4.79 (4.20-5.50) X10*6/uL Hgb 13.1 (12.0-16.0) g/dl Hct 41.7 (37-47) % MCV 87.1 (80-98) fL MCH 27.3 (27.0-33.0) pg MCHC 31.4 (31.0-35.0) g/dl RDW 13.5 (11.0-16.0) % Plt Count 263 (160-400) X10*3/uL MPV 9.4 (9.4-12.3) fL Immature Gran % (Auto) 0.7 H (0.0-0.4) % Neut % (Auto) 78.2 H (45-73) % Lymph % (Auto) 15.2 L (20-40) % Sunflower % (Auto) 4.2 (2-11) % Eos % (Auto) 1.3 (0-4) % Baso % (Auto) 0.4 (0-2) % Lymph # (Auto) 1.5 (1.2-4.9) X10*3/uL Sunflower # (Auto) 0.4 (0.1-1.2) X10*3/uL Eos # (Auto) 0.1 (0.0-0.4) X10*3/uL Baso # (Auto) 0.0 (0.0-0.2) X10*3/uL Abs Immat Gran (auto) 0.07 H (0.00-0.03) X10*3/uL Absolute Neuts (auto) 7.9 (2.0-8.3) X10*3/uL Absolute Nucleated RBC 0.000 (0.0-0.012) X10*3/uL Nucleated RBC % (auto) 0.0 (0.0-0.2) /100WBC Hold Blue Top Sodium (135-145) mmol/L Potassium (3.3-5.1) mmol/L Chloride (96-108) mmol/L Carbon Dioxide (22-29) mmol/L Anion Gap (12-20) BUN (9-16) mg/dL Creatinine (0.5-1.4) mg/dL Estim Creat Clear Calc Estimated GFR Random Glucose (60-115) mg/dL Calcium (8.4-10.2) mg/dL Total Bilirubin (0.0-1.0) mg/dL AST (5-31) U/L ALT (0-31) U/L Alkaline Phosphatase (39-117) U/L Total Protein (6.5-8.0) g/dL Albumin (3.5-5.0) g/dL Urine Color YELLOW Urine Appearance CLOUDY Urine pH 7.0 (5.0-8.0) Ur Specific [place] 1.025 (1.005-1.025) Urine Protein TRACE (NEG-TRACE) MG/DL Urine Glucose (UA) NEG (NEG) MG/DL Urine Ketones NEG (NEG) MG/DL Urine Blood 3+ H (NEG) Urine Nitrite NEG (NEG) Ur Leukocyte Esterase 1+ H (NEG) Urine RBC TNTC H (0) /HPF Urine WBC 15-29 H (0-4) /HPF Ur Squamous Epith Cells 3+ /LPF Urine Bacteria NONE /LPF Urine Mucus 3+ /LPF Urine Test NEGATIVE (NEGATIVE) 07/04/20 07/04/20 Range/Units 15:37 15:37 WBC (4.8-10.8) X10*3/uL RBC (4.20-5.50) X10*6/uL Hgb (12.0-16.0) g/dl Hct (37-47) % MCV (80-98) fL MCH (27.0-33.0) pg MCHC (31.0-35.0) g/dl RDW (11.0-16.0) % Plt Count (160-400) X10*3/uL MPV (9.4-12.3) fL Immature Gran % (Auto) (0.0-0.4) % Neut % (Auto) (45-73) % Lymph % (Auto) (20-40) % Sunflower % (Auto) (2-11) % Eos % (Auto) (0-4) % Baso % (Auto) (0-2) % Lymph # (Auto) (1.2-4.9) X10*3/uL Sunflower # (Auto) (0.1-1.2) X10*3/uL Eos # (Auto) (0.0-0.4) X10*3/uL Baso # (Auto) (0.0-0.2) X10*3/uL Abs Immat Gran (auto) (0.00-0.03) X10*3/uL Absolute Neuts (auto) (2.0-8.3) X10*3/uL Absolute Nucleated RBC (0.0-0.012) X10*3/uL Nucleated RBC % (auto) (0.0-0.2) /100WBC Hold Blue Top SEE NOTE Sodium 142 (135-145) mmol/L Potassium 4.6 (3.3-5.1) mmol/L Chloride 106 (96-108) mmol/L Carbon Dioxide 26 (22-29) mmol/L Anion Gap 15 (12-20) BUN 14 D (9-16) mg/dL Creatinine 1.03 (0.5-1.4) mg/dL Estim Creat Clear Calc 98.6 Estimated GFR > 60 Random Glucose 121 H (60-115) mg/dL Calcium 9.2 (8.4-10.2) mg/dL Total Bilirubin 0.3 (0.0-1.0) mg/dL AST 25 (5-31) U/L ALT 29 (0-31) U/L Alkaline Phosphatase 93 (39-117) U/L Total Protein 7.2 (6.5-8.0) g/dL Albumin 4.3 (3.5-5.0) g/dL Urine Color Urine Appearance Urine pH (5.0-8.0) Ur Specific [place] (1.005-1.025) Urine Protein (NEG-TRACE) MG/DL Urine Glucose (UA) (NEG) MG/DL Urine Ketones (NEG) MG/DL Urine Blood (NEG) Urine Nitrite (NEG) Ur Leukocyte Esterase (NEG) Urine RBC (0) /HPF Urine WBC (0-4) /HPF Ur Squamous Epith Cells /LPF Urine Bacteria /LPF Urine Mucus /LPF Urine Test (NEGATIVE) <KELLY Palmer - Last Filed: 07/04/20 17:13> Lab Results 07/04/20 07/04/20 07/04/20 Range/Units 14:45 14:45 15:37 WBC 10.1 (4.8-10.8) X10*3/uL RBC 4.79 (4.20-5.50) X10*6/uL Hgb 13.1 (12.0-16.0) g/dl Hct 41.7 (37-47) % MCV 87.1 (80-98) fL MCH 27.3 (27.0-33.0) pg MCHC 31.4 (31.0-35.0) g/dl RDW 13.5 (11.0-16.0) % Plt Count 263 (160-400) X10*3/uL MPV 9.4 (9.4-12.3) fL Immature Gran % (Auto) 0.7 H (0.0-0.4) % Neut % (Auto) 78.2 H (45-73) % Lymph % (Auto) 15.2 L (20-40) % Sunflower % (Auto) 4.2 (2-11) % Eos % (Auto) 1.3 (0-4) % Baso % (Auto) 0.4 (0-2) % Lymph # (Auto) 1.5 (1.2-4.9) X10*3/uL Sunflower # (Auto) 0.4 (0.1-1.2) X10*3/uL Eos # (Auto) 0.1 (0.0-0.4) X10*3/uL Baso # (Auto) 0.0 (0.0-0.2) X10*3/uL Abs Immat Gran (auto) 0.07 H (0.00-0.03) X10*3/uL Absolute Neuts (auto) 7.9 (2.0-8.3) X10*3/uL Absolute Nucleated RBC 0.000 (0.0-0.012) X10*3/uL Nucleated RBC % (auto) 0.0 (0.0-0.2) /100WBC Hold Blue Top Sodium (135-145) mmol/L Potassium (3.3-5.1) mmol/L Chloride (96-108) mmol/L Carbon Dioxide (22-29) mmol/L Anion Gap (12-20) BUN (9-16) mg/dL Creatinine (0.5-1.4) mg/dL Estim Creat Clear Calc Estimated GFR Random Glucose (60-115) mg/dL Calcium (8.4-10.2) mg/dL Total Bilirubin (0.0-1.0) mg/dL AST (5-31) U/L ALT (0-31) U/L Alkaline Phosphatase (39-117) U/L Total Protein (6.5-8.0) g/dL Albumin (3.5-5.0) g/dL Urine Color YELLOW Urine Appearance CLOUDY Urine pH 7.0 (5.0-8.0) Ur Specific [place] 1.025 (1.005-1.025) Urine Protein TRACE (NEG-TRACE) MG/DL Urine Glucose (UA) NEG (NEG) MG/DL Urine Ketones NEG (NEG) MG/DL Urine Blood 3+ H (NEG) Urine Nitrite NEG (NEG) Ur Leukocyte Esterase 1+ H (NEG) Urine RBC TNTC H (0) /HPF Urine WBC 15-29 H (0-4) /HPF Ur Squamous Epith Cells 3+ /LPF Urine Bacteria NONE /LPF Urine Mucus 3+ /LPF Urine Test NEGATIVE (NEGATIVE) 07/04/20 07/04/20 Range/Units 15:37 15:37 WBC (4.8-10.8) X10*3/uL RBC (4.20-5.50) X10*6/uL Hgb (12.0-16.0) g/dl Hct (37-47) % MCV (80-98) fL MCH (27.0-33.0) pg MCHC (31.0-35.0) g/dl RDW (11.0-16.0) % Plt Count (160-400) X10*3/uL MPV (9.4-12.3) fL Immature Gran % (Auto) (0.0-0.4) % Neut % (Auto) (45-73) % Lymph % (Auto) (20-40) % Sunflower % (Auto) (2-11) % Eos % (Auto) (0-4) % Baso % (Auto) (0-2) % Lymph # (Auto) (1.2-4.9) X10*3/uL Sunflower # (Auto) (0.1-1.2) X10*3/uL Eos # (Auto) (0.0-0.4) X10*3/uL Baso # (Auto) (0.0-0.2) X10*3/uL Abs Immat Gran (auto) (0.00-0.03) X10*3/uL Absolute Neuts (auto) (2.0-8.3) X10*3/uL Absolute Nucleated RBC (0.0-0.012) X10*3/uL Nucleated RBC % (auto) (0.0-0.2) /100WBC Hold Blue Top SEE NOTE Sodium 142 (135-145) mmol/L Potassium 4.6 (3.3-5.1) mmol/L Chloride 106 (96-108) mmol/L Carbon Dioxide 26 (22-29) mmol/L Anion Gap 15 (12-20) BUN 14 D (9-16) mg/dL Creatinine 1.03 (0.5-1.4) mg/dL Estim Creat Clear Calc 98.6 Estimated GFR > 60 Random Glucose 121 H (60-115) mg/dL Calcium 9.2 (8.4-10.2) mg/dL Total Bilirubin 0.3 (0.0-1.0) mg/dL AST 25 (5-31) U/L ALT 29 (0-31) U/L Alkaline Phosphatase 93 (39-117) U/L Total Protein 7.2 (6.5-8.0) g/dL Albumin 4.3 (3.5-5.0) g/dL Urine Color Urine Appearance Urine pH (5.0-8.0) Ur Specific [place] (1.005-1.025) Urine Protein (NEG-TRACE) MG/DL Urine Glucose (UA) (NEG) MG/DL Urine Ketones (NEG) MG/DL Urine Blood (NEG) Urine Nitrite (NEG) Ur Leukocyte Esterase (NEG) Urine RBC (0) /HPF Urine WBC (0-4) /HPF Ur Squamous Epith Cells /LPF Urine Bacteria /LPF Urine Mucus /LPF Urine Test (NEGATIVE) <Sheyla Willett NP - Last Filed: 07/04/20 18:30> Imaging Data Renal ultrasound: Attestation: I personally reviewed and interpreted this imaging study as follows: <Sheyla Willett NP - Last Filed: 07/04/20 18:30> Radiologist's impression: EXAMINATION: RENAL ULTRASOUND. CLINICAL INFORMATION: Severe left flank pain and hematuria. COMPARISON: CT abdomen and pelvis with contrast 05/07/2020. TECHNIQUE: Retroperitoneal ultrasound imaging was performed. FINDINGS: The right kidney is normal size measuring 10.8 cm in length, 5.7 cm in AP and 5.1 cm in transverse dimension. There is a small cortical defect likely a scar along the midpole. No echogenic calculi, cyst, solid mass or hydronephrosis. The left kidney is normal size measuring 11.2 cm in length, 5.7 cm in AP and 5.1 cm in transverse dimension. There is a small anechoic cyst upper pole measuring 1.6 x 1.1 x 1.2 cm. No echogenic stones or hydronephrosis seen. US/US renal LT IMPRESSION: Small cyst upper pole left kidney. There are no echogenic stones or hydronephrosis in either kidney. Likely small scar along the midpole lateral cortex right kidney <Sheyla Willett NP - Last Filed: 07/04/20 18:30> Discharge Plan Discharge Clinical Impression: Abdominal pain Qualifiers: Abdominal location: generalized Qualified Code(s): R10.84 - Generalized abdominal pain <KELLY Palmer - Last Filed: 07/04/20 17:13> Patient Disposition: Home, Self-Care <KELLY Palmer - Last Filed: 07/04/20 17:13> Instructions: Urinary Tract Infection in Women (ED), Chronic Abdominal Pain (ED) <KELLY Palmer - Last Filed: 07/04/20 17:13> Additional Instructions: You were evaluated for abdominal pain. Renal ultrasound was negative for acute findings require emergent intervention. You do have a small renal cyst. Please follow-up with your primary care physician. Your lab values were within normal limits, with the exception of your glucose was 121. Urinalysis is positive for suspected UTI. We will treat you with Macrobid. Please take this medication as directed. Please use Pyridium as needed for pain management. This medication will turn your urine bright orange. This is a normal side effect. Thank you for choosing this emergency department for evaluation. Please follow- up with primary care physician as needed. Return to the emergency department for any new, concerning, or worsening symptoms. <KELLY Palmer - Last Filed: 07/04/20 17:13> Prescriptions: New nitrofurantoin monohyd/m-cryst [Macrobid] 100 mg capsule 100 mg PO Q12H 7 Days Qty: 14 RF: 0 phenazopyridine [Pyridium] 200 mg tablet 200 mg PO TID PRN (Reason: pain) Qty: 6 RF: 0 No Action naproxen 500 mg tablet 500 mg PO BID PRN (Reason: pain) Qty: 14 RF: 0 prednisone 20 mg tablet 40 mg PO DAILY 5 Days Qty: 10 RF: 0 tramadol 50 mg tablet 50 mg PO Q8H PRN (Reason: pain) Qty: 10 RF: 0 ciprofloxacin HCl 500 mg tablet 500 mg PO Q12H 3 Days Qty: 6 RF: 0 naproxen 500 mg tablet 500 mg PO BID PRN (Reason: pain) Qty: 14 RF: 0 nitrofurantoin monohyd/m-cryst [Macrobid] 100 mg capsule 100 mg PO Q12H 7 Days Qty: 14 RF: 0 tramadol 50 mg tablet 50 mg PO TID PRN (Reason: pain) Qty: 9 RF: 0 cyclobenzaprine 10 mg tablet 10 mg PO TID PRN (Reason: muscle spasm) Qty: 20 RF: 0 <KELLY Palmer - Last Filed: 07/04/20 17:13> [facility] Past Medical History Medical History: Medical History (Updated 07/04/20 @ 18:27 by Sheyla Willett NP) Anxiety Arthritis Asthma Chronic cystitis Depression PTSD (post-traumatic stress disorder) <KELLY Palmer - Last Filed: 07/04/20 17:13> Surgical History: Surgical History H/O knee surgery H/O tubal ligation Hx of cholecystectomy Hx of shoulder surgery S/P foot surgery <KELLY Palmer - Last Filed: 07/04/20 17:13> Social History Social History: Social History Alcohol intake: never Smoking Status: Never smoker Use of substances other than those prescribed or required for medical reasons: No Advance Directives: No Advance Directives Information Provided: Yes <KELLY Palmer - Last Filed: 07/04/20 17:13>
[2020-07-04 18:04] VITALS: BP 126/80; PULSE 83; RESP 18; TEMP 36.8; O2SAT 99
--- NOTE | 2020-07-04 18:05 | PC.NURSE ---
patient a&ox3, vss, pt states she currently has 0/10 pain and that the morphine worked but made her tired, call eddy within reach, will continue to monitor
[2020-07-04] MEDS: Nitrofurantoin Monohyd/M-Cryst 100 MG CAPSULE PO (18:37)
[2020-07-04] MEDS: Phenazopyridine HCL 100 MG TABLET 200 MG PO (18:42)
== END 2020-07-04 19:04 | disposition home or self-care (01) ==
PROVIDERS: Physician Assistant; Emergency Provider Emergency Medicine Emergency Medical Services; PCP Nurse Practitioner Family
DX: R10.84 Generalized abdominal pain (principal); R11.2 Nausea with vomiting, unspecified; Q61.01 Congenital single renal cyst
CPT/HCPCS: 36415; 76775; 80053; 81001; 81003; 81025; 85025; 87086; 96361; 96374; 96375; 99284; J1885; J2270; J2405

== ENCOUNTER 2020-09-06 11:40 | Emergency (ER) | payer OTHER, SELFPAY ==
--- NOTE | ~2020-09-06 | XR_ITS ---
EXAMINATION: XR KNEE, RIGHT CLINICAL INFORMATION: Right knee pain COMPARISON: None TECHNIQUE: Four views of the right knee. FINDINGS: There is loss of medial compartment joint space with periarticular spurring. The lateral and the patellofemoral compartment joint space is maintained normal. No visible acute fracture, dislocation or loose body seen. The soft tissues are normal. XR/XR knee RT 4V IMPRESSION: Mild degenerative changes medial compartment right knee. No visible acute fracture, dislocation or loose bodies. No abnormal joint effusion either.
[2020-09-06 11:49] VITALS: BP 119/65; PULSE 68; RESP 18; TEMP 36.8; O2SAT 98; BMI 46.0
--- NOTE | 2020-09-06 13:47 | ED_ITS ---
HPI - Extremity Problem General Chief complaint: Extremity Problem Stated complaint: pain on right knee Time Seen by Provider: 09/06/20 13:12 History of Present Illness HPI Narrative: Patient complains of flare up without new injury of right knee pain that she had experienced for several months, she had an MRI a couple of days ago at [facility] and does have appropriate follow-up orthopedic care Related Data Previous Rx's Medication Instructions Recorded naproxen 500 mg PO BID PRN #14 tab 02/08/20 prednisone 40 mg PO DAILY 5 Days #10 tab 02/08/20 tramadol 50 mg PO Q8H PRN #10 tab 03/21/20 nitrofurantoin monohyd/m-cryst 100 mg PO Q12H 7 Days #14 cap 04/26/20 [Macrobid] ciprofloxacin HCl 500 mg PO Q12H 3 Days #6 tab 05/01/20 naproxen 500 mg PO BID PRN #14 tab 05/01/20 tramadol 50 mg PO TID PRN #9 tab 05/24/20 cyclobenzaprine 10 mg PO TID PRN #20 tab 05/28/20 nitrofurantoin monohyd/m-cryst 100 mg PO Q12H 7 Days #14 cap 07/04/20 [Macrobid] phenazopyridine [Pyridium] 200 mg PO TID PRN #6 tab 07/04/20 oxycodone-acetaminophen [Percocet] 1 tab PO Q6H PRN #7 tab 09/06/20 Allergies Allergy/AdvReac Type Severity Reaction Status Date / Time No Known Allergies Allergy Verified 07/04/20 14:36 [No Known Allergies*] Review of Systems Review of Systems: Positive for right knee pain negatives are no fever no chills no headache no neck pain no back pain no numbness weakness or tingling no redness no rash Yes all other systems are reviewed and are negative PMFSH Past Medical History Source: nursing notes reviewed Medical History (Updated 09/07/20 @ 00:01 by Greta Campuzano) Anxiety Arthritis Asthma Chronic cystitis Depression PTSD (post-traumatic stress disorder) Surgical History H/O knee surgery H/O tubal ligation Hx of cholecystectomy Hx of shoulder surgery S/P foot surgery Social History Social History Alcohol intake: never Advance Directives: No Advance Directives Information Provided: No Patient : No Physical Exam Vital Signs: Vital Signs: Last Vital Signs Temp 98.2 F 09/06/20 11:49 Pulse 68 09/06/20 11:49 Resp 18 09/06/20 11:49 BP 119/65 09/06/20 11:49 Pulse Ox 98 09/06/20 11:49 Body Mass Index 46.0 General appearance is no acute distress Head is normocephalic atraumatic Neck is supple Respiratory no distress Extremities the right knee has some mild swelling extends to 188 flexes to around 90 she can walk with a slight limp there is no ligamentous laxity there is tenderness on both lateral and medial aspect there is no obvious effusion and neurovascular intact distal with normal skin color Neuro no gross motor sensory deficit Skin no rash Course Course Course Narrative: X-ray showed some arthritic changes and patient is discharged to follow with Orthopedics Discharge Plan Discharge Clinical Impression: Arthralgia of knee, right Patient Disposition: Home, Self-Care Additional Instructions: I wrote you for 7 Percocet tablets for when Motrin is not enough for pain relief This medication is habit-forming and sedating so you cannot drive for 6 hours after taking this medication Future prescriptions need to come from primary care or from her orthopedist Follow with her orthopedist to learn the results of her MRI and for further specialty care Prescriptions: New oxycodone-acetaminophen [Percocet] 5-325 mg tablet 1 tab PO Q6H PRN (Reason: pain) Qty: 7 RF: 0 No Action naproxen 500 mg tablet 500 mg PO BID PRN (Reason: pain) Qty: 14 RF: 0 prednisone 20 mg tablet 40 mg PO DAILY 5 Days Qty: 10 RF: 0 tramadol 50 mg tablet 50 mg PO Q8H PRN (Reason: pain) Qty: 10 RF: 0 ciprofloxacin HCl 500 mg tablet 500 mg PO Q12H 3 Days Qty: 6 RF: 0 naproxen 500 mg tablet 500 mg PO BID PRN (Reason: pain) Qty: 14 RF: 0 nitrofurantoin monohyd/m-cryst [Macrobid] 100 mg capsule 100 mg PO Q12H 7 Days Qty: 14 RF: 0 phenazopyridine [Pyridium] 200 mg tablet 200 mg PO TID PRN (Reason: pain) Qty: 6 RF: 0 nitrofurantoin monohyd/m-cryst [Macrobid] 100 mg capsule 100 mg PO Q12H 7 Days Qty: 14 RF: 0 tramadol 50 mg tablet 50 mg PO TID PRN (Reason: pain) Qty: 9 RF: 0 cyclobenzaprine 10 mg tablet 10 mg PO TID PRN (Reason: muscle spasm) Qty: 20 RF: 0 Stand Alone Forms: Work/School Release Interventions: ED Discharge Assessment Last Done: 09/06/20 13:56 Discharge Date/Time: 09/06/20 13:59
== END 2020-09-06 13:59 | disposition home or self-care (01) ==
PROVIDERS: Emergency Provider Emergency Medicine Emergency Medical Services; PCP Nurse Practitioner Family
DX: M25.561 Pain in right knee (principal)
CPT/HCPCS: 73564; 99283

== ENCOUNTER 2020-10-04 17:33 | Emergency (ER) | payer OTHER, SELFPAY ==
[2020-10-04 17:34] VITALS: BP 127/77; PULSE 78; RESP 16; TEMP 36.6; O2SAT 96; BMI 46.0
[2020-10-04 18:05] LABS: MANUAL DIFF FLAG NO
[2020-10-04 18:06] LABS: Basophils Percent Auto 0.5 % (0-2); Eosinophils Absolute Auto 0.3 X10*3/uL (0.0-0.4); Eosinophils Percent Auto 3.9 % (0-4); Hematocrit 41.3 % (37-47); Hemoglobin 13.3 g/dl (12.0-16.0); Imm Gran Abs Auto 0.02 X10*3/uL (0.00-0.03); Imm Gran Pct Auto 0.3 % (0.0-0.4); Lymphocytes Absolute Auto 2.2 X10*3/uL (1.2-4.9); Lymphocytes Percent Auto 29.2 % (20-40); Mean Corpuscular HGB Conc 32.2 g/dl (31.0-35.0); Mean Corpuscular Hemoglobin 26.9 pg (27.0-33.0); Mean Corpuscular Volume 83.6 fL (80-98); Mean Platelet Volume 9.8 fL (9.4-12.3); Monocytes Absolute Auto 0.6 X10*3/uL (0.1-1.2); Monocytes Percent Auto 8.3 % (2-11); Neutrophils Absolute Auto 4.3 X10*3/uL (2.0-8.3); Neutrophils Percent Auto 57.8 % (45-73); Platelet Count 266 X10*3/uL (160-400); Red Blood Count 4.94 X10*6/uL (4.20-5.50); Red Cell Distribution Width 13.4 % (11.0-16.0); White Blood Count 7.5 X10*3/uL (4.8-10.8)
[2020-10-04 18:57] LABS: Alanine Aminotransferase 24 U/L (0-31); Albumin Level 4.3 g/dL (3.5-5.0); Alkaline Phosphatase 73 U/L (39-117); Anion Gap 13 (12-20); Aspartate Amino Transferase 23 U/L (5-31); Bilirubin Total 0.4 mg/dL (0.0-1.0); Blood Urea Nitrogen 9 mg/dL (9-16); Calcium 9.5 mg/dL (8.4-10.2); Carbon Dioxide 25 mmol/L (22-29); Chloride 108 mmol/L (96-108); Estimated Glomerular Filt Rate > 60; Glucose Random 96 mg/dL (60-115); Potassium 3.8 mmol/L (3.3-5.1); Sodium 142 mmol/L (135-145); Total Protein 7.2 g/dL (6.5-8.0)
--- NOTE | 2020-10-04 19:34 | ED_ITS ---
HPI - Female Genitourinary General Chief complaint: Abdominal Pain Stated complaint: flank pain Time Seen by Provider: 10/04/20 19:22 Source: patient Mode of arrival: ambulatory Limitations: no limitations History of Present Illness HPI Narrative: Patient complaining of dysuria frequency for last 2 days with left flank pain no nausea no vomiting no fever no chills no hematuria no abdominal pain patient feels fine otherwise, no vaginal discharge Related Data Previous Rx's Medication Instructions Recorded naproxen 500 mg PO BID PRN #14 tab 02/08/20 prednisone 40 mg PO DAILY 5 Days #10 tab 02/08/20 tramadol 50 mg PO Q8H PRN #10 tab 03/21/20 nitrofurantoin monohyd/m-cryst 100 mg PO Q12H 7 Days #14 cap 04/26/20 [Macrobid] ciprofloxacin HCl 500 mg PO Q12H 3 Days #6 tab 05/01/20 naproxen 500 mg PO BID PRN #14 tab 05/01/20 tramadol 50 mg PO TID PRN #9 tab 05/24/20 cyclobenzaprine 10 mg PO TID PRN #20 tab 05/28/20 nitrofurantoin monohyd/m-cryst 100 mg PO Q12H 7 Days #14 cap 07/04/20 [Macrobid] phenazopyridine [Pyridium] 200 mg PO TID PRN #6 tab 07/04/20 oxycodone-acetaminophen [Percocet] 1 tab PO Q6H PRN #7 tab 09/06/20 ibuprofen 600 mg PO Q6H PRN #20 tab 10/04/20 Allergies Allergy/AdvReac Type Severity Reaction Status Date / Time No Known Allergies Allergy Verified 07/04/20 14:36 [No Known Allergies*] Review of Systems 2 Review of Systems: Yes all other systems are reviewed and are negative PMFSH Past Medical History Medical History Anxiety Arthritis Asthma Chronic cystitis Depression PTSD (post-traumatic stress disorder) Surgical History H/O knee surgery H/O tubal ligation Hx of cholecystectomy Hx of shoulder surgery S/P foot surgery Social History Social History Alcohol intake: never Advance Directives: No Advance Directives Information Provided: No Physical Exam 2 Vital Signs: Vital Signs: Last Vital Signs Temp 97.8 F 10/04/20 17:34 Pulse 78 10/04/20 17:34 Resp 16 10/04/20 17:34 BP 127/77 10/04/20 17:34 Pulse Ox 96 10/04/20 17:34 Body Mass Index 46.0 Appearance: Alert. Oriented X3. No acute distress. Eyes: PERRLA, ENT: Pharynx normal. Oral Mucosa moist Neck: Normal inspection. Neck supple. CVS: Normal heart rate and rhythm. Pulses normal. Respiratory: No respiratory distress. Equal air entry bilateral, no wheezing/rales/rhonchi Abdomen: Soft and nontender. Bowel sounds are present, no mass palpable, mild left CVA tenderness Skin: Skin warm and dry. Normal skin color. Normal skin turgor. Extremities: No lower extremity edema. MDM - Female Genitourinary MDM Narrative Medical decision making narrative: Patient labs stable urine negative for UTI or hematuria patient feels comfortable likely muscular discharge her home on ibuprofen Differential Diagnosis Differential diagnosis: Likely urinary tract infection Lab Data Attestation: I reviewed the patient's lab results. Result diagrams: 10/04/20 18:01 10/04/20 18:01 Labs: Lab Results 10/04/20 10/04/20 10/04/20 Range/Units 18:01 18:01 19:42 WBC 7.5 (4.8-10.8) X10*3/uL RBC 4.94 (4.20-5.50) X10*6/uL Hgb 13.3 (12.0-16.0) g/dl Hct 41.3 (37-47) % MCV 83.6 (80-98) fL MCH 26.9 L (27.0-33.0) pg MCHC 32.2 (31.0-35.0) g/dl RDW 13.4 (11.0-16.0) % Plt Count 266 (160-400) X10*3/uL MPV 9.8 (9.4-12.3) fL Immature Gran % (Auto) 0.3 (0.0-0.4) % Neut % (Auto) 57.8 (45-73) % Lymph % (Auto) 29.2 (20-40) % [place] % (Auto) 8.3 (2-11) % Eos % (Auto) 3.9 (0-4) % Baso % (Auto) 0.5 (0-2) % Lymph # (Auto) 2.2 (1.2-4.9) X10*3/uL [place] # (Auto) 0.6 (0.1-1.2) X10*3/uL Eos # (Auto) 0.3 (0.0-0.4) X10*3/uL Baso # (Auto) 0.0 (0.0-0.2) X10*3/uL Abs Immat Gran (auto) 0.02 (0.00-0.03) X10*3/uL Absolute Neuts (auto) 4.3 (2.0-8.3) X10*3/uL Absolute Nucleated RBC 0.000 (0.0-0.012) X10*3/uL Nucleated RBC % (auto) 0.0 (0.0-0.2) /100WBC Sodium 142 (135-145) mmol/L Potassium 3.8 (3.3-5.1) mmol/L Chloride 108 (96-108) mmol/L Carbon Dioxide 25 (22-29) mmol/L Anion Gap 13 (12-20) BUN 9 (9-16) mg/dL Creatinine 0.82 (0.5-1.4) mg/dL Estim Creat Clear Calc 121.0 Estimated GFR > 60 Random Glucose 96 (60-115) mg/dL Calcium 9.5 (8.4-10.2) mg/dL Total Bilirubin 0.4 (0.0-1.0) mg/dL AST 23 (5-31) U/L ALT 24 (0-31) U/L Alkaline Phosphatase 73 D (39-117) U/L Total Protein 7.2 (6.5-8.0) g/dL Albumin 4.3 (3.5-5.0) g/dL Urine Color YELLOW Urine Appearance CLEAR Urine pH 6.0 (5.0-8.0) Ur Specific [place] >= 1.030 H (1.005-1.025) Urine Protein TRACE (NEG-TRACE) MG/DL Urine Glucose (UA) NEG (NEG) MG/DL Urine Ketones NEG (NEG) MG/DL Urine Blood NEG (NEG) Urine Nitrite NEG (NEG) Ur Leukocyte Esterase NEG (NEG) Discharge Plan Discharge Clinical Impression: Back pain Qualifiers: Back pain location: low back pain Chronicity: acute Back pain laterality: left Sciatica presence: without sciatica Qualified Code(s): M54.5 - Low back pain Patient Disposition: Home, Self-Care Instructions: Acute Low Back Pain (ED) Additional Instructions: Rest at home Pain medicine as advised You do not have any urine tract infection Prescriptions: New ibuprofen 600 mg tablet 600 mg PO Q6H PRN (Reason: pain) Qty: 20 RF: 0 No Action naproxen 500 mg tablet 500 mg PO BID PRN (Reason: pain) Qty: 14 RF: 0 prednisone 20 mg tablet 40 mg PO DAILY 5 Days Qty: 10 RF: 0 tramadol 50 mg tablet 50 mg PO Q8H PRN (Reason: pain) Qty: 10 RF: 0 ciprofloxacin HCl 500 mg tablet 500 mg PO Q12H 3 Days Qty: 6 RF: 0 naproxen 500 mg tablet 500 mg PO BID PRN (Reason: pain) Qty: 14 RF: 0 nitrofurantoin monohyd/m-cryst [Macrobid] 100 mg capsule 100 mg PO Q12H 7 Days Qty: 14 RF: 0 phenazopyridine [Pyridium] 200 mg tablet 200 mg PO TID PRN (Reason: pain) Qty: 6 RF: 0 nitrofurantoin monohyd/m-cryst [Macrobid] 100 mg capsule 100 mg PO Q12H 7 Days Qty: 14 RF: 0 tramadol 50 mg tablet 50 mg PO TID PRN (Reason: pain) Qty: 9 RF: 0 cyclobenzaprine 10 mg tablet 10 mg PO TID PRN (Reason: muscle spasm) Qty: 20 RF: 0 oxycodone-acetaminophen [Percocet] 5-325 mg tablet 1 tab PO Q6H PRN (Reason: pain) Qty: 7 RF: 0
[2020-10-04 19:50] LABS: Glucose Urine UA NEG (NEG); Leukocyte Esterase Urine NEG (NEG); Nitrite Urine NEG (NEG); Specific Gravity - Urine >= 1.030 (1.005-1.025); Urine Blood NEG (NEG); Urine Ketones NEG (NEG); Urine Protein TRACE MG/DL (NEG-TRACE)
[2020-10-04 19:55] LABS: Appearance Urine CLEAR; Color Urine YELLOW
== END 2020-10-04 20:31 | disposition home or self-care (01) ==
PROVIDERS: Emergency Provider Internal Medicine; PCP Nurse Practitioner Family
DX: M54.5 Low back pain (principal); R30.0 Dysuria
CPT/HCPCS: 36415; 80053; 81003; 85025; 99283

== ENCOUNTER 2020-10-16 22:37 | Emergency (ER) | payer OTHER, SELFPAY ==
[2020-10-16 23:12] VITALS: BP 108/75; PULSE 68; RESP 18; TEMP 36.6; O2SAT 97; BMI 45.2
--- NOTE | 2020-10-17 00:05 | ED_ITS ---
HPI - Headache General Chief Complaint: Headache Stated Complaint: Migraine Time Seen by Provider: 10/16/20 22:46 Source: patient Mode of arrival: ambulatory Limitations: no limitations History of Present Illness MD elicited complaint: headache and migraine Pertinent past history: migraines Onset (ago): day(s) (6) Onset description: gradually Location: left, temporal and occipital Severity: severe Quality & Timing: throbbing Exacerbating factors: light and noise Relieving factors: nothing Context: occurred at rest Associated symptoms: nausea and photophobia Treatments prior to arrival: acetaminophen and prescription analgesic Related Data Previous Rx's Medication Instructions Recorded naproxen 500 mg PO BID PRN #14 tab 02/08/20 prednisone 40 mg PO DAILY 5 Days #10 tab 02/08/20 tramadol 50 mg PO Q8H PRN #10 tab 03/21/20 nitrofurantoin monohyd/m-cryst 100 mg PO Q12H 7 Days #14 cap 04/26/20 [Macrobid] ciprofloxacin HCl 500 mg PO Q12H 3 Days #6 tab 05/01/20 naproxen 500 mg PO BID PRN #14 tab 05/01/20 tramadol 50 mg PO TID PRN #9 tab 05/24/20 cyclobenzaprine 10 mg PO TID PRN #20 tab 05/28/20 nitrofurantoin monohyd/m-cryst 100 mg PO Q12H 7 Days #14 cap 07/04/20 [Macrobid] phenazopyridine [Pyridium] 200 mg PO TID PRN #6 tab 07/04/20 oxycodone-acetaminophen [Percocet] 1 tab PO Q6H PRN #7 tab 09/06/20 ibuprofen 600 mg PO Q6H PRN #20 tab 10/04/20 cyclobenzaprine 10 mg PO TID PRN #14 tab 10/17/20 ondansetron 4 mg PO Q8H PRN #20 tab 10/17/20 Allergies Allergy/AdvReac Type Severity Reaction Status Date / Time No Known Allergies Allergy Verified 07/04/20 14:36 [No Known Allergies*] Review of Systems Review of Systems: Constitutional : No Fever, No Chills, No Fatigue ENT/Mouth : No sore throat, No Rhinorrhea Eyes: pos Eye Pain, No Swelling, No Redness Cardiovascular : No Chest Pain, No SOB, No Dyspnea on Exertion Respiratory : No Cough, No Sputum Gastrointestinal : pos Nausea, No Vomiting, No Diarrhea, No abdominal Pain Genitourinary : No Dysuria, No Urinary Frequency, No Hematuria, Musculoskeletal : No joint pain, No Myalgias, No Joint Swelling Skin : No Skin Lesions, No rash Neuro : No Weakness, No Numbness, No Dizziness, positive Headache Psych : No Anxiety/Panic, No Depression Heme/Lymph: No Bruising, No Bleeding,No Lymphadenopathy Endocrine : No Polyuria, No Polydipsia All other systems reviewed and are negative [facility] Past Medical History Attestation statement: The following information was validated with the patient. Medical History Anxiety Arthritis Asthma Chronic cystitis Depression PTSD (post-traumatic stress disorder) Surgical History H/O knee surgery H/O tubal ligation Hx of cholecystectomy Hx of shoulder surgery S/P foot surgery Social History Social History (Updated 10/17/20 @ 00:06 by Jillian Samaniego DO) Alcohol intake: never Patient Tobacco Use Status: Never used Tobacco Use of substances other than those prescribed or required for medical reasons: No Advance Directives: No Advance Directives Information Provided: No Patient : No Physical Exam Vital Signs: Vital Signs: Last Vital Signs Temp 97.8 F 10/16/20 23:12 Pulse 68 10/16/20 23:12 Resp 18 10/16/20 23:12 BP 108/75 10/16/20 23:12 Pulse Ox 97 10/16/20 23:12 Body Mass Index 45.2 Appearance: Alert. Oriented X3. No acute distress. Eyes: Pupils equal, round and reactive to light. Photophobia ENT: Pharynx normal. Neck: Normal inspection. Neck supple. no meningeal signs CVS: Normal heart rate and rhythm. Pulses normal. Respiratory: No respiratory distress. Breath sounds normal. Abdomen: Soft and nontender. Skin: Skin warm and dry. Normal skin color. Normal skin turgor. Extremities: No lower extremity edema. No calf ttp Neuro: Oriented X 3. No motor deficit. No sensory deficit. Steady gait Course Course Course Narrative: patient feels better stable for DC MDM - Headache MDM Narrative Medical decision making narrative: 35 yo female with hx of anxiety, migraines , arthritis at this time gradual onset headache - at this time no fevers, no meningeal signs, normal neuro exam doubt [employer] infection/SAH will give IV medications for migraine, once improved stable for DC Discharge Plan Discharge Clinical Impression: Migraine Qualifiers: Migraine type: without aura Status migrainosus presence: without status migrainosus Intractability: not intractable Qualified Code(s): G43.009 - Andres rodriguez without aura, not intractable, without status migrainosus Patient Disposition: Home, Self-Care Instructions: Migraine Headache (ED) Additional Instructions: return to ED for any worsening symptoms or concerns Prescriptions: New cyclobenzaprine 10 mg tablet 10 mg PO TID PRN (Reason: muscle spasm) Qty: 14 RF: 0 ondansetron 4 mg tablet,disintegrating 4 mg PO Q8H PRN (Reason: nausea and vomiting) Qty: 20 RF: 0 No Action naproxen 500 mg tablet 500 mg PO BID PRN (Reason: pain) Qty: 14 RF: 0 prednisone 20 mg tablet 40 mg PO DAILY 5 Days Qty: 10 RF: 0 tramadol 50 mg tablet 50 mg PO Q8H PRN (Reason: pain) Qty: 10 RF: 0 ciprofloxacin HCl 500 mg tablet 500 mg PO Q12H 3 Days Qty: 6 RF: 0 naproxen 500 mg tablet 500 mg PO BID PRN (Reason: pain) Qty: 14 RF: 0 nitrofurantoin monohyd/m-cryst [Macrobid] 100 mg capsule 100 mg PO Q12H 7 Days Qty: 14 RF: 0 phenazopyridine [Pyridium] 200 mg tablet 200 mg PO TID PRN (Reason: pain) Qty: 6 RF: 0 ibuprofen 600 mg tablet 600 mg PO Q6H PRN (Reason: pain) Qty: 20 RF: 0 nitrofurantoin monohyd/m-cryst [Macrobid] 100 mg capsule 100 mg PO Q12H 7 Days Qty: 14 RF: 0 tramadol 50 mg tablet 50 mg PO TID PRN (Reason: pain) Qty: 9 RF: 0 cyclobenzaprine 10 mg tablet 10 mg PO TID PRN (Reason: muscle spasm) Qty: 20 RF: 0 oxycodone-acetaminophen [Percocet] 5-325 mg tablet 1 tab PO Q6H PRN (Reason: pain) Qty: 7 RF: 0 Stand Alone Forms: Work/School Release
[2020-10-17] MEDS: 0.9 % Sodium Chloride 1,000 ML 999 ML IVCONT (00:23)
[2020-10-17] MEDS: Metoclopramide HCl 10 MG/2 ML VIAL IVPUSH (00:24)
[2020-10-17] MEDS: diphenhydrAMINE HCL 50 MG/ML VIAL 25 MG IVPUSH (00:24)
[2020-10-17] MEDS: Ketorolac Tromethamine 15 MG/ML VIAL IVPUSH (00:24)
[2020-10-17] MEDS: Magnesium Sulfate/H2O 2 GM/50 ML PIGGYBACK IV (00:25)
[2020-10-17 01:55] VITALS: BP 106/54; PULSE 75; RESP 18; O2SAT 98
--- NOTE | 2020-10-17 01:56 | PC.NURSE ---
PT REPORTS POSITIVE RELIEF FROM PAIN MEDS. AWAITING IVF TO FINISH AND MD REEVAL. VSS. AWARE OF PLAN OF CARE.
[2020-10-17 04:00] VITALS: RESP 16
== END 2020-10-17 05:26 | disposition home or self-care (01) ==
PROVIDERS: Emergency Provider Emergency Medicine; PCP Nurse Practitioner Family
DX: G43.009 Migraine without aura, not intractable, without status migrainosus (principal)
CPT/HCPCS: 96361; 96365; 96366; 96375; 99284; 99285; J1200; J1885; J2765; J3475

== ENCOUNTER 2020-10-21 21:14 | Emergency (ER) | payer OTHER, SELFPAY ==
[2020-10-21 21:26] VITALS: BP 125/62; PULSE 71; RESP 19; TEMP 36.8; O2SAT 95; BMI 45.1
[2020-10-21 22:43] LABS: Basophils Percent Auto 0.1 % (0-2); Hematocrit 42.2 % (37-47); Hemoglobin 13.9 g/dl (12.0-16.0); Imm Gran Abs Auto 0.04 X10*3/uL (0.00-0.03); Imm Gran Pct Auto 0.5 % (0.0-0.4); Lymphocytes Absolute Auto 0.8 X10*3/uL (1.2-4.9); Lymphocytes Percent Auto 9.8 % (20-40); MANUAL DIFF FLAG NO; Mean Corpuscular HGB Conc 32.9 g/dl (31.0-35.0); Mean Corpuscular Hemoglobin 27.1 pg (27.0-33.0); Mean Corpuscular Volume 82.3 fL (80-98); Mean Platelet Volume 9.7 fL (9.4-12.3); Monocytes Percent Auto 0.5 % (2-11); Neutrophils Absolute Auto 7.3 X10*3/uL (2.0-8.3); Neutrophils Percent Auto 89.1 % (45-73); Platelet Count 316 X10*3/uL (160-400); Red Blood Count 5.13 X10*6/uL (4.20-5.50); Red Cell Distribution Width 13.2 % (11.0-16.0); White Blood Count 8.2 X10*3/uL (4.8-10.8)
[2020-10-21 23:17] LABS: Anion Gap 15 (12-20); Blood Urea Nitrogen 8 mg/dL (9-16); Calcium 10.2 mg/dL (8.4-10.2); Carbon Dioxide 23 mmol/L (22-29); Chloride 106 mmol/L (96-108); Creatinine Clr Calc Pharmacy 119.7; Estimated Glomerular Filt Rate > 60; Glucose Random 165 mg/dL (60-115); Potassium 4.1 mmol/L (3.3-5.1); Sodium 140 mmol/L (135-145)
--- NOTE | 2020-10-21 23:30 | PC.NURSE ---
PT TO ROOM WITH C/O HEAD PAIN, PT TEARFUL AND C/O PAIN BEHIND EYES. MD IN ROOM FOR EVAL. PT ALERT, RESPIRATIONS EASY, N/L. SKIN W/D. IV PLACED TO RAC, PT MEDICATED PER EMAR FOR HEAD PAIN. DAUGHTER WITH PT AT BEDSIDE. WARM BLK GIVEN TO PT. WILL CONTINUE TO MONITOR PT.
--- NOTE | 2020-10-21 23:42 | ED.HA ---
HPI - Headache General Chief Complaint: Headache Stated Complaint: continued migraine and vomiting Time Seen by Provider: 10/21/20 23:30 Source: patient Mode of arrival: ambulatory Limitations: no limitations History of Present Illness HPI Narrative: 35-year-old female with history of migraine headaches who presents emergency department for evaluation headache x3 days. Patient states that she has pain in the front and back of her head, the pain is a hammering sensation which is constant and is 10/10. The pain is associated with nausea, the patient vomited 4 times today, photophobia and weakness. She denied fever, chills, chest pain, shortness of breath, abdominal pain, weakness or numbness in her extremities. Patient states she was here in the emergency department 3 or 4 days prior was treated with magnesium, Toradol, regular and Benadryl with improvement of her migraine. She states however 1-2 days after leaving the emergency department her pain returned. She was given a prescription for Zofran but she states that this is not helped her symptoms. Related Data Allergies Allergy/AdvReac Type Severity Reaction Status Date / Time No Known Allergies Allergy Verified 10/21/20 21:26 Review of Systems Review of Systems: Yes all other systems are reviewed and are negative [facility] Past Medical History [facility] Narrative: Social history: The patient denies tobacco, alcohol and drug use. Medical History Arthritis Asthma Migraines Obesity Surgical History H/O knee surgery Hx of cholecystectomy Hx of shoulder surgery Tubal ligation status Social History Social History Advance Directives: No Advance Directives Information Provided: No Patient : No Physical Exam Vital Signs: Vital Signs: Last Vital Signs Temp 98.2 F 10/21/20 21:26 Pulse 71 10/21/20 21:26 Resp 19 10/21/20 21:26 BP 125/62 10/21/20 21:26 Pulse Ox 95 10/21/20 21:26 Body Mass Index 45.1 Const: General: cooperative and in distress (Secondary to photophobia and headache) Orientation/consciousness: oriented to person and oriented to place Limitations: no limitations HENMT: Head: Yes normal to inspection, Yes normocephalic and Yes atraumatic Ears: external ears normal General nose exam: Normal external nose present Face and sinus: Yes normal facial exam Mouth: Normal oral and palatal mucosa present Throat: Yes posterior oropharynx normal Eyes: Periorbital: periorbital findings normal Eyelids: Yes eyelids normal Conjunctivae: conjunctivae normal Sclerae: sclerae normal Corneas: corneas normal Pupils: Equal, round and reactive pupils present Direct Ophthalmoscopy: normal light reflex Neck: Neck: Yes full ROM, Yes no lymphadenopathy, Yes no meningeal signs, Yes trachea midline and Yes supple Chest: Chest palpation & inspection: normal inspection of the chest and normal palpation of entire chest wall Resp: Effort & Inspection: normal respiratory effort and able to speak in complete sentences Auscultation: clear to auscultation bilaterally Cardio: Rate: regular rate Rhythm: regular rhythm Heart sounds: S1 normal heart sound present, S2 normal heart sound present and no murmurs GI: Inspection: Yes normal to inspection Palpation (GI): Soft to palpation, nontender, no guarding, not rigid and No hepatosplenomegaly present : General: Yes no CVA tenderness Back/Spine/Pelvis: Back: no CVA tenderness Cervical Spine: normal cervical lordosis Thoracic/Lumbar Spine: thoracic and lumbar spine normal to inspection Skin: Lesions: no lesions Rashes: no rashes Wounds: no wounds Neuro: General: oriented to person, oriented to place and no meningeal signs Cranial nerves: Yes CN's II-XII intact bilaterally and Yes Equal, round and reactive pupils present Cognition (Neuro): normal cognition Motor exam (neuro): 5/5 motor strength present throughout Extrem: General: Yes normal to inspection and Yes full ROM Psych: Appearance: well kempt Mental Status: mental status grossly normal Speech and movement: Normal speech and movement present Affect: normal affect Attitude: cooperative Thought process: Normal thought process present Thought content: Normal thought content present Course Course Course Narrative: 35-year-old female who presents emergency department for evaluation of migraine-like headache times 2-3 days. Patient has a history of migraine syndrome and was seen here recently for similar pain. Vital signs were normal. patient's physical examination was unremarkable with a nonfocal neurologic exam. Patient will be treated for migraine syndrome with magnesium 1 g IV, Reglan 10 mg IV, Benadryl 50 mg IV, and Toradol 30 mg IV. 0152: The patient got improvement of her nausea with the above treatment but her headache pain persisted. She was given morphine 4 mg IV with improvement of her headache. The patient is feeling better and does want to go home. The patient will be treated with the following migraine regimen: Excedrin migraine 2 tablets, Benadryl 50 mg, and regular and 10 mg orally every 6 hours as needed. The patient was given verbal and printed instructions prior to discharge. The patient was advised to follow-up with her PCP in 2 days and to return to the emergency department if their symptoms get worse or if she develop any new symptoms that are concerning to her. MDM - Headache Lab Data Result diagrams: 10/21/20 22:32 10/21/20 22:32 Labs: Lab Results 10/21/20 10/21/20 10/22/20 Range/Units 22:32 22:32 00:30 WBC 8.2 (4.8-10.8) X10*3/uL RBC 5.13 (4.20-5.50) X10*6/uL Hgb 13.9 (12.0-16.0) g/dl Hct 42.2 (37-47) % MCV 82.3 (80-98) fL MCH 27.1 (27.0-33.0) pg MCHC 32.9 (31.0-35.0) g/dl RDW 13.2 (11.0-16.0) % Plt Count 316 (160-400) X10*3/uL MPV 9.7 (9.4-12.3) fL Immature Gran % (Auto) 0.5 H (0.0-0.4) % Neut % (Auto) 89.1 H (45-73) % Lymph % (Auto) 9.8 L (20-40) % [place] % (Auto) 0.5 L (2-11) % Eos % (Auto) 0.0 (0-4) % Baso % (Auto) 0.1 (0-2) % Lymph # (Auto) 0.8 L (1.2-4.9) X10*3/uL [place] # (Auto) 0.0 L (0.1-1.2) X10*3/uL Eos # (Auto) 0.0 (0.0-0.4) X10*3/uL Baso # (Auto) 0.0 (0.0-0.2) X10*3/uL Abs Immat Gran (auto) 0.04 H (0.00-0.03) X10*3/uL Absolute Neuts (auto) 7.3 (2.0-8.3) X10*3/uL Absolute Nucleated RBC 0.000 (0.0-0.012) X10*3/uL Nucleated RBC % (auto) 0.0 (0.0-0.2) /100WBC Sodium 140 (135-145) mmol/L Potassium 4.1 (3.3-5.1) mmol/L Chloride 106 (96-108) mmol/L Carbon Dioxide 23 (22-29) mmol/L Anion Gap 15 (12-20) BUN 8 L (9-16) mg/dL Creatinine 0.82 (0.5-1.4) mg/dL Estim Creat Clear Calc 119.7 Estimated GFR > 60 Random Glucose 165 H (60-115) mg/dL Calcium 10.2 (8.4-10.2) mg/dL Urine Color YELLOW Urine Appearance CLEAR Urine pH 7.5 (5.0-8.0) Ur Specific [place] 1.020 (1.005-1.025) Urine Protein NEG (NEG-TRACE) MG/DL Urine Glucose (UA) NEG (NEG) MG/DL Urine Ketones 15 (NEG) MG/DL Urine Blood TRACE (NEG) Urine Nitrite NEG (NEG) Ur Leukocyte Esterase NEG (NEG) Urine RBC 5-9 H (0) /HPF Urine WBC 1-4 (0-4) /HPF Ur Squamous Epith Cells 1+ /LPF Urine Bacteria 1+ /LPF Urine Mucus 1+ /LPF
[2020-10-22] MEDS: Ketorolac Tromethamine 15 MG/ML VIAL 30 MG IVPUSH (00:16)
[2020-10-22] MEDS: Metoclopramide HCl 10 MG/2 ML VIAL IVPUSH (00:19)
[2020-10-22] MEDS: Magnesium Sulfate/D5W 1 GM/100 ML PIGGYBACK IV (00:19)
[2020-10-22] MEDS: diphenhydrAMINE HCL 50 MG/ML VIAL IVPUSH (00:19)
[2020-10-22 00:39] LABS: Glucose Urine UA NEG (NEG); Leukocyte Esterase Urine NEG (NEG); Nitrite Urine NEG (NEG); PH 7.5 (5.0-8.0); UACC Culture Trigger NO; Urine Blood TRACE (NEG); Urine Ketones 15 MG/DL (NEG); Urine Protein NEG (NEG-TRACE)
[2020-10-22 00:41] LABS: Appearance Urine CLEAR; Color Urine YELLOW
--- NOTE | 2020-10-22 00:44 | PC.NURSE ---
IV PLACED TO RAC, PT MEDICATED PER EMAR. WILL CONTINUE TO MONITOR PT.
[2020-10-22 00:46] LABS: Bacteria Urine 1+ /LPF; Mucus Urine 1+ /LPF; Squamous Epithelial Cell Urine 1+ /LPF
[2020-10-22] MEDS: Morphine Sulfate 4 MG/ML CARTRIDGE IVPUSH (01:24)
== END 2020-10-22 02:22 | disposition home or self-care (01) ==
PROVIDERS: Emergency Provider Emergency Medicine Emergency Medical Services; PCP Nurse Practitioner Family
DX: R51.9 Headache, unspecified (principal); R11.2 Nausea with vomiting, unspecified; Z79.899 Other long term (current) drug therapy
CPT/HCPCS: 36415; 80048; 81001; 85025; 96365; 96374; 96375; 99283; J1200; J1885; J2270; J2765; J3475

== ENCOUNTER 2021-03-12 20:40 | Emergency (ER) | payer OTHER, SELFPAY ==
--- NOTE | ~2021-03-12 | XR_ITS ---
EXAMINATION: XR KNEE, RIGHT CLINICAL INFORMATION: Pain, fall. COMPARISON: Radiograph of the right knee dated from 09/06/2020. TECHNIQUE: Four views of the right knee. FINDINGS: No acute fractures or malalignment. Mild joint space narrowing and marginal osteophytes in the medial compartment. No joint effusion. No unexpected radiopaque foreign bodies. XR/XR knee RT 3V IMPRESSION: No acute fractures or malalignment. Mild degenerative osteoarthritis of the medial compartment.
[2021-03-12 22:09] VITALS: BP 128/83; PULSE 84; RESP 20; TEMP 37; O2SAT 98; BMI 43.5
--- NOTE | 2021-03-13 00:04 | ED.LOWEXIN ---
HPI - Extremity Injury (Lower) General Chief Complaint: Extremity Injury, Lower Stated Complaint: rt knee pain Time Seen by Provider: 03/13/21 00:04 Source: patient Mode of arrival: ambulatory Limitations: no limitations History of Present Illness HPI Narrative: One day ago patient tripped getting out of bed. Patient with pain with standing. Patient states she twisted the knee complaint: knee injury Onset (ago): day(s) Injury: Right: knee Place: home Severity: moderate Relieving factors: nothing Related Data Previous Rx's Medication Instructions Recorded metoclopramide HCl 10 mg tablet 10 mg PO Q6H PRN #14 tab 10/22/20 (Reglan) meloxicam 15 mg tablet (Mobic) 15 mg PO DAILY #10 tab 03/13/21 Allergies Allergy/AdvReac Type Severity Reaction Status Date / Time No Known Allergies Allergy Verified 03/12/21 22:12 Review of Systems Constitutional: Constitutional: Reports no additional constitutional complaints Eyes: Eyes: Reports no additional eye complaints ENT: Denies dizziness Cardiovascular: Cardiovascular: Reports no additional cardiovascular complaints Respiratory: Respiratory: Reports as per HPI Gastrointestinal: Gastrointestinal: Reports no additional gastrointestinal complaints Genitourinary: Genitourinary: Reports no additional female genitourinary complaints Musculoskeletal: Musculoskeletal: Reports no additional musculoskeletal complaints Integumentary/Breasts: Skin/Breast: Denies rash Neurologic: Reports system reviewed and no additional complaints, except as documented, Denies dizziness and Denies Sensory deficit (Neuro) Psychiatric: Psychiatric: Denies anxiety PMFSH Past Medical History Medical History Arthritis Asthma Migraines Obesity Surgical History H/O knee surgery Hx of cholecystectomy Hx of shoulder surgery Tubal ligation status Social History Social History Advance Directives: No Advance Directives Information Provided: No Patient : No Physical Exam Vital Signs: Vital Signs: Last Vital Signs Temp 98.6 F 03/12/21 22:09 Pulse 84 03/12/21 22:09 Resp 20 03/12/21 22:09 BP 128/83 03/12/21 22:09 Pulse Ox 98 03/12/21 22:09 BMI result Body Mass Index 43.5 Const: Other: obese female moaning with pain Nutritional Appearance: obese Orientation/consciousness: oriented to person and patient oriented x3 Limitations: no limitations HENMT: Head: Yes normal to inspection Ears: external ears normal General nose exam: Normal external nose present Mouth: Normal oral and palatal mucosa present and oropharynx normal Throat: Yes posterior oropharynx normal Eyes: General: appearance normal, both eyes and all related structures Neck: Other: supple Neck: Yes normal visual inspection Chest: Chest palpation & inspection: normal inspection of the chest Resp: Auscultation: clear to auscultation bilaterally Cardio: Jugular venous distension: no JVD Rate: regular rate Rhythm: regular rhythm Heart sounds: S1 normal heart sound present and S2 normal heart sound present GI: Inspection: Yes normal to inspection Palpation (GI): Soft to palpation, nontender and No hepatosplenomegaly present Auscultation: normal bowel sounds : General: Yes no CVA tenderness Back/Spine/Pelvis: Back: no CVA tenderness Skin: General skin exam: no rashes or lesions noted Neuro: General: oriented to person and patient oriented x3 Cranial nerves: Yes CN's II-XII intact bilaterally Motor exam (neuro): 5/5 motor strength present throughout Sensory Exam: No Sensory deficit (Neuro) Extrem: Other: right knee with medial joint line pain, no effusion, no laxity, FROM passively Psych: Appearance: grossly normal Course Reevaluation(s) Reevaluation #1: Impression is knee strain with the possibility of medial meniscus tear, will refer patient to Dr. Alarcon Time: 00:12 MDM - Extremity Injury (Lower) Imaging Data right knee: Radiologist's impression: FINDINGS: No acute fractures or malalignment. Mild joint space narrowing and marginal osteophytes in the medial compartment. No joint effusion. No unexpected radiopaque foreign bodies.? XR/XR knee RT 3V IMPRESSION: No acute fractures or malalignment. Mild degenerative osteoarthritis of the medial compartment. ? Discharge Plan Discharge Clinical Impression: Knee strain Qualifiers: Encounter type: initial encounter Laterality: right Qualified Code(s): S86.911A - Strain of unspecified muscle(s) and tendon(s) at lower leg level, right leg, initial encounter Acute internal derangement of knee Qualifiers: Laterality: right Qualified Code(s): M23.91 - Unspecified internal derangement of right knee Patient Disposition: Home, Self-Care Instructions: Knee Pain (ED), Knee Immobilizer (ED) Prescriptions: New meloxicam [Mobic] 15 mg tablet 15 mg PO DAILY Qty: 10 RF: 0 No Action metoclopramide HCl [Reglan] 10 mg tablet 10 mg PO Q6H PRN (Reason: nausea and vomiting) Qty: 14 RF: 0 Referrals: Tyrel Alarcon MD [Physician] - 5 days
[2021-03-13 00:23] VITALS: BP 130/78; PULSE 82; RESP 20; TEMP 36.9; O2SAT 98
[2021-03-13] MEDS: Ketorolac Tromethamine 60 MG/2 ML VIAL IM (00:28)
== END 2021-03-13 00:32 | disposition home or self-care (01) ==
PROVIDERS: Emergency Provider Emergency Medicine; PCP Nurse Practitioner Family
DX: S86.911A Strain of unspecified muscle(s) and tendon(s) at lower leg level, right leg, initial encounter (principal); M23.91 Unspecified internal derangement of right knee; W06.XXXA Fall from bed, initial encounter; Y93.9 Activity, unspecified; Y92.009 Unspecified place in unspecified non-institutional (private) residence as the place of occurrence of the external cause; Y99.9 Unspecified external cause status; Z79.899 Other long term (current) drug therapy
CPT/HCPCS: 73562; 96372; 99283; 99284; J1885

== ENCOUNTER 2021-03-21 16:41 | Emergency (ER) | payer OTHER, SELFPAY | END 2021-03-21 23:06 | disposition left against medical advice (07) | PROVIDERS: Emergency Provider Emergency Medicine; PCP Nurse Practitioner Family | DX: M25.561 Pain in right knee (principal) ==

== ENCOUNTER 2021-03-22 20:27 | Emergency (ER) | payer OTHER, SELFPAY ==
--- NOTE | ~2021-03-22 | XR_ITS ---
EXAMINATION: XR KNEE, RIGHT CLINICAL INFORMATION: Right knee pain. COMPARISON: 09/06/2020 right knee radiographs. TECHNIQUE: Four views of the right knee. FINDINGS: [id number] tricompartmental degenerative joint changes are seen most pronounced in the medial femoral-tibial compartment. There is no acute fracture, dislocation or joint effusion. The soft tissues are unremarkable. XR/XR knee RT 3V IMPRESSION: [id number] tricompartmental degenerative joint changes most consistent with osteoarthritis. Medial femoral-tibial degenerative joint changes appear increased compared to the previous study.
[2021-03-22 22:05] VITALS: BP 136/62; PULSE 80; RESP 18; TEMP 36.7; O2SAT 99; BMI 40.7
--- NOTE | 2021-03-23 00:45 | ED.LOWEXIN ---
HPI - Extremity Injury (Lower) General Chief Complaint: Extremity Injury, Lower Stated Complaint: knee pain Time Seen by Provider: 03/22/21 22:53 Source: patient Mode of arrival: ambulatory History of Present Illness HPI Narrative: 36-year-old female arrives with acute on chronic right knee pain that she states earlier in the evening she felt a pop but otherwise denies any trauma to the knee and states that she has a follow-up appointment with Orthopedics next week on March 30. Otherwise, she denies any numbness/tingling/weakness to the lower extremity. Related Data Previous Rx's Medication Instructions Recorded naproxen 500 mg tablet 500 mg PO BID PRN #14 tab 02/08/20 prednisone 20 mg tablet 40 mg PO DAILY 5 Days #10 tab 02/08/20 tramadol 50 mg tablet 50 mg PO Q8H PRN #10 tab 03/21/20 nitrofurantoin 100 mg PO Q12H 7 Days #14 cap 04/26/20 monohydrate/macrocrystals 100 mg capsule (Macrobid) ciprofloxacin HCl 500 mg tablet 500 mg PO Q12H 3 Days #6 tab 05/01/20 naproxen 500 mg tablet 500 mg PO BID PRN #14 tab 05/01/20 tramadol 50 mg tablet 50 mg PO TID PRN #9 tab 05/24/20 cyclobenzaprine 10 mg tablet 10 mg PO TID PRN #20 tab 05/28/20 nitrofurantoin 100 mg PO Q12H 7 Days #14 cap 07/04/20 monohydrate/macrocrystals 100 mg capsule (Macrobid) phenazopyridine 200 mg tablet 200 mg PO TID PRN #6 tab 07/04/20 (Pyridium) oxycodone-acetaminophen 5 mg-325 1 tab PO Q6H PRN #7 tab 09/06/20 mg tablet (Percocet) ibuprofen 600 mg tablet 600 mg PO Q6H PRN #20 tab 10/04/20 cyclobenzaprine 10 mg tablet 10 mg PO TID PRN #14 tab 10/17/20 ondansetron 4 mg disintegrating 4 mg PO Q8H PRN #20 tab 10/17/20 tablet ketorolac 10 mg tablet 10 mg PO Q6H PRN 5 Days #20 tab 03/23/21 Allergies Allergy/AdvReac Type Severity Reaction Status Date / Time No Known Allergies Allergy Verified 03/22/21 22:05 [No Known Allergies*] Review of Systems Review of Systems: Pertinent positives and negatives as stated in HPI 10 point review of systems is otherwise negative. [facility] Past Medical History Source: nursing notes reviewed Medical History Anxiety Arthritis Asthma Chronic cystitis Depression PTSD (post-traumatic stress disorder) Surgical History H/O knee surgery H/O tubal ligation Hx of cholecystectomy Hx of shoulder surgery S/P foot surgery Social History Social History Alcohol intake: never Patient Tobacco Use Status: Never used Tobacco Advance Directives: No Advance Directives Information Provided: Yes Patient : No Physical Exam Vital Signs: Vital Signs: Last Vital Signs Temp 98.1 F 03/22/21 22:05 Pulse 80 03/22/21 22:05 Resp 18 03/22/21 22:05 BP 136/62 03/22/21 22:05 Pulse Ox 99 03/22/21 22:05 BMI result Body Mass Index 40.7 VITAL SIGNS: Reviewed. GENERAL: Well developed, well nourished, in no acute distress. HEAD: Normocephalic/atraumatic EYES: PERRLA, EOMI LUNGS: Normal breath sounds. No adventitious sounds or accessory muscle use. SpO2<99> CARDIOVASCULAR: Regular rate and rhythm without noted murmurs ABDOMEN: Soft, non-tender, non-distended with bowel sounds RIGHT LOWER EXTREMITY: No deformities, erythema, induration, effusion noted at right knee tenderness on palpation patellar ligament and along medial aspect. NEUROLOGIC: Alert and oriented x 4. Course Course Course Narrative: 36-year-old female with history and clinical presentation consistent with acute on chronic osteoarthritis and review of imaging studies negative for acute findings but demonstrating tricompartmental joint disease. Patient received combination analgesics here in the emergency room as well as placement of an Deion wrap for comfort and was otherwise discharged home in stable condition with strong encouragement to follow-up this next week with her orthopedic appointment. Discharge Plan Discharge Clinical Impression: Degenerative joint disease of knee, right Patient Disposition: Home, Self-Care Instructions: Osteoarthritis (ED), Knee Pain (ED) Additional Instructions: 1. Tylenol 1000 mg, orally, every 6 hours as needed for pain control. Do not exceed 4000 mg within 24 hours. 2. Apply Deion wrap daily when ambulating. Keep your appointment next week as scheduled. 3. Consider using [id number] lidocaine patch, apply to the knee as directed on the outside packaging. Return to the ER for worsening symptoms. Prescriptions: New ketorolac 10 mg tablet 10 mg PO Q6H PRN (Reason: pain) 5 Days Qty: 20 RF: 0 No Action naproxen 500 mg tablet 500 mg PO BID PRN (Reason: pain) Qty: 14 RF: 0 prednisone 20 mg tablet 40 mg PO DAILY 5 Days Qty: 10 RF: 0 tramadol 50 mg tablet 50 mg PO Q8H PRN (Reason: pain) Qty: 10 RF: 0 ciprofloxacin HCl 500 mg tablet 500 mg PO Q12H 3 Days Qty: 6 RF: 0 naproxen 500 mg tablet 500 mg PO BID PRN (Reason: pain) Qty: 14 RF: 0 nitrofurantoin monohyd/m-cryst [Macrobid] 100 mg capsule 100 mg PO Q12H 7 Days Qty: 14 RF: 0 phenazopyridine [Pyridium] 200 mg tablet 200 mg PO TID PRN (Reason: pain) Qty: 6 RF: 0 ibuprofen 600 mg tablet 600 mg PO Q6H PRN (Reason: pain) Qty: 20 RF: 0 nitrofurantoin monohyd/m-cryst [Macrobid] 100 mg capsule 100 mg PO Q12H 7 Days Qty: 14 RF: 0 tramadol 50 mg tablet 50 mg PO TID PRN (Reason: pain) Qty: 9 RF: 0 cyclobenzaprine 10 mg tablet 10 mg PO TID PRN (Reason: muscle spasm) Qty: 20 RF: 0 oxycodone-acetaminophen [Percocet] 5-325 mg tablet 1 tab PO Q6H PRN (Reason: pain) Qty: 7 RF: 0 cyclobenzaprine 10 mg tablet 10 mg PO TID PRN (Reason: muscle spasm) Qty: 14 RF: 0 ondansetron 4 mg tablet,disintegrating 4 mg PO Q8H PRN (Reason: nausea and vomiting) Qty: 20 RF: 0 Referrals: Rush,Charissa, [employer] [Primary Care Provider] - 2 days
[2021-03-23] MEDS: Acetaminophen 325 MG TABLET 975 MG PO (00:50)
[2021-03-23] MEDS: Ketorolac Tromethamine 30 MG/ML VIAL 15 MG IM (00:51)
[2021-03-23 01:21] VITALS: BP 128/76; PULSE 62; RESP 16; O2SAT 98
== END 2021-03-23 01:22 | disposition home or self-care (01) ==
PROVIDERS: Emergency Provider Student in an Organized Health Care Education/Training Program; PCP Nurse Practitioner Family
DX: M17.11 Unilateral primary osteoarthritis, right knee (principal); J45.909 Unspecified asthma, uncomplicated
CPT/HCPCS: 73562; 96372; 99283; 99284; J1885

== ENCOUNTER 2021-10-11 10:34 | Emergency (ER) | payer OTHER, SELFPAY ==
[2021-10-11 10:42] VITALS: BP 121/70; PULSE 68; RESP 18; TEMP 36.7; O2SAT 99; BMI 42.5
--- NOTE | 2021-10-11 12:49 | ED_ITS ---
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 Pat ient states the next day she woke up with left side of neck stiff and hurting. patient states painful to turn head/neck to the right and left. patient denies any photopbia, headache, fever, chills, n[place]ase[place], emesis, chest pain, jaw pain, shortness of breath, pluerisy, leg swelling, calf pain, or anyone dying from heart attack/LA less than 40. Patient denies any control use, recent long travel, recent surgery, recent trauma, or history of blood clots Related Data Previous Rx's Medication Instructions Recorded naproxen 500 mg tablet 500 mg PO BID PRN pain #14 tabs 02/08/20 prednisone 20 mg tablet 40 mg PO DAILY 5 days #10 tabs 02/08/20 tramadol 50 mg tablet 50 mg PO Q8H PRN pain #10 tabs 03/21/20 nitrofurantoin 100 mg PO Q12H 7 days #14 caps 04/26/20 monohydrate/macrocrystals 100 mg capsule (Macrobid) ciprofloxacin HCl 500 mg tablet 500 mg PO Q12H 3 days #6 tabs 05/01/20 naproxen 500 mg tablet 500 mg PO BID PRN pain #14 tabs 05/01/20 tramadol 50 mg tablet 50 mg PO TID PRN pain #9 tabs 05/24/20 cyclobenzaprine 10 mg tablet 10 mg PO TID PRN muscle spasm #20 05/28/20 tabs nitrofurantoin 100 mg PO Q12H 7 days #14 caps 07/04/20 monohydrate/macrocrystals 100 mg capsule (Macrobid) phenazopyridine 200 mg tablet 200 mg PO TID PRN pain 6 doses #6 07/04/20 (Pyridium) tabs oxycodone-acetaminophen 5 mg-325 1 tab PO Q6H PRN pain #7 tabs 09/06/20 mg tablet (Percocet) ibuprofen 600 mg tablet 600 mg PO Q6H PRN pain #20 tabs 10/04/20 cyclobenzaprine 10 mg tablet 10 mg PO TID PRN muscle spasm #14 10/17/20 tabs ondansetron 4 mg disintegrating 4 mg PO Q8H PRN nausea and 10/17/20 tablet vomiting #20 tabs metoclopramide HCl 10 mg tablet 10 mg PO Q6H PRN nausea and 10/22/20 (Reglan) vomiting #14 tabs meloxicam 15 mg tablet (Mobic) 15 mg PO DAILY #10 tabs 03/13/21 ketorolac 10 mg tablet 10 mg PO Q6H PRN pain 5 days #20 03/23/21 tabs cyclobenzaprine 10 mg tablet 10 mg PO TID PRN muscle spasm 7 10/11/21 days #21 tabs naproxen 500 mg tablet 500 mg PO BID PRN pain 10 days #20 10/11/21 tabs prednisone 20 mg tablet 40 mg PO DAILY 5 days #10 tabs 10/11/21 Allergies Allergy/AdvReac Type Severity Reaction Status Date / Time No Known Allergies Allergy Verified 06/10/21 09:12 Review of Systems Review of Systems: neck/shoulder/trapseizus pain after heavy lifting of boxes Yes all other systems are reviewed and are negative PMFSH Past Medical History Medical History Arthritis Asthma Migraines Obesity Surgical History H/O knee surgery Hx of cholecystectomy Hx of shoulder surgery Tubal ligation status Social History Social History (System 06/10/21 @ 09:12 by Jaqui Duggan) Alcohol intake: never Patient Tobacco Use Status: Never used Tobacco Advance Directives: Yes Advance Directives Information Provided: Yes Advance Directives on File: No Physical Exam ED Vital Signs: Vital Signs - 24 hr 10/11/21 10:42 Temperature 98.0 F Pulse Rate 68 Respiratory Rate 18 Blood Pressure 121/70 Pulse Oximetry 99 Oxygen Delivery Method Room Air BMI result Body Mass Index 42.5 Const General: cooperative, healthy appearing, comfortable, no acute distress, well developed, alert, awake and Physically active Orientation/consciousness: patient oriented x3 HENMT Head: Yes normal to inspection, Yes No palpable skull fracture present, Yes normocephalic, Yes atraumatic and No abrasion Ears: hearing grossly normal bilaterally, external ears normal, TM's normal bilaterally, TM normal on the right, TM normal on the left, EAC's normal, mastoids normal and no periauricular adenopathy Throat: Yes posterior oropharynx normal, Yes tonsils normal and Yes uvula midline Eyes General: appearance normal, both eyes and all related structures Neck Neck: Yes normal visual inspection, Yes full ROM, Yes no lymphadenopathy, Yes no meningeal signs, Yes trachea midline, Yes supple, No anterior neck swelling and No tender Neck images: 1. pain on range of motion and tenderness on palpation. negative for ecchymosis, or erythema or cervical lymph nodes swollen. Chest Chest palpation & inspection: normal inspection of the chest and normal palpation of entire chest wall Resp Effort & Inspection: normal respiratory effort and able to speak in complete sentences Auscultation: clear to auscultation bilaterally Cardio Jugular venous distension: no JVD Heart sounds: S1 normal heart sound present and S2 normal heart sound present GI Inspection: Yes normal to inspection and No abdominal wall ecchymosis Palpation (GI): Soft to palpation, not firm, nontender, no guarding and not rigid General: No CVA tenderness and Yes no CVA tenderness Back/Spine/Pelvis Back: no CVA tenderness, No CVA tenderness and No back tenderness Back/spine/pelvis image: 1. Positive for left trapezius tenderness on palpation and range of motion of shoulder. Negative for ecchymosis, crepitus, or scapular deformity Skin General skin exam: no rashes or lesions noted and elasticity normal Neuro General: patient oriented x3, gait normal, tone normal and no meningeal signs Cranial nerves: Yes CN's II-XII intact bilaterally Extrem Other: left shoulder negative for any deformity, swelling, redness, ecchymosis. Neurovascular exam of the left upper extremity intact. shoulder exam range of motion intact. General: Yes normal to inspection and Yes full ROM Psych Appearance: grossly normal, well kempt and not disheveled Course Course Course Narrative: Muscle spasm versus sprain. Reevaluation(s) Reevaluation #1: No cardiac evaluation indicated. Not suspecting any and my PE. 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 Patient has no risk factors for myocardial infarction or PE. Negative for any bone crepitus/ tenderness to indicate for any imaging. No blunt trauma to neck, shoulder, or back. Patient discharged with NSAIDs, muscle relaxers, and steroids. patient educated on symptoms of myocardial infarction and pulmonary embolism and told to return to the ED if she has them Time: 13:03 Medical Decision Making MDM Narrative Medical decision making narrative: Muscle spasm. Discharge Plan Discharge Clinical Impression: Torticollis, Muscle spasm Patient Disposition: Home, Self-Care Instructions: Sprain (ED), Muscle Spasm (ED) Additional Instructions: return to the ED immediately for any neck/shoulder pain referring to chest, jaw pain chest pain, shortness of breath, numbness / tingling of left upper extremity, headache, dizziness, light bothering the eyes, fever, slurred speech, neck stiffness, facial droop, paralysis of extremities, leg swelling, calf pain, weakness, dizziness, syncope, worsening neck pain, swelling of extremites, redness, bluish/black discoloration or any other concerning symptoms. Please follow up with PCP Prescriptions: New prednisone 20 mg tablet 40 mg PO DAILY 5 Days Qty: 10 0RF cyclobenzaprine 10 mg tablet 10 mg PO TID PRN (Reason: muscle spasm) 7 Days Qty: 21 0RF Rx Instructions: side effect is drowsiness. Do not take at work or while driving. naproxen 500 mg tablet 500 mg PO BID PRN (Reason: pain) 10 Days Qty: 20 0RF No Action naproxen 500 mg tablet 500 mg PO BID PRN (Reason: pain) Qty: 14 0RF prednisone 20 mg tablet 40 mg PO DAILY 5 Days Qty: 10 0RF tramadol 50 mg tablet 50 mg PO Q8H PRN (Reason: pain) Qty: 10 0RF ciprofloxacin HCl 500 mg tablet 500 mg PO Q12H 3 Days Qty: 6 0RF naproxen 500 mg tablet 500 mg PO BID PRN (Reason: pain) Qty: 14 0RF nitrofurantoin monohyd/m-cryst [Macrobid] 100 mg capsule 100 mg PO Q12H 7 Days Qty: 14 0RF Rx Instructions: must administer with a meal/food phenazopyridine [Pyridium] 200 mg tablet 200 mg PO TID PRN (Reason: pain) Qty: 6 0RF ibuprofen 600 mg tablet 600 mg PO Q6H PRN (Reason: pain) Qty: 20 0RF metoclopramide HCl [Reglan] 10 mg tablet 10 mg PO Q6H PRN (Reason: nausea and vomiting) Qty: 14 0RF nitrofurantoin monohyd/m-cryst [Macrobid] 100 mg capsule 100 mg PO Q12H 7 Days Qty: 14 0RF Rx Instructions: must administer with a meal/food tramadol 50 mg tablet 50 mg PO TID PRN (Reason: pain) Qty: 9 0RF Rx Instructions: side effect is drowsiness. Do not take while at work or while driving. Do not take this medication with cyclobenzaprine at the same time. cyclobenzaprine 10 mg tablet 10 mg PO TID PRN (Reason: muscle spasm) Qty: 20 0RF oxycodone-acetaminophen [Percocet] 5-325 mg tablet 1 tab PO Q6H PRN (Reason: pain) Qty: 7 0RF Rx Instructions: Narcotic, no driving for 6 hours after taking this medication cyclobenzaprine 10 mg tablet 10 mg PO TID PRN (Reason: muscle spasm) Qty: 14 0RF ondansetron 4 mg tablet,disintegrating 4 mg PO Q8H PRN (Reason: nausea and vomiting) Qty: 20 0RF meloxicam [Mobic] 15 mg tablet 15 mg PO DAILY Qty: 10 0RF ketorolac 10 mg tablet 10 mg PO Q6H PRN (Reason: pain) 5 Days Qty: 20 0RF Rx Instructions: 1. Patient received Toradol in the emergency room. 2. Patient should be instructed to stop all other NSAIDs. Stand Alone Forms: Work/School Release Discharge Date/Time: 10/11/21 13:13 Print Language: Divehi
== END 2021-10-11 13:13 | disposition home or self-care (01) ==
PROVIDERS: Emergency Provider Student in an Organized Health Care Education/Training Program; PCP Nurse Practitioner Family
DX: M43.6 Torticollis (principal); R25.2 Cramp and spasm
CPT/HCPCS: 99281

== ENCOUNTER 2021-11-12 13:50 | Emergency (ER) | payer OTHER, SELFPAY ==
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
[2021-11-12 14:41] VITALS: BP 145/90; PULSE 86; RESP 18; TEMP 36.8; O2SAT 97; BMI 41.6
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
[2021-11-12] MEDS: Ibuprofen 800 MG TABLET PO (18:38)
== END 2021-11-12 18:52 | disposition home or self-care (01) ==
PROVIDERS: Emergency Provider Emergency Medicine; PCP Nurse Practitioner Family
DX: S00.93XA Contusion of unspecified part of head, initial encounter (principal); S60.221A Contusion of right hand, initial encounter; R51.9 Headache, unspecified; R42 Dizziness and giddiness; M54.2 Cervicalgia; V43.52XA Car driver injured in collision with other type car in traffic accident, initial encounter; Y93.9 Activity, unspecified; Y92.410 Unspecified street and highway as the place of occurrence of the external cause; Y99.9 Unspecified external cause status; Z79.899 Other long term (current) drug therapy
CPT/HCPCS: 70450; 72125; 73110; 73130; 99282; 99284

== ENCOUNTER 2022-04-08 08:43 | Emergency (ER) | payer OTHER, SELFPAY ==
[2022-04-08 08:47] VITALS: BP 108/79; PULSE 79; RESP 18; TEMP 36.3; O2SAT 98; BMI 34.9
--- NOTE | 2022-04-08 09:08 | ECG_ITS ---
Test Reason : DIZZINESS Blood Pressure : / mmHG Vent. Rate : 055 BPM Atrial Rate : 055 BPM P-R Int : 160 ms QRS Dur : 082 ms QT Int : 456 ms P-R-T Axes : 018 015 015 degrees QTc Int : 436 ms Sinus bradycardia Otherwise normal ECG No previous ECGs available Referred By: Mackenzie Rowley Electronically Signed By:Alejo Oscar
--- NOTE | 2022-04-08 09:10 | ED.GENADULT ---
HPI - General Adult General Chief complaint: Nausea/Vomiting/Diarrhea Stated complaint: Flu Symptoms Time Seen by Provider: 04/08/22 08:59 Source: patient Mode of arrival: ambulatory History of Present Illness HPI narrative: 37-year-old female with a past medical history of anxiety, asthma, depression, migraines, obesity, PTSD, idiopathic intracranial hypertension, vertigo, presenting to the ED complaining of generalized fatigue/weakness, myalgias, nausea, vomiting, diarrhea, room spinning dizziness elicited on position changes, and lower abdominal discomfort x 2 days. Denies new or worsening headache, vision loss, dysuria/hematuria, recent travel, sick contacts, SOB/CP Onset (ago): day(s) Related Data Previous Rx's Medication Instructions Recorded naproxen 500 mg tablet 500 mg PO BID PRN pain #14 tabs 02/08/20 prednisone 20 mg tablet 40 mg PO DAILY 5 days #10 tabs 02/08/20 tramadol 50 mg tablet 50 mg PO Q8H PRN pain #10 tabs 03/21/20 nitrofurantoin 100 mg PO Q12H 7 days #14 caps 04/26/20 monohydrate/macrocrystals 100 mg capsule (Macrobid) ciprofloxacin HCl 500 mg tablet 500 mg PO Q12H 3 days #6 tabs 05/01/20 naproxen 500 mg tablet 500 mg PO BID PRN pain #14 tabs 05/01/20 tramadol 50 mg tablet 50 mg PO TID PRN pain #9 tabs 05/24/20 cyclobenzaprine 10 mg tablet 10 mg PO TID PRN muscle spasm #20 05/28/20 tabs nitrofurantoin 100 mg PO Q12H 7 days #14 caps 07/04/20 monohydrate/macrocrystals 100 mg capsule (Macrobid) phenazopyridine 200 mg tablet 200 mg PO TID PRN pain 6 doses #6 07/04/20 (Pyridium) tabs oxycodone-acetaminophen 5 mg-325 1 tab PO Q6H PRN pain #7 tabs 09/06/20 mg tablet (Percocet) ibuprofen 600 mg tablet 600 mg PO Q6H PRN pain #20 tabs 10/04/20 cyclobenzaprine 10 mg tablet 10 mg PO TID PRN muscle spasm #14 10/17/20 tabs ondansetron 4 mg disintegrating 4 mg PO Q8H PRN nausea and 10/17/20 tablet vomiting #20 tabs metoclopramide HCl 10 mg tablet 10 mg PO Q6H PRN nausea and 10/22/20 (Reglan) vomiting #14 tabs meloxicam 15 mg tablet (Mobic) 15 mg PO DAILY #10 tabs 03/13/21 ketorolac 10 mg tablet 10 mg PO Q6H PRN pain 5 days #20 03/23/21 tabs cyclobenzaprine 10 mg tablet 10 mg PO TID PRN muscle spasm 7 10/11/21 days #21 tabs naproxen 500 mg tablet 500 mg PO BID PRN pain 10 days #20 10/11/21 tabs prednisone 20 mg tablet 40 mg PO DAILY 5 days #10 tabs 10/11/21 naproxen 500 mg tablet 500 mg PO BID PRN pain 10 days #20 11/12/21 tabs Allergies Allergy/AdvReac Type Severity Reaction Status Date / Time No Known Allergies Allergy Verified 06/10/21 09:12 Review of Systems Review of Systems: Constitutional: No Fever, No Chills, + Fatigue, + Malaise ENT/Mouth: No Ear Pain, No Nasal Congestion, No sore throat, No Rhinorrhea, No Swallowing Difficulty Eyes: No Eye Pain, No Swelling, No Redness, No Vision Changes Cardiovascular: No Chest Pain, No SOB, No Edema, No Palpitations Respiratory: No Cough, No Sputum, No Dyspnea Gastrointestinal: + Nausea, + Vomiting, + Diarrhea, No Constipation, + Abdominal pain, No Hematochezia, No Melena Genitourinary: No Dysuria, + Urinary Frequency, No Hematuria, No Urinary Incontinence/retention, No Urgency, No Flank Pain, No Urinary Flow Changes, No Hesitancy Musculoskeletal: No joint pain, + Myalgias, No Joint Swelling Skin: No Skin Lesions, No rash Neuro: + Weakness, No Numbness, No Paresthesias, No Loss of Consciousness, No Dizziness, No Headache Yes all other systems are reviewed and are negative Constitutional: Constitutional: Reports as per HPI Neurologic: Denies Abnormal speech present [facility] Past Medical History Attestation statement: The following information was validated with the patient. Medical History Anxiety Arthritis Arthritis Asthma Asthma Chronic cystitis Depression Migraines Obesity PTSD (post-traumatic stress disorder) Surgical History H/O knee surgery H/O knee surgery H/O tubal ligation Hx of cholecystectomy Hx of cholecystectomy Hx of shoulder surgery Hx of shoulder surgery S/P foot surgery Tubal ligation status Social History Social History Alcohol intake: never Patient Tobacco Use Status: Never used Tobacco Advance Directives: No Advance Directives Information Provided: No Physical Exam ED Vital Signs: Vital Signs - 24 hr 04/08/22 08:47 04/08/22 09:43 04/08/22 09:46 Temperature 97.3 F Pulse Rate 79 65 62 Respiratory Rate 18 Blood Pressure 108/79 104/63 118/65 Pulse Oximetry 98 Oxygen Delivery Method Room Air 04/08/22 09:47 Temperature Pulse Rate 73 Respiratory Rate Blood Pressure 115/67 Pulse Oximetry Oxygen Delivery Method BMI result Body Mass Index 34.9 Const General: cooperative, healthy appearing, no acute distress, well developed, alert and awake Orientation/consciousness: patient oriented x3 Limitations: no limitations HENMT Head: Yes normal to inspection and Yes atraumatic Ears: hearing grossly normal bilaterally, external ears normal, TM's normal bilaterally and mastoids normal General nose exam: Normal external nose present Face and sinus: Yes normal facial exam Mouth: Normal oral and palatal mucosa present Throat: Yes posterior oropharynx normal, Yes tonsils normal, Yes uvula midline, No peritonsillar mass and No uvular edema Eyes General: appearance normal, both eyes and all related structures Pupils: Equal, round and reactive pupils present EOM: EOMs intact bilaterally and Nystagmus present Neck Neck: Yes normal visual inspection and Yes no meningeal signs Resp Effort & Inspection: normal respiratory effort and no respiratory distress Auscultation: clear to auscultation bilaterally, no crackles, no rales, no rhonchi and no wheezes Cardio Rate: regular rate Heart sounds: S1 normal heart sound present and S2 normal heart sound present GI Inspection: Yes normal to inspection Palpation (GI): Soft to palpation, nontender, no guarding and not rigid Skin Rashes: no rashes Wounds: no wounds Neuro General: patient oriented x3, gait normal, tone normal, moves all extremities, no meningeal signs, no focal motor deficits and CN's II-XI intact bilaterally Cranial nerves: Yes CN's II-XII intact bilaterally, Yes Equal, round and reactive pupils present, Yes Bilaterally intact EOM present and Yes Nystagmus present horizontal fast component to the left Cognition (Neuro): normal cognition Speech: No Abnormal speech present Gait exam (Neuro): Normal gait present Motor exam (neuro): 5/5 motor strength present throughout Extrem General: Yes normal to inspection Course Course Course Narrative: -1036--labs unremarkable. UA with blood and leuk esterase, contaminated. -COVID-19/influenza/RSV negative. Orthostatic vital signs negative -on re-evaluation patient reports symptomatic improvement Results discussed with patient including worrisome signs and symptoms and strict return precautions, and when to return to the emergency department. They verbalized understanding and feel safe for discharge at this time. Medications Administered Discontinued Medications Generic Name Dose Route Start Last Admin Trade Name Freq PRN Reason Stop Dose Admin Sodium Chloride 1,000 mls @ 999 mls/hr 04/08/22 09:15 04/08/22 09:37 Ns IV 04/08/22 10:15 999 mls/hr .Q1H1M JANICE Administration Ketorolac Tromethamine 15 mg 04/08/22 09:08 04/08/22 09:36 Ketorolac Tromethamine 15 Mg/Ml Vial IVPUSH 04/08/22 09:09 15 mg ONCE ONE Administration Meclizine HCl 25 mg 04/08/22 09:08 04/08/22 09:37 Meclizine Hcl 25 Mg Tablet PO 04/08/22 09:09 25 mg ONCE ONE Administration Metoclopramide HCl 10 mg 04/08/22 09:08 04/08/22 09:37 Metoclopramide Hcl 10 Mg/2 Ml Vial IVPUSH 04/08/22 09:09 10 mg ONCE ONE Administration Medical Decision Making Medical Decision Making MDM Narrative: 37-year-old female with a past medical history of anxiety, asthma, depression, migraines, obesity, PTSD, idiopathic intracranial hypertension, vertigo, presenting to the ED complaining of generalized fatigue/weakness, myalgias, nausea, vomiting, diarrhea, room spinning dizziness elicited on position changes, and lower abdominal discomfort x 2 days. On exam vital signs stable, NAD, nontoxic appearing, no focal neuro deficits, physical exam as above. Patient ambulating with steady gait. Concern for viral illness vs dehydration/metabolic abnormalities vs BPPV/vertigo vs gastroenteritis. Low suspicion for ICH, appendicitis/diverticulitis/pancreatitis or cholecystitis/cholelithiasis, symptoms atypical for ACS/PE plan: EKG, labs, UA, , orthostatics, IVF, p.o. meclizine, Reglan, Toradol, re-evaluate Please refer to course for remaining clinical decision making, interpretation of labs/imaging results, and discussions with consultants and/or family members. Differential Diagnosis Differential Diagnoses: The differential diagnosis associated with the presentation includes As above Admission/Observation Consideration of admission/observation: Escalation of care including admission/observation considered However labs reassuring Lab Data MDM Lab Attestation statement: I reviewed the patient's lab results. 04/08/22 09:26 04/08/22 09:26 Labs: Lab Results 04/08/22 04/08/22 04/08/22 Range/Units 08:52 09:26 09:26 WBC 5.9 (4.8-10.8) X10*3/uL RBC 5.00 (4.20-5.50) X10*6/uL Hgb 13.5 (12.0-16.0) g/dl Hct 42.1 (37.0-47.0) % MCV 84.2 (80.0-98.0) fL MCH 27.0 (27.0-33.0) pg MCHC 32.1 (31.0-35.0) g/dl RDW 14.0 (11.0-16.0) % Plt Count 304 (160-400) X10*3/uL MPV 9.4 (9.4-12.3) fL Immature Gran % (Auto) 0.5 H (0.0-0.4) % Neut % (Auto) 60.1 (45-73) % Lymph % (Auto) 31.7 (20-40) % Citrus % (Auto) 4.6 (2-11) % Eos % (Auto) 2.4 (0-4) % Baso % (Auto) 0.7 (0-2) % Lymph # (Auto) 1.9 (1.2-4.9) X10*3/uL Citrus # (Auto) 0.3 (0.1-1.2) X10*3/uL Eos # (Auto) 0.1 (0.0-0.4) X10*3/uL Baso # (Auto) 0.0 (0.0-0.2) X10*3/uL Abs Immat Gran (auto) 0.03 (0.00-0.03) X10*3/uL Absolute Neuts (auto) 3.6 (2.0-8.3) x10*3/uL Absolute Nucleated RBC 0.000 (0.0-0.012) X10*3/uL Nucleated RBC % (auto) 0.0 (0.0-0.2) /100WBC Sodium 143 (135-145) mmol/L Potassium 3.7 (3.3-5.1) mmol/L Chloride 112 H (96-108) mmol/L Carbon Dioxide 22 (22-29) mmol/L Anion Gap 13 (12-20) BUN 12 (9-16) mg/dL Creatinine 0.87 (0.5-1.4) mg/dL Estim Creat Clear Calc 95.7 Estimated GFR > 60 Random Glucose 91 (60-115) mg/dL Calcium 9.1 D (8.4-10.2) mg/dL Magnesium 1.9 (1.6-2.6) mg/dL Total Bilirubin 0.5 (0.0-1.0) mg/dL Direct Bilirubin 0.2 (0.0-0.5) mg/dL AST 21 (5-31) U/L ALT 18 (0-31) U/L Alkaline Phosphatase 57 (39-117) U/L Total Protein 7.2 (6.5-8.0) g/dL Albumin 4.3 (3.5-5.0) g/dL Urine Color Urine Appearance Urine pH (5.0-9.0) Ur Specific Grove (1.005-1.025) Urine Protein (Neg-Trace) mg/dL Urine Glucose (UA) (Negative) mg/dL Urine Ketones (Negative) mg/dL Urine Blood (Negative) Urine Nitrite (Negative) Ur Leukocyte Esterase (Negative) Urine RBC (0-2) /HPF Urine WBC (0-5) /HPF Ur Squamous Epith Cells (0-2) /HPF Urine Bacteria (None Seen) Hyaline Casts (0-2) /LPF Urine Test (NEGATIVE) Influenza Type A (PCR) NEGATIVE (Negative) Influenza Type B (PCR) NEGATIVE (Negative) RSV RNA Qual (PCR) NEGATIVE (Negative) SARS-CoV-2 RNA (RT-PCR) NEGATIVE (Negative) 04/08/22 04/08/22 Range/Units 09:26 09:26 WBC (4.8-10.8) X10*3/uL RBC (4.20-5.50) X10*6/uL Hgb (12.0-16.0) g/dl Hct (37.0-47.0) % MCV (80.0-98.0) fL MCH (27.0-33.0) pg MCHC (31.0-35.0) g/dl RDW (11.0-16.0) % Plt Count (160-400) X10*3/uL MPV (9.4-12.3) fL Immature Gran % (Auto) (0.0-0.4) % Neut % (Auto) (45-73) % Lymph % (Auto) (20-40) % Citrus % (Auto) (2-11) % Eos % (Auto) (0-4) % Baso % (Auto) (0-2) % Lymph # (Auto) (1.2-4.9) X10*3/uL Citrus # (Auto) (0.1-1.2) X10*3/uL Eos # (Auto) (0.0-0.4) X10*3/uL Baso # (Auto) (0.0-0.2) X10*3/uL Abs Immat Gran (auto) (0.00-0.03) X10*3/uL Absolute Neuts (auto) (2.0-8.3) x10*3/uL Absolute Nucleated RBC (0.0-0.012) X10*3/uL Nucleated RBC % (auto) (0.0-0.2) /100WBC Sodium (135-145) mmol/L Potassium (3.3-5.1) mmol/L Chloride (96-108) mmol/L Carbon Dioxide (22-29) mmol/L Anion Gap (12-20) BUN (9-16) mg/dL Creatinine (0.5-1.4) mg/dL Estim Creat Clear Calc Estimated GFR Random Glucose (60-115) mg/dL Calcium (8.4-10.2) mg/dL Magnesium (1.6-2.6) mg/dL Total Bilirubin (0.0-1.0) mg/dL Direct Bilirubin (0.0-0.5) mg/dL AST (5-31) U/L ALT (0-31) U/L Alkaline Phosphatase (39-117) U/L Total Protein (6.5-8.0) g/dL Albumin (3.5-5.0) g/dL Urine Color Yellow Urine Appearance Cloudy Urine pH 6.0 (5.0-9.0) Ur Specific Grove >= 1.030 H (1.005-1.025) Urine Protein Trace (Neg-Trace) mg/dL Urine Glucose (UA) Negative (Negative) mg/dL Urine Ketones Negative (Negative) mg/dL Urine Blood Small (1+) H (Negative) Urine Nitrite Negative (Negative) Ur Leukocyte Esterase Moderate (2+) H (Negative) Urine RBC 0-2 (0-2) /HPF Urine WBC 21-50 (0-5) /HPF Ur Squamous Epith Cells >20 (0-2) /HPF Urine Bacteria 4+ (None Seen) Hyaline Casts 0-2 (0-2) /LPF Urine Test NEGATIVE (NEGATIVE) Influenza Type A (PCR) (Negative) Influenza Type B (PCR) (Negative) RSV RNA Qual (PCR) (Negative) SARS-CoV-2 RNA (RT-PCR) (Negative) External Record Review External record reviewed: Outpatient record Prescription Management I considered prescription management with: Pain Medication and Antiviral Discharge Plan Discharge Clinical Impression: Acute viral syndrome Patient Disposition: Home, Self-Care Prescriptions: No Action naproxen 500 mg tablet 500 mg PO BID PRN (Reason: pain) Qty: 14 0RF prednisone 20 mg tablet 40 mg PO DAILY 5 Days Qty: 10 0RF tramadol 50 mg tablet 50 mg PO Q8H PRN (Reason: pain) Qty: 10 0RF ciprofloxacin HCl 500 mg tablet 500 mg PO Q12H 3 Days Qty: 6 0RF naproxen 500 mg tablet 500 mg PO BID PRN (Reason: pain) Qty: 14 0RF nitrofurantoin monohyd/m-cryst [Macrobid] 100 mg capsule 100 mg PO Q12H 7 Days Qty: 14 0RF Rx Instructions: must administer with a meal/food phenazopyridine [Pyridium] 200 mg tablet 200 mg PO TID PRN (Reason: pain) Qty: 6 0RF ibuprofen 600 mg tablet 600 mg PO Q6H PRN (Reason: pain) Qty: 20 0RF metoclopramide HCl [Reglan] 10 mg tablet 10 mg PO Q6H PRN (Reason: nausea and vomiting) Qty: 14 0RF nitrofurantoin monohyd/m-cryst [Macrobid] 100 mg capsule 100 mg PO Q12H 7 Days Qty: 14 0RF Rx Instructions: must administer with a meal/food tramadol 50 mg tablet 50 mg PO TID PRN (Reason: pain) Qty: 9 0RF Rx Instructions: side effect is drowsiness. Do not take while at work or while driving. Do not take this medication with cyclobenzaprine at the same time. cyclobenzaprine 10 mg tablet 10 mg PO TID PRN (Reason: muscle spasm) Qty: 20 0RF oxycodone-acetaminophen [Percocet] 5-325 mg tablet 1 tab PO Q6H PRN (Reason: pain) Qty: 7 0RF Rx Instructions: Narcotic, no driving for 6 hours after taking this medication cyclobenzaprine 10 mg tablet 10 mg PO TID PRN (Reason: muscle spasm) Qty: 14 0RF ondansetron 4 mg tablet,disintegrating 4 mg PO Q8H PRN (Reason: nausea and vomiting) Qty: 20 0RF meloxicam [Mobic] 15 mg tablet 15 mg PO DAILY Qty: 10 0RF ketorolac 10 mg tablet 10 mg PO Q6H PRN (Reason: pain) 5 Days Qty: 20 0RF Rx Instructions: 1. Patient received Toradol in the emergency room. 2. Patient should be instructed to stop all other NSAIDs. prednisone 20 mg tablet 40 mg PO DAILY 5 Days Qty: 10 0RF cyclobenzaprine 10 mg tablet 10 mg PO TID PRN (Reason: muscle spasm) 7 Days Qty: 21 0RF Rx Instructions: side effect is drowsiness. Do not take at work or while driving. naproxen 500 mg tablet 500 mg PO BID PRN (Reason: pain) 10 Days Qty: 20 0RF naproxen 500 mg tablet 500 mg PO BID PRN (Reason: pain) 10 Days Qty: 20 0RF
[2022-04-08 09:32] LABS: MANUAL DIFF FLAG NO
[2022-04-08 09:33] LABS: Basophils Percent Auto 0.7 % (0-2); Eosinophils Absolute Auto 0.1 X10*3/uL (0.0-0.4); Eosinophils Percent Auto 2.4 % (0-4); Hematocrit 42.1 % (37.0-47.0); Hemoglobin 13.5 g/dl (12.0-16.0); Imm Gran Abs Auto 0.03 X10*3/uL (0.00-0.03); Imm Gran Pct Auto 0.5 % (0.0-0.4); Lymphocytes Absolute Auto 1.9 X10*3/uL (1.2-4.9); Lymphocytes Percent Auto 31.7 % (20-40); Mean Corpuscular HGB Conc 32.1 g/dl (31.0-35.0); Mean Corpuscular Volume 84.2 fL (80.0-98.0); Mean Platelet Volume 9.4 fL (9.4-12.3); Monocytes Absolute Auto 0.3 X10*3/uL (0.1-1.2); Monocytes Percent Auto 4.6 % (2-11); Neutrophils Absolute Auto 3.6 x10*3/uL (2.0-8.3); Neutrophils Percent Auto 60.1 % (45-73); Platelet Count 304 X10*3/uL (160-400); White Blood Count 5.9 X10*3/uL (4.8-10.8)
[2022-04-08] MEDS: Ketorolac Tromethamine 15 MG/ML VIAL IVPUSH (09:36)
[2022-04-08 09:37] LABS: Appearance Urine Cloudy; Color Urine Yellow; Glucose Urine UA Negative (Negative); Leukocyte Esterase Urine Moderate (2+) (Negative); Nitrite Urine Negative (Negative); Specific Gravity - Urine >= 1.030 (1.005-1.025); UMIC TRIGGER UACC YES; Urine Blood Small (1+) (Negative); Urine Ketones Negative (Negative); Urine Protein Trace mg/dL (Neg-Trace)
[2022-04-08] MEDS: Meclizine HCl 25 MG TABLET PO (09:37)
[2022-04-08] MEDS: 0.9 % Sodium Chloride 1,000 ML 999 ML IV (09:37)
[2022-04-08] MEDS: Metoclopramide HCl 10 MG/2 ML VIAL IVPUSH (09:37)
[2022-04-08 09:39] LABS: UPreg QC Valid YES; Urine Pregnancy NEGATIVE (NEGATIVE)
[2022-04-08 09:43] VITALS: BP 104/63; PULSE 65
[2022-04-08 09:46] VITALS: BP 118/65; PULSE 62
[2022-04-08 09:47] VITALS: BP 115/67; PULSE 73
[2022-04-08 09:49] LABS: Alanine Aminotransferase 18 U/L (0-31); Albumin Level 4.3 g/dL (3.5-5.0); Alkaline Phosphatase 57 U/L (39-117); Anion Gap 13 (12-20); Aspartate Amino Transferase 21 U/L (5-31); Bacteria Urine 4+ (None Seen); Bilirubin Direct 0.2 mg/dL (0.0-0.5); Bilirubin Total 0.5 mg/dL (0.0-1.0); Blood Urea Nitrogen 12 mg/dL (9-16); Calcium 9.1 mg/dL (8.4-10.2); Carbon Dioxide 22 mmol/L (22-29); Chloride 112 mmol/L (96-108); Creatinine Clr Calc Pharmacy 95.7; Estimated Glomerular Filt Rate > 60; Glucose Random 91 mg/dL (60-115); Hyaline Casts Urine 0-2 /LPF (0-2); Magnesium 1.9 mg/dL (1.6-2.6); Potassium 3.7 mmol/L (3.3-5.1); RBC Urine 0-2 /HPF (0-2); Sodium 143 mmol/L (135-145); Squamous Epithelial Cell Urine >20 /HPF (0-2); Total Protein 7.2 g/dL (6.5-8.0); UACC Culture Trigger YES; WBC Urine 21-50 /HPF (0-5)
[2022-04-08 09:51] LABS: Influenza A PCR NEGATIVE (Negative); Influenza B PCR NEGATIVE (Negative); Resp Syncy Virus RNA Qual PCR NEGATIVE (Negative); SARS COV2 PCR INHOUSE NEGATIVE (Negative)
== END 2022-04-08 10:49 | disposition home or self-care (01) ==
PROVIDERS: Physician Assistant; Emergency Provider Emergency Medicine; PCP Nurse Practitioner Family
DX: B34.9 Viral infection, unspecified (principal); M79.10 Myalgia, unspecified site; R42 Dizziness and giddiness; R11.2 Nausea with vomiting, unspecified; Z20.822 Contact with and (suspected) exposure to COVID-19; Z20.828 Contact with and (suspected) exposure to other viral communicable diseases; Z79.899 Other long term (current) drug therapy
CPT/HCPCS: 0241U; 36415; 80048; 80076; 81001; 81025; 83735; 85025; 87086; 87147; 93005; 96361; 96374; 96375; 99284; J1885; J2765

== ENCOUNTER 2023-02-22 11:00 | Emergency (ER) | payer OTHER, SELFPAY ==
--- NOTE | ~2023-02-22 | CT_ITS ---
EXAMINATION: CT ABDOMEN AND PELVIS WITHOUT CONTRAST CLINICAL INFORMATION: Left flank pain COMPARISON: April 2020. TECHNIQUE: Multidetector volumetric imaging was performed from the superior aspect of the liver through the pubic symphysis. Sagittal and coronal reformatted images were obtained on the technologist's workstation. This CT examination was performed using dose optimization techniques as appropriate, variously including the following: *Automated exposure control *Adjustment of mA and/or kV according to patient size (this includes techniques or standardized protocols for targeted exams where dose is matched to indication/reason for exam; i.e. extremities or head) *Use of iterative reconstruction technique DLP: 716 mGy-cm FINDINGS: LUNG BASES: The visualized lung bases are unremarkable. LIVER, GALLBLADDER, AND BILIARY TREE: The liver is normal in size, shape, and attenuation. No focal hepatic lesion or biliary ductal dilatation is present. Status post cholecystectomy. PANCREAS: Unremarkable. SPLEEN: Borderline enlarged at 13.0 cm. ADRENAL GLANDS: Unremarkable. KIDNEYS AND URETERS: Bilateral renal cortical scarring, partially calcific on the left. Small left nephrolith similar to previous evaluation. No new hydronephrosis or ureteral stones. BLADDER: Unremarkable, not distended. GASTROINTESTINAL TRACT: Moderate colonic fecal material. Mild transverse colonic wall thickening may be related to lack of distention although an underlying mild colitis is a consideration. Appendix unremarkable. No small bowel obstructive process or abnormal omental thickening. ABDOMINAL WALL: Small fatty umbilical hernia. LYMPH NODES: No suspiciously enlarged lymphadenopathy. VASCULAR: Unremarkable. PELVIC VISCERA: Left pelvic postsurgical change. Previously noted right ovarian cyst appears resolved. Small posterior 1.3 to 1.4 cm right ovarian cyst or follicle. OSSEOUS STRUCTURES: No acute compression fractures. Degenerative disc space narrowing L5-S1. CT/CT abdomen pelvis wo IV con IMPRESSION: No CT evidence for obstructive uropathy. Bilateral renal cortical scarring, partially calcific on the left. A previously noted small left nephrolith is similar to the previous evaluation. Mild transverse colonic wall thickening may be related to lack of distention although an underlying mild colitis is considered. Previously noted right ovarian cyst appears resolved, with a new small posterior 1.3 to 1.4 cm right ovarian cyst/follicle. Other incidental findings as noted above. Fleischner guidelines were followed.
--- NOTE | ~2023-02-22 | XR_ITS ---
EXAMINATION: XR RIBS, LEFT CLINICAL INFORMATION: Left-sided pain COMPARISON: None available. TECHNIQUE: 3 views of the left ribs were obtained. FINDINGS: Lungs are clear. No consolidation, pneumothorax, or pleural effusion. The cardiomediastinal silhouette and pulmonary vasculature are normal. Osseous structures are unremarkable. Ribs are intact. No fractures are identified. XR/XR ribs LT min 3V w CXR1V IMPRESSION: Unremarkable examination.
[2023-02-22 11:15] VITALS: BP 133/79; PULSE 100; RESP 19; TEMP 36.6; O2SAT 99; BMI 37.7
--- NOTE | 2023-02-22 11:16 | ED.GENADULT ---
HPI - General Adult General Chief complaint: Urogenital-Female Stated complaint: Kidney stones Time Seen by Provider: 02/22/23 18:28 Source: patient, RN notes reviewed and old records reviewed Mode of arrival: ambulatory History of Present Illness HPI narrative: 38-year-old female with a past medical history of anxiety, depression, PTSD, arthritis, asthma, migraines, presenting to the ED complaining of left flank pain x few weeks worsening over the past few days with associated dysuria. Patient admits to recent admission at [facility] for pyelonephritis. Denies fever, chills, nausea, vomiting, hematuria, vaginal bleeding/discharge Onset (ago): day(s) Related Data Previous Rx's Medication Instructions Recorded naproxen 500 mg tablet 500 mg PO BID PRN pain #14 tabs 02/08/20 prednisone 20 mg tablet 40 mg (2 x 20 mg) PO DAILY 5 days 02/08/20 #10 tabs tramadol 50 mg tablet 50 mg PO Q8H PRN pain #10 tabs 03/21/20 nitrofurantoin 100 mg PO Q12H 7 days #14 caps 04/26/20 monohydrate/macrocrystals 100 mg capsule (Macrobid) ciprofloxacin HCl 500 mg tablet 500 mg PO Q12H 3 days #6 tabs 05/01/20 naproxen 500 mg tablet 500 mg PO BID PRN pain #14 tabs 05/01/20 tramadol 50 mg tablet 50 mg PO TID PRN pain #9 tabs 05/24/20 cyclobenzaprine 10 mg tablet 10 mg PO TID PRN muscle spasm #20 05/28/20 tabs nitrofurantoin 100 mg PO Q12H 7 days #14 caps 07/04/20 monohydrate/macrocrystals 100 mg capsule (Macrobid) phenazopyridine 200 mg tablet 200 mg PO TID PRN pain 6 doses #6 07/04/20 (Pyridium) tabs oxycodone-acetaminophen 5 mg-325 1 tab PO Q6H PRN pain #7 tabs 09/06/20 mg tablet (Percocet) ibuprofen 600 mg tablet 600 mg PO Q6H PRN pain #20 tabs 10/04/20 cyclobenzaprine 10 mg tablet 10 mg PO TID PRN muscle spasm #14 10/17/20 tabs ondansetron 4 mg disintegrating 4 mg PO Q8H PRN nausea and 10/17/20 tablet vomiting #20 tabs metoclopramide HCl 10 mg tablet 10 mg PO Q6H PRN nausea and 10/22/20 (Reglan) vomiting #14 tabs meloxicam 15 mg tablet (Mobic) 15 mg PO DAILY #10 tabs 03/13/21 ketorolac 10 mg tablet 10 mg PO Q6H PRN pain 5 days #20 03/23/21 tabs cyclobenzaprine 10 mg tablet 10 mg PO TID PRN muscle spasm 7 10/11/21 days #21 tabs naproxen 500 mg tablet 500 mg PO BID PRN pain 10 days #20 10/11/21 tabs prednisone 20 mg tablet 40 mg (2 x 20 mg) PO DAILY 5 days 10/11/21 #10 tabs naproxen 500 mg tablet 500 mg PO BID PRN pain 10 days #20 11/12/21 tabs meclizine 25 mg tablet 25 mg PO TID PRN dizziness #14 tabs 04/08/22 sulfamethoxazole 800 1 tab PO Q12H 7 days #14 tabs 02/22/23 mg-trimethoprim 160 mg tablet (Bactrim DS) Allergies Allergy/AdvReac Type Severity Reaction Status Date / Time No Known Allergies Allergy Verified 02/22/23 11:15 Review of Systems Review of Systems: Constitutional: No Fever, No Chills ENT/Mouth: No Ear Pain, No Nasal Congestion, No sore throat, No Rhinorrhea, No Swallowing Difficulty Cardiovascular: No Chest Pain, No SOB Respiratory: No Cough, No Sputum Gastrointestinal: No Nausea, No Vomiting, No Diarrhea, No Abdominal pain Genitourinary: + Dysuria, No Urinary Frequency, No Hematuria, No Urinary Incontinence/retention, No Urgency, + Flank Pain Musculoskeletal: No joint pain, No Myalgias, No Joint Swelling Skin: No Skin Lesions, No rash Neuro: No Weakness Yes all other systems are reviewed and are negative Constitutional: Constitutional: Reports as per [facility] Past Medical History Attestation statement: The following information was validated with the patient. Source: old records reviewed Medical History Chronic cystitis Anxiety Depression PTSD (post-traumatic stress disorder) Arthritis Asthma Obesity Arthritis Asthma Migraines Surgical History H/O knee surgery S/P foot surgery Hx of shoulder surgery H/O tubal ligation Hx of cholecystectomy Hx of shoulder surgery Tubal ligation status H/O knee surgery Hx of cholecystectomy Social History Social History Alcohol intake: never Patient Tobacco Use Status: Never used Tobacco Smoked in Last 30 Days: No Use of substances other than those prescribed or required for medical reasons: No Advance Directives: No Advance Directives Information Provided: No Physical Exam ED Vital Signs: Vital Signs - 24 hr 02/22/23 11:15 02/22/23 19:12 02/22/23 19:36 Temperature 98 F 98.2 F Pulse Rate 100 75 Respiratory Rate 19 18 Blood Pressure 133/79 97/69 111/57 L Pulse Oximetry 99 97 Oxygen Delivery Method Room Air Room Air 02/22/23 22:17 Temperature 97.8 F Pulse Rate 70 Respiratory Rate 16 Blood Pressure 104/71 Pulse Oximetry 97 Oxygen Delivery Method Room Air BMI result Body Mass Index 37.7 Const General: cooperative, healthy appearing and no acute distress Orientation/consciousness: patient oriented x3 Limitations: no limitations HENMT Head: Yes normal to inspection and Yes atraumatic Ears: hearing grossly normal bilaterally General nose exam: Normal external nose present Face and sinus: Yes normal facial exam Eyes General: appearance normal, both eyes and all related structures EOM: EOMs intact bilaterally Neck Neck: Yes normal visual inspection and Yes no meningeal signs Resp Effort & Inspection: normal respiratory effort and no respiratory distress Auscultation: clear to auscultation bilaterally Cardio Rate: regular rate Heart sounds: S1 normal heart sound present and S2 normal heart sound present GI Inspection: Yes normal to inspection Palpation (GI): Soft to palpation, nontender, no guarding and not rigid Other: no rash/erythema/ecchymosis or flail chest General: Yes CVA tenderness on the left Back/Spine/Pelvis Back: CVA tenderness Skin Rashes: no rashes Wounds: no wounds Neuro General: patient oriented x3, tone normal and no meningeal signs Cranial nerves: Yes CN's II-XII intact bilaterally Gait exam (Neuro): Normal gait present Extrem General: Yes normal to inspection Course Course Course Narrative: This is an RME: Additional HPI, ROS, PE not included below will be deferred to primary provider. This is a [id number]-female, with a hx of IIH, asthma, and severe osteoarthritis, presenting to the ER with a complaints of left flank pain x several weeks. Was admitted at [facility] [place] several weeks ago for a kidney infection, given abx, IV fluids, d/c following day. F/U with PCP who had a CT scan done on monday and was told she had kidney stones. No fevers. +dysuria. She is tearful. ttp to the left flank Plan: Labs, UA, upreg, CT abd -1941--no leukocytosis. Renal function WNL -UA contaminated with > 20 epithelials >> will obtain repeat UA to determine if infection CT abdomen pelvis wo IV con IMPRESSION: No CT evidence for obstructive uropathy. Bilateral renal cortical scarring, partially calcific on the left. A previously noted small left nephrolith is similar to the previous evaluation. Mild transverse colonic wall thickening may be related to lack of distention although an underlying mild colitis is considered. Previously noted right ovarian cyst appears resolved, with a new small posterior 1.3 to 1.4 cm right ovarian cyst/follicle. Other incidental findings as noted above. Fleischner guidelines were followed. > lower suspicion for colitis. Recommended follow-up with her OBGYN for ovarian cysts XR ribs LT min 3V w CXR1V IMPRESSION: Unremarkable examination. --repeat UA obtained however still contaminated. Due to patient's symptoms and WBCs/ leuko esterase and bacteria will treat for pyelo. Low suspicion for severe sepsis. Patient reports mild symptomatic improvement, feels comfortable with discharge home with PCP follow-up Medications Administered Discontinued Medications Generic Name Dose Route Start Last Admin Trade Name Freq PRN Reason Stop Dose Admin Cyclobenzaprine HCl 10 mg 02/22/23 22:10 02/22/23 22:19 Cyclobenzaprine Hcl 10 Mg Tablet PO 02/22/23 22:11 10 mg ONCE ONE Administration Sodium Chloride 1,000 mls @ 999 mls/hr 02/22/23 19:15 02/22/23 20:47 Ns IV 02/22/23 20:15 Infused .Q1H1M JANICE Infusion Ketorolac Tromethamine 15 mg 02/22/23 19:14 02/22/23 19:30 Ketorolac Tromethamine 15 Mg/Ml Vial IVPUSH 02/22/23 19:15 15 mg ONCE ONE Administration Trimethoprim/Sulfamethoxazole 1 tab 02/22/23 22:21 02/22/23 22:31 Sulfamethox/Trimeth 800/160 Tablet PO 02/22/23 22:22 1 tab ONCE ONE Administration Medical Decision Making Medical Decision Making [facility] Narrative: 38-year-old female with a past medical history of anxiety, depression, PTSD, arthritis, asthma, migraines, presenting to the ED complaining of left flank pain x few weeks worsening over the past few days with associated dysuria. On exam vital signs stable, NAD, nontoxic appearing, physical exam as noted above, admits soft and nontender. Left CVAT noted without rash or erythema. Concern for renal stone vs UTI/pyelo. Lower suspicion for pneumonia/PE or ACS Plan: Labs, UA, CT ordered in triage Please refer to course for remaining clinical decision making, interpretation of labs/imaging results, and discussions with consultants and/or family members. Differential Diagnosis Differential Diagnoses: The differential diagnosis associated with the presentation includes As above Admission/Observation Consideration of admission/observation: Escalation of care including admission/observation considered Lab Data [facility] Lab Attestation statement: I reviewed the patient's lab results. 02/22/23 12:01 02/22/23 12:01 Labs: Lab Results 02/22/23 02/22/23 Range/Units 12:01 20:46 WBC 7.8 (4.8-10.8) X10*3/uL RBC 5.05 (4.20-5.50) X10*6/uL Hgb 13.8 (12.0-16.0) g/dl Hct 42.6 (37.0-47.0) % MCV 84.4 (80.0-98.0) fL MCH 27.3 (27.0-33.0) pg MCHC 32.4 (31.0-35.0) g/dl RDW 13.4 (11.0-16.0) % Plt Count 274 (160-400) X10*3/uL MPV 9.4 (9.4-12.3) fL Immature Gran % (Auto) 0.6 H (0.0-0.4) % Neut % (Auto) 71.7 (45-73) % Lymph % (Auto) 22.7 (20-40) % [place] % (Auto) 3.6 (2-11) % Eos % (Auto) 1.0 (0-4) % Baso % (Auto) 0.4 (0-2) % Lymph # (Auto) 1.8 (1.2-4.9) X10*3/uL [place] # (Auto) 0.3 (0.1-1.2) X10*3/uL Eos # (Auto) 0.1 (0.0-0.4) X10*3/uL Baso # (Auto) 0.0 (0.0-0.2) X10*3/uL Abs Immat Gran (auto) 0.05 H (0.00-0.03) X10*3/uL Absolute Neuts (auto) 5.6 (2.0-8.3) x10*3/uL Absolute Nucleated RBC 0.000 (0.0-0.012) X10*3/uL Nucleated RBC % (auto) 0.0 (0.0-0.2) /100WBC Sodium 141 (135-145) mmol/L Potassium 4.1 (3.3-5.1) mmol/L Chloride 107 (96-108) mmol/L Carbon Dioxide 30 H (22-29) mmol/L Anion Gap 8 L (12-20) BUN 8 L (9-16) mg/dL Creatinine 0.77 (0.5-1.4) mg/dL Estim Creat Clear Calc 111.7 Estimated GFR > 60 Random Glucose 97 (60-115) mg/dL Calcium 9.6 (8.4-10.2) mg/dL Total Bilirubin 0.4 (0.0-1.0) mg/dL Direct Bilirubin 0.2 (0.0-0.5) mg/dL AST 22 (5-31) U/L ALT 18 (0-31) U/L Alkaline Phosphatase 52 (39-117) U/L Total Protein 7.4 (6.5-8.0) g/dL Albumin 4.3 (3.5-5.0) g/dL Lipase 13 (8-78) U/L Beta HCG, Quant < 2 mIU/mL Urine Color Yellow Yellow Urine Appearance Cloudy Cloudy Urine pH 8.0 7.0 (5.0-9.0) Ur Specific [place] 1.020 1.025 (1.005-1.025) Urine Protein Trace Trace (Neg-Trace) mg/dL Urine Glucose (UA) Negative Negative (Negative) mg/dL Urine Ketones Negative 15 (Negative) mg/dL Urine Blood Trace H Negative (Negative) Urine Nitrite Negative Negative (Negative) Ur Leukocyte Esterase Moderate (2+) H Trace H (Negative) Urine RBC 3-5 H 3-5 H (0-2) /HPF Urine WBC 21-50 H 6-10 H (0-5) /HPF Ur Squamous Epith Cells >20 >20 (0-2) /HPF Urine Bacteria 1+ 2+ (None Seen) Hyaline Casts 0-2 0-2 (0-2) /LPF Urine Test NEGATIVE (NEGATIVE) Independent Interpretation I performed an independent interpretation of an: CT Scan Radiology Impression Discussion of test interpretation with radiology: I have reviewed the radiologist's reading. External Record Review External record reviewed: Inpatient record, Office record, Outpatient record, Prior outpatient labs, Prior outpatient radiology, Primary care record and Outside ED record Tests considered The following testing was considered but not selected: As above Prescription Management I considered prescription management with: Pain Medication and Antibiotic Discharge Plan Discharge Clinical Impression: Pyelonephritis Patient Disposition: Home, Self-Care Instructions: Kidney Infection (ED) Additional Instructions: Your urine does look infected. Due to her back pain we will treat for pyelonephritis Bactrim is an antibiotic please take as prescribed Your CAT scan does not show any kidney stones. You do have mild wall thickening concerning for possible colitis. You also to have ovarian cysts please follow-up with her OBGYN Drink plenty of fluids. Call your doctor for close follow-up Is symptoms persist or worsen her pain is unbearable return to the ED Prescriptions: New sulfamethoxazole-trimethoprim [Bactrim DS] 800-160 mg tablet 1 tab PO Q12H 7 Days Qty: 14 0RF No Action naproxen 500 mg tablet 500 mg PO BID PRN (Reason: pain) Qty: 14 0RF prednisone 20 mg tablet 40 mg PO DAILY 5 Days Qty: 10 0RF tramadol 50 mg tablet 50 mg PO Q8H PRN (Reason: pain) Qty: 10 0RF ciprofloxacin HCl 500 mg tablet 500 mg PO Q12H 3 Days Qty: 6 0RF naproxen 500 mg tablet 500 mg PO BID PRN (Reason: pain) Qty: 14 0RF nitrofurantoin monohyd/m-cryst [Macrobid] 100 mg capsule 100 mg PO Q12H 7 Days Qty: 14 0RF Rx Instructions: must administer with a meal/food phenazopyridine [Pyridium] 200 mg tablet 200 mg PO TID PRN (Reason: pain) Qty: 6 0RF ibuprofen 600 mg tablet 600 mg PO Q6H PRN (Reason: pain) Qty: 20 0RF metoclopramide HCl [Reglan] 10 mg tablet 10 mg PO Q6H PRN (Reason: nausea and vomiting) Qty: 14 0RF nitrofurantoin monohyd/m-cryst [Macrobid] 100 mg capsule 100 mg PO Q12H 7 Days Qty: 14 0RF Rx Instructions: must administer with a meal/food tramadol 50 mg tablet 50 mg PO TID PRN (Reason: pain) Qty: 9 0RF Rx Instructions: side effect is drowsiness. Do not take while at work or while driving. Do not take this medication with cyclobenzaprine at the same time. cyclobenzaprine 10 mg tablet 10 mg PO TID PRN (Reason: muscle spasm) Qty: 20 0RF oxycodone-acetaminophen [Percocet] 5-325 mg tablet 1 tab PO Q6H PRN (Reason: pain) Qty: 7 0RF Rx Instructions: Narcotic, no driving for 6 hours after taking this medication cyclobenzaprine 10 mg tablet 10 mg PO TID PRN (Reason: muscle spasm) Qty: 14 0RF ondansetron 4 mg tablet,disintegrating 4 mg PO Q8H PRN (Reason: nausea and vomiting) Qty: 20 0RF meloxicam [Mobic] 15 mg tablet 15 mg PO DAILY Qty: 10 0RF ketorolac 10 mg tablet 10 mg PO Q6H PRN (Reason: pain) 5 Days Qty: 20 0RF Rx Instructions: 1. Patient received Toradol in the emergency room. 2. Patient should be instructed to stop all other NSAIDs. prednisone 20 mg tablet 40 mg PO DAILY 5 Days Qty: 10 0RF cyclobenzaprine 10 mg tablet 10 mg PO TID PRN (Reason: muscle spasm) 7 Days Qty: 21 0RF Rx Instructions: side effect is drowsiness. Do not take at work or while driving. naproxen 500 mg tablet 500 mg PO BID PRN (Reason: pain) 10 Days Qty: 20 0RF naproxen 500 mg tablet 500 mg PO BID PRN (Reason: pain) 10 Days Qty: 20 0RF meclizine 25 mg tablet 25 mg PO TID PRN (Reason: dizziness) Qty: 14 0RF Referrals: Charissa Singh NP [Primary Care Provider] - 2 days Interventions: ED Discharge Assessment Last Done: 02/22/23 22:35 Discharge Date/Time: 02/22/23 22:41
[2023-02-22 12:06] LABS: MANUAL DIFF FLAG NO
[2023-02-22 12:12] LABS: Basophils Percent Auto 0.4 % (0-2); Eosinophils Absolute Auto 0.1 X10*3/uL (0.0-0.4); Hematocrit 42.6 % (37.0-47.0); Hemoglobin 13.8 g/dl (12.0-16.0); Imm Gran Abs Auto 0.05 X10*3/uL (0.00-0.03); Imm Gran Pct Auto 0.6 % (0.0-0.4); Lymphocytes Absolute Auto 1.8 X10*3/uL (1.2-4.9); Lymphocytes Percent Auto 22.7 % (20-40); Mean Corpuscular HGB Conc 32.4 g/dl (31.0-35.0); Mean Corpuscular Hemoglobin 27.3 pg (27.0-33.0); Mean Corpuscular Volume 84.4 fL (80.0-98.0); Mean Platelet Volume 9.4 fL (9.4-12.3); Monocytes Absolute Auto 0.3 X10*3/uL (0.1-1.2); Monocytes Percent Auto 3.6 % (2-11); Neutrophils Absolute Auto 5.6 x10*3/uL (2.0-8.3); Neutrophils Percent Auto 71.7 % (45-73); Platelet Count 274 X10*3/uL (160-400); Red Blood Count 5.05 X10*6/uL (4.20-5.50); Red Cell Distribution Width 13.4 % (11.0-16.0); White Blood Count 7.8 X10*3/uL (4.8-10.8)
[2023-02-22 12:19] LABS: Appearance Urine Cloudy; Color Urine Yellow; Glucose Urine UA Negative (Negative); Leukocyte Esterase Urine Moderate (2+) (Negative); Nitrite Urine Negative (Negative); UMIC TRIGGER UACC YES; Urine Blood Trace (Negative); Urine Ketones Negative (Negative); Urine Protein Trace mg/dL (Neg-Trace)
[2023-02-22 12:21] LABS: UPreg QC Valid YES; Urine Pregnancy NEGATIVE (NEGATIVE)
[2023-02-22 12:44] LABS: Alanine Aminotransferase 18 U/L (0-31); Albumin Level 4.3 g/dL (3.5-5.0); Alkaline Phosphatase 52 U/L (39-117); Anion Gap 8 (12-20); Aspartate Amino Transferase 22 U/L (5-31); Bilirubin Direct 0.2 mg/dL (0.0-0.5); Bilirubin Total 0.4 mg/dL (0.0-1.0); Blood Urea Nitrogen 8 mg/dL (9-16); Calcium 9.6 mg/dL (8.4-10.2); Carbon Dioxide 30 mmol/L (22-29); Chloride 107 mmol/L (96-108); Creatinine Clr Calc Pharmacy 111.7; Estimated Glomerular Filt Rate > 60; Glucose Random 97 mg/dL (60-115); HCG Quantitative < 2 mIU/mL; Lipase 13 U/L (8-78); Potassium 4.1 mmol/L (3.3-5.1); Sodium 141 mmol/L (135-145); Total Protein 7.4 g/dL (6.5-8.0)
[2023-02-22 14:11] LABS: Bacteria Urine 1+ (None Seen); Hyaline Casts Urine 0-2 /LPF (0-2); Squamous Epithelial Cell Urine >20 /HPF (0-2); UACC Culture Trigger YES; WBC Urine 21-50 /HPF (0-5)
[2023-02-22 19:12] VITALS: BP 97/69; PULSE 75; RESP 18; O2SAT 97
[2023-02-22] MEDS: Ketorolac Tromethamine 15 MG/ML VIAL IVPUSH (19:30)
[2023-02-22] MEDS: 0.9 % Sodium Chloride 1,000 ML 999 ML IV (19:32)
[2023-02-22 19:36] VITALS: BP 111/57; TEMP 36.8
--- NOTE | 2023-02-22 20:49 | PC.NURSE ---
pt ambulated well to the bathroom, gait even and steady at this time
[2023-02-22 21:06] LABS: Appearance Urine Cloudy; Color Urine Yellow; Glucose Urine UA Negative (Negative); Leukocyte Esterase Urine Trace (Negative); Nitrite Urine Negative (Negative); Specific Gravity - Urine 1.025 (1.005-1.025); UMIC TRIGGER UACC YES; Urine Blood Negative (Negative); Urine Ketones 15 mg/dL (Negative); Urine Protein Trace mg/dL (Neg-Trace)
[2023-02-22 21:09] LABS: Bacteria Urine 2+ (None Seen); Hyaline Casts Urine 0-2 /LPF (0-2); Squamous Epithelial Cell Urine >20 /HPF (0-2); UACC Culture Trigger YES
[2023-02-22 22:17] VITALS: BP 104/71; PULSE 70; RESP 16; TEMP 36.6; O2SAT 97
[2023-02-22] MEDS: Cyclobenzaprine HCl 10 MG TABLET PO (22:19)
[2023-02-22] MEDS: Sulfamethox/Trimeth 800/160 TABLET 1 TAB PO (22:31)
== END 2023-02-22 22:41 | disposition home or self-care (01) ==
PROVIDERS: Physician Assistant; Physician Assistant Medical; Emergency Provider Emergency Medicine; PCP Nurse Practitioner Family
DX: N12 Tubulo-interstitial nephritis, not specified as acute or chronic (principal); R07.81 Pleurodynia; R10.2 Pelvic and perineal pain; R30.0 Dysuria; Z79.899 Other long term (current) drug therapy
CPT/HCPCS: 36415; 71101; 74176; 80048; 80076; 81001; 81025; 83690; 84702; 85025; 87086; 96361; 96374; 99284; 99285; J1885